=== PATIENT | female | born 1950 | race Hispanic/Latino ===

== ENCOUNTER 2018-03-04 11:54 | Inpatient (IN) | payer MEDICARE, OTHER ==
[2018-03-04 12:21] LABS: Bilirubin Small (Negative); Blood, Urine Large (Negative); Glucose, Urine (Dipstick) >=1000 mg/dL (Negative); Leukocyte Negative (Negative); Nitrite Negative (Negative); Protein, Urine (Dipstick) Negative (Neg-Trace); Urobilinogen 0.2 mg/dL (0.2-1.0)
[2018-03-04 12:27] LABS: Clarity Clear (Clear)
[2018-03-04 12:35] LABS: Other Microscopic Description Less than 2 mL rec'd
[2018-03-04 12:36] LABS: Bacteria/HPF None Seen HPF (None Seen); Hyaline Casts/LPF NONE SEEN LPF (0-3 Hyaline); RBC/HPF 0-3 HPF (0-3); Squamous Epithelial 0-3 HPF (0-3); WBC/HPF 0-3 HPF (0-3); Yeast-All Forms 1+ HPF (None Seen)
[2018-03-04 13:01] LABS: #Basophils 0.1 thou/uL (0.0-0.2); #Eosinphils 0.2 thou/uL (0.0-0.7); #Lymphocytes 1.8 thou/uL (1.20-3.40); #Monocytes 0.4 thou/uL (0.11-0.59); #Neutrophils 3.4 thou/uL (1.40-6.50); %Eosinophils 3.2 % (0.0-10.0); %Lymphocytes 30.7 % (21.0-51.0); %Monocytes 7.4 % (0.0-10.0); %Neutrophils 57.6 % (42.0-75.0); Hemoglobin 12.7 g/dL (12.0-16.0); Mean Corpuscular HGB CONC 34.1 g/dL (32.0-36.0); Mean Corpuscular Hemoglobin 28.3 pg (27.0-31.0); Mean Corpuscular Volume 82.9 fL (78.0-98.0); Mean Platelet Volume 10.3 fL (7.4-10.4); Platelet Count 112 thou/uL (130-400); RBC Distribution Width 13.8 % (11.5-14.5)
[2018-03-04 13:17] LABS: ALT (SGPT) 17 U/L (8-55); AST (SGOT) 17 U/L (5-34); Albumin 3.9 g/dL (3.4-4.8); Alkaline Phosphatase 61 U/L (40-150); Anion Gap 18 mmol/L (10-20); BUN (Urea Nitrogen) 43 mg/dL (9.8-20.1); Bilirubin, Total 0.5 mg/dL (0.2-1.2); Calc. Creatinine Clearance 0 mL/min (70-130); Calcium 10.3 mg/dL (7.8-10.44); Carbon Dioxide 22 mmol/L (23-31); Chloride 89 mmol/L (98-107); Estimated GFR-MDRD 23; Globulin 3.4 g/dL (2.4-3.5); Potassium 5.4 mmol/L (3.5-5.1); Protein, Total 7.3 g/dL (6.0-8.3); Sodium 124 mmol/L (136-145)
[2018-03-04 13:23] LABS: Glucose 637 mg/dL (80-115)
[2018-03-04 13:50] LABS: Base Excess-Venous -2.1 mmol/L (0 (+/- 2.5)); Bicarbonate (HCO3v) 24.8 mmol/L (22.0-29.0); CO2 Tension (PvCO2) 49.7 mmHg (41.0-51.0); Calcium, Ionized 1.23 mmol/L (1.12-1.32); Hemoglobin - Calc 13.9 g/dL (12.0-18.0); O2 Tension (PvO2) 29.6 mmHg (35.0-45.0); Potassium 5.6 mmol/L (3.4-4.7); T. Carbon Dioxide 26.3 mmol/L (1.0-85.0); pH (Venous) 7.306 (7.35-7.45); vO2 Saturation-calc 49.5 % (94-98)
[2018-03-04] MEDS ORDERED: Insulin Regular 100 units/100 ml in NS IVPB SCH (14:00)
--- NOTE | 2018-03-04 15:35 | RAD ---
PORTABLE CHEST ONE VIEW: 02/01/19 at 12:45 p.m. HISTORY: Altered mental status. FINDINGS: Comparison is made with exam of 11/24/15. The heart size is borderline. The lungs are well expanded without focal areas of consolidation, pneum othoraces, pepe pulmonary edema or pleural effusions. IMPRESSION: No acute process. POS: [facility]
--- NOTE | 2018-03-04 15:42 | CT ---
CT BRAIN WITHOUT CONTRAST 03/04/18 HISTORY: Altered mental status. FINDINGS: There are changes of chronic small vessel ischemic disease. No evidence of acute infarct, hemorrhage , midline shift or abnormal extra-axial fluid collections are seen. the ventricular size is appropria te and the basilar cisterns patent. The bony calvarium is intact. The visualized paranasal sinuses an d mastoid air cells are well aerated. IMPRESSION: No CT evidence of acute intracranial process. POS: [facility]
[2018-03-04] MEDS ORDERED: Dextrose 5 %-0.45 % NaCl 1,000 ML IV PRN (16:33)
[2018-03-04] MEDS ORDERED: D5 1/2 NS w/20 mEq KCL 1,000 ML IV PRN (16:33)
[2018-03-04] MEDS ORDERED: NS 0.9% w/ 20 MEQ KCL 1,000 ML/1,000 ML BAG IV PRN ×2 (16:33)
[2018-03-04] MEDS ORDERED: Sodium Chloride 0.9% 1,000 ML IV PRN ×4 (16:33)
[2018-03-04] MEDS ORDERED: Dextrose 5% in Water 1,000 ML IV PRN ×2 (16:33→19:11)
[2018-03-04] MEDS ORDERED: Acetaminophen 325 MG TAB PO PRN (16:34)
[2018-03-04] MEDS ORDERED: Ondansetron ODT 4 MG TAB SL PRN (16:34)
[2018-03-04] MEDS ORDERED: Ondansetron PF 4 MG/2 ML Vial IVP PRN (16:34)
[2018-03-04] MEDS ORDERED: Dextrose 50% Abboject 50 ML SYRINGE SLOW IVP PRN ×2 (16:34→19:16)
[2018-03-04] MEDS ORDERED: Potassium Phosphate 15 MMOL in Sodium Chloride 0.9% 250 ML 250 ML IV PRN (16:36)
[2018-03-04] MEDS ORDERED: CCU ELECTROLYTE REPLACEMENT PROTOCOL FS PRN (16:36)
[2018-03-04] MEDS ORDERED: Magnesium 2 GM/NS 0.9% 100 ML 2 GM in Premix Bag 1 BAG IVPB PRN (16:36)
[2018-03-04] MEDS ORDERED: Potassium Chloride 40 MEQ in Premix Bag 1 BAG IVPB PRN (16:36)
[2018-03-04] MEDS ORDERED: Potassium Phosphate 12 MMOL in Sodium Chloride 0.9% 250 ML 250 ML IV PRN (16:36)
[2018-03-04] MEDS ORDERED: Potassium Phosphate 9 MMOL in Sodium Chloride 0.9% 100 ML IVPB PRN (16:36)
[2018-03-04] MEDS ORDERED: Magnesium Oxide 400 MG TAB PO PRN ×2 (16:36)
[2018-03-04] MEDS ORDERED: Potassium Chloride 20 MEQ TAB PO PRN (16:36)
[2018-03-04] MEDS ORDERED: Potassium Chloride 40 MEQ in Sodium Chloride 0.9% 250 ML 250 ML IVPB PRN (16:36)
[2018-03-04] MEDS ORDERED: ADD ELECTROLYTE REPLACEMENT SET TO PROFILE FS SCH (16:45)
[2018-03-04] MEDS ORDERED: HUMULIN R 100 UNITS in Sodium Chloride 0.9% 100 ML IVPB SCH ×2 (16:45→19:15)
[2018-03-04 17:40] LABS: Anion Gap 14 mmol/L (10-20); BUN (Urea Nitrogen) 40 mg/dL (9.8-20.1); Calc. Creatinine Clearance 0 mL/min (70-130); Calcium 9.6 mg/dL (7.8-10.44); Carbon Dioxide 21 mmol/L (23-31); Chloride 98 mmol/L (98-107); Estimated GFR-MDRD 31; Glucose 300 mg/dL (80-115); Potassium 4.2 mmol/L (3.5-5.1); Sodium 129 mmol/L (136-145)
--- NOTE | 2018-03-04 17:56 | CT ---
CT LUMBAR SPINE NONCONTRAST: 03/04/18 HISTORY: Altered mental status. Hematuria. Back pain. FINDINGS: vertebral body heights and alignment are maintained. Moderate osteophytosis throughout the facets. No acute fracture or dislocation. Small oval lucency in the L1 vertebral body is stable compared to 201 5 and likely represents an atypical hemangioma. No acute fracture or dislocation. IMPRESSION: Disc bulges at multiple levels without focal herniation. Stenosis most severe at the right neural for amen at the lumbosacral junction. Calcification in the arterial structures. IMPRESSION: No acute osseous abnormalities are demonstrated. Degenerative changes lumbar spine. Stenosis most sev ere at the right L5-S1 neural foramen. Clinical correlation regarding the right L5 dermatome is requi red. Atherosclerosis. POS: [facility]
[2018-03-04] MEDS ORDERED: Sodium Chloride 0.9% 1,000 ML IV SCH (18:00)
[2018-03-04 18:07] VITALS: BMI 41.5
--- NOTE | 2018-03-04 18:25 | HP ---
CHIEF COMPLAINT: Altered mental status on and off for the last three weeks. HISTORY OF PRESENT ILLNESS: The patient is a 67-year-old female, who was brought to the emergency room by her daughter with complaints of about her mother acting up, doing things which are not typical for her, not remembering what she had done. She was found to have diabetic ketoacidosis during emergency room evaluation and decision was made about further treatment and diagnostic workup of her medical issues. The patient did not have any headaches. She vomited once last night and the night before. She denied any nausea or diarrhea. She had some abdominal cramping. Also, she complained about some back pain for the last 3 to 4 months. There was no any history of trauma. The daughter mentioned that she noticed that medications the patient had prepared to take in the next 3 days. All of them are gone and she suspects that maybe she took all those medications at once. Also, she is not sure whether the patient is not taking her 's medications, not seen any physician for her illness. Her primary care physician is Dr. Salazar. Her power of lace sewer is Skye Cook, the patient's another daughter. PAST MEDICAL HISTORY: Positive for: 1. Coronary artery disease, status post stenting. 2. Hypothyroidism. 3. Diabetes mellitus, insulin dependent. 4. Hyperlipidemia. 5. Hypertension. PAST SURGICAL HISTORY: 1. Cardiac stent placement. 2. Cholecystectomy. 3. Hysterectomy. 4. Tonsillectomy. PSYCHIATRIC HISTORY: Positive for: 1. Anxiety. 2. Depression. ALLERGIES: NONE. MEDICATIONS: 1. Atorvastatin 10 mg once a day. 2. Cymbalta 60 mg once a day. 3. Aspirin 325 mg once a day. 4. Estradiol one tablet 1 mg once a day. 5. Gabapentin 600 mg four times a day. 6. Glucophage 500 mg three times a day. 7. Insulin Lantus 90 units in the morning and 80 units at night. 8. Victoza 1.8 mg injection daily. 9. Imdur 30 mg once a day. 10. Lovaza 1 g daily. 11. Mavik 2 mg daily. 12. Metoprolol 25 mg twice a day. 13. Omeprazole 40 mg twice a day. 14. Oxybutynin 10 mg once a day. 15. Plavix 75 mg once a day. 16. Ropinirole 1 mg once a day. 17. Synthroid 150 mcg once a day. 18. TriCor 145 mg once a day. 19. Xanax 0.5 mg as needed. 20. Losartan 100 mg once a day. 21. Abilify 5 mg tablets two tablets once a day. FAMILY HISTORY: Her father of lung cancer at the age of 72. He was a smoker. Her mother had heart disease and diabetes mellitus and she passed at the age of 74. SOCIAL HISTORY: She denies any alcohol intake or cigarette smoking or use any illicit drugs. REVIEW OF SYSTEMS: CONSTITUTIONAL: Negative for fever or chills. EYES: Negative for eye pain or eye discharge. ENT: Negative for epistaxis or nasal congestion. CARDIOVASCULAR: Negative for chest pain or palpitation. RESPIRATORY: Negative for shortness of breath or cough. GI: Negative for diarrhea or constipation. Positive for some vomiting. : Positive for some dysuria on and off. Negative for hematuria. PSYCHIATRIC: Negative for suicidal or homicidal ideations. Positive for depression and anxiety in the past. HEMOLYMPHATIC: Negative for easy bruising or clotting abnormalities. MUSCULOSKELETAL: Positive for back pain. PHYSICAL EXAMINATION: GENERAL: She is not in any distress during my visit. Her and her daughter are both present in the room during my visit. VITAL SIGNS: Her blood pressure is 110/58, temperature is 98.0, respiratory rate is 18, pulse is 77, and pulse oximeter is 95% on room air. HEENT: Head is atraumatic and normocephalic. Eyes are PERRLA. Sclerae are nonicteric. Conjunctivae pinkish. Oral mucosa is dry. NECK: Supple. No lymphadenopathy. Thyroid is not palpable. LUNGS: Clear. HEART: S1, S2 normal. No S3. No S4. No any murmur. ABDOMEN: Obese, soft, nontender, nondistended. EXTREMITIES: No clubbing, cyanosis, or edema. She has good pulses on both tibialis posterior and dorsalis pedis arteries similar bilaterally. MUSCULOSKELETAL: She has pain while the pressure is applied to the lumbar spine area. NEUROLOGICAL: She is able to move her all four extremities. She follows my commands. There is no any motor or sensory deficits present. Cranial nerves are intact. LABORATORY DATA: Labs showed normal CBC except for platelet count which is 112 and this is chronic. Chemistry showed sodium of 124, potassium 5.6, chloride 89, CO2 of 22, BUN 43, creatinine 2.1, glucose 637. Lactic acid 1.7 and the rest of chemistry within normal limits. Urinalysis showed more than 1000 of glucose, 15 of ketones, large amount of blood, small amount of bilirubin in the urine, 1+ of urine yeast, but hydroxybutyrate came back at 2.94. Her blood gases, this is venous pH of 7.306, pCO2 49.7, PO2 29.6, and base excess is -2.1. Chest x-ray personally reviewed by me showed no acute cardiopulmonary process. Brain CT showed chronic small-vessel ischemic disease. No evidence of acute infarction. EKG 12-lead showed normal sinus rhythm with ventricular rate of 71 beats per minute. No ischemic changes. Normal axis. IMPRESSION: 1. Diabetic ketoacidosis. 2. Hyperkalemia. 3. Acute on chronic renal insufficiency. 4. Hyponatremia with hypochloremia that is related to diabetic ketoacidosis. 5. Most likely candidal vaginitis based on urinalysis. 6. Chronic thrombocytopenia. 7. Microscopic hematuria, most likely related to a candidal vaginitis. PLAN: Admission to critical care unit. Condition is fair. Activity bedrest and bathroom privileges with assistance. DKA protocol to follow. The patient required two boluses of IV fluids during the emergency room evaluation since her blood pressure went down below 100 systolic. She will receive Diflucan for her candidal vaginitis x1 dose. We will recheck her BMP every 4 hours x2, then tomorrow morning. Recheck her CBC tomorrow morning and beta-hydroxybutyrate level. The patient had several episodes. She had normal CT. We will follow up with this on MRI without contrast. SCDs and Lovenox for DVT prophylaxis. We will also do the CT of the C-spine and lumbar to rule out any other pathology. Job ID: [id number]
[2018-03-05] MEDS: Sodium Chloride 0.9% 1,000 ML IV SCH ×3 (01:45→20:26)
[2018-03-05 05:51] LABS: #Eosinphils 0.3 thou/uL (0.0-0.7); #Lymphocytes 1.1 thou/uL (1.20-3.40); #Monocytes 0.4 thou/uL (0.11-0.59); #Neutrophils 2.6 thou/uL (1.40-6.50); %Eosinophils 6.1 % (0.0-10.0); %Lymphocytes 25.7 % (21.0-51.0); %Monocytes 8.6 % (0.0-10.0); %Neutrophils 58.6 % (42.0-75.0); Hemoglobin 11.6 g/dL (12.0-16.0); Mean Corpuscular HGB CONC 34.3 g/dL (32.0-36.0); Mean Corpuscular Hemoglobin 28.6 pg (27.0-31.0); Mean Corpuscular Volume 83.4 fL (78.0-98.0); Platelet Count 94 thou/uL (130-400); RBC Distribution Width 13.6 % (11.5-14.5); Red Blood Cell (RBC) Count 4.05 mill/uL (4.20-5.40); White Blood Cell (WBC) Count 4.4 thou/uL (4.8-10.8)
[2018-03-05 06:13] LABS: Anion Gap 11 mmol/L (10-20); BUN (Urea Nitrogen) 31 mg/dL (9.8-20.1); Calc. Creatinine Clearance 74 mL/min (70-130); Calcium 8.9 mg/dL (7.8-10.44); Carbon Dioxide 21 mmol/L (23-31); Chloride 102 mmol/L (98-107); Estimated GFR-MDRD 46; Glucose 224 mg/dL (80-115); Potassium 3.9 mmol/L (3.5-5.1); Sodium 130 mmol/L (136-145)
[2018-03-05] MEDS ORDERED: Sodium Chloride 0.9% 1,000 ML IV SCH (07:45)
[2018-03-05] MEDS: Fluconazole 100 MG TAB PO SCH (09:36)
[2018-03-05] MEDS: Enoxaparin Sodium 40 MG/0.4 ML SYRINGE SC SCH (09:36)
--- NOTE | 2018-03-05 09:37 | CON ---
DATE OF CONSULTATION: 03/05/2018 PULMONARY CRITICAL CARE CONSULTATION TIME SPENT: 45 minutes of critical care time. REASON FOR CONSULTATION: DKA. HISTORY OF PRESENT ILLNESS: This is a 67-year-old female, who is unable to give me much in the way history because she is very confused. I have reviewed the history and physical in the chart. She came in yesterday with altered mental status after being found at home by family. She apparently had emesis and complains of abdominal cramping before admission. She was found to be severely hyperglycemic with a blood sugar over 600. PAST MEDICAL HISTORY: 1. Diabetes mellitus type 2, requiring insulin. 2. Coronary artery disease. 3. Hypothyroidism. 4. Hyperlipidemia. 5. Hypertension. 6. Rheumatoid arthritis. 7. Obesity. 8. Diastolic cardiac dysfunction. PAST SURGICAL HISTORY: 1. Coronary stent placement. 2. Cholecystectomy. 3. Hysterectomy. 4. Tonsillectomy. PSYCHIATRIC HISTORY: Remarkable for anxiety and depression. ALLERGIES: NONE. MEDICATIONS: Prior to admission: 1. Atorvastatin 10 mg daily. 2. Cymbalta 60 mg daily. 3. Aspirin 325 mg daily. 4. Estradiol 1 mg daily. 5. Gabapentin 600 mg four times daily. 6. Glucophage 500 mg three times daily. 7. Lantus insulin 90 units in the morning and 80 units at night. 8. Victoza 1.8 mg daily. 9. Imdur 30 mg daily. 10. Lovaza 1 g daily. 11. Mavik 2 mg daily. 12. Metoprolol 25 mg b.i.d. 13. Omeprazole 40 mg twice daily. 14. Oxybutynin 10 mg once daily. 15. Plavix 75 mg daily. 16. Ropinirole 1 mg daily. 17. Synthroid 150 mcg once daily. 18. TriCor 145 mg daily. 19. Xanax 0.5 mg daily. 20. Losartan 100 mg daily. 21. Abilify 5 mg two tablets once daily. FAMILY MEDICAL HISTORY: Father of lung cancer. Mother had heart disease and diabetes. SOCIAL HISTORY: There is no history of alcohol abuse or tobacco consumption. Does not use illicit drugs. REVIEW OF SYSTEMS: Cannot be obtained because the patient is floridly confused at this time. PHYSICAL EXAMINATION: VITAL SIGNS: Temperature 98.7, pulse 86, blood pressure 158/97, O2 saturation 98%, and respiratory rate 23. Intake since admission at least 1374, output not quantitated. HEENT: Remarkable for dry oral mucous membranes. NECK: Without adenopathy, JVD, or bruits. LUNGS: Clear. CARDIAC: S1 and S2, regular. ABDOMEN: Soft and nontender. She has a right upper quadrant open cholecystectomy scar, which is well healed. EXTREMITIES: Without clubbing, cyanosis, or edema. LABORATORY DATA: Sodium 130, potassium 3.9, chloride 102, CO2 of 21, BUN 31, creatinine 1.1, glucose 224. White blood cell count 4.4, hematocrit 33.8, and platelet count 94. Urinalysis showed glucose and ketones. Tox screen showed a beta-hydroxybutyrate of 2.94 is down to 0.71 this morning. DIAGNOSTIC DATA: A chest x-ray from yesterday demonstrates no evidence of mass, effusion, or infiltrate. Lumbar spine CT showed degenerative changes, stenosis of the right L5-S1 neural foramen. Brain CT demonstrates no acute intracranial process. ASSESSMENT: 1. Type 2 diabetes mellitus with mild diabetic ketoacidosis. 2. Severe volume depletion. 3. History of multiple medical problems listed above. 4. Encephalopathy thought secondary to diabetic ketoacidosis. PLAN: 1. The patient is still clinically dry and I would recommend bolusing her with some normal saline. She needs a Velazquez catheter, so we can better monitor her urine output given that she is critically ill. 2. It is likely that she will continue to close her gap and may be able to come off the insulin drip by later this afternoon. Her gap is artificially low at the current time due to her pre-existing hyponatremia. Somehow the hyponatremia is in fact due to hyperglycemia. Job ID: [id number]
[2018-03-05] MEDS ORDERED: Insulin Glargine 90 UNITS in Pre-Filled Syringe 1 EACH SC SCH (10:00)
--- NOTE | 2018-03-05 10:47 | PRG ---
DATE OF SERVICE: 03/05/2018 SUBJECTIVE: The patient is seen and examined at bedside and she is feeling significantly better. There were no any unexpected events overnight. She is on insulin drip. OBJECTIVE: VITAL SIGNS: Blood pressure is 158/97, heart rate 86, respiratory rate 23, and O2 saturation 98% on room air. HEENT: Head is atraumatic and normocephalic. Eyes are PERRLA. Sclerae are nonicteric. Oral mucosa is moist. NECK: Supple. No lymphadenopathy. LUNGS: Clear. HEART: S1 and S2 normal. No S3. No S4. ABDOMEN: Obese, soft, and nontender. EXTREMITIES: No clubbing, cyanosis, or edema. NEUROLOGIC: She follows my commands. She moves her all 4 extremities. There are no any motor or sensory deficits. Cranial nerves are intact. LABORATORY DATA: Labs showed a white count of 4.4, hemoglobin 11.6, hematocrit 33.8, platelet count is 94,000. Sodium is 130, potassium 3.9, chloride 102, CO2 of 21, BUN 31, creatinine 1.17, glucose is down to 207, calcium is 8.9, beta-hydroxybutyrate 0.71. Microbiology, two blood cultures negative. Spine CT showed no acute osseous abnormalities. There is a stenosis, most severe at the right L5-S1 neural foramen and disk bulges at multiple levels without focal herniation, stenosis, most severe at the right neural foramen at the lumbosacral junction. IMPRESSION: 1. Diabetic ketoacidosis with closed gap. The beta-hydroxybutyrate was still elevated this morning, but significantly down to 0.71 . 2. Hyperkalemia, corrected. 3. Hyponatremia, improved with IV fluids. 4. Acute on chronic renal insufficiency, improved with IV fluids. 5. Candidal vaginitis. 6. Chronic thrombocytopenia. 7. Microscopic hematuria, most likely related to candidal vaginitis. 8. Confusional state reported by the family. PLAN: I am going to set her up for MRI of the brain. Head CT was negative in the emergency room for any acute pathology, but according to the family for the last 3 weeks, she is behaving differently and she has some memory lapse, had diabetes. Her DKA will be managed with switching to her regular home regimen for diabetes, which is 90 units of insulin glargine in the morning and 80 units in the evening. Also, we are going to stop insulin drip. Start checking her Accu-Cheks every 2 hours and using aggressive sliding scale and she will need to have follow up with orthopedic surgeon, most likely regarding her spinal stenosis and back pain. For now, we will just treat her pain and get PT involved if she stays longer than additional day or two. Job ID: [id number]
[2018-03-05] MEDS: Sucralfate 1 GM TAB PO SCH ×2 (14:31→20:38)
[2018-03-05] MEDS: Insulin Regular 300 UNITS/3 ML VIAL SC PRN ×5 (15:07→22:20)
[2018-03-05] MEDS: Insulin Glargine 80 UNITS in Pre-Filled Syringe 1 EACH SC SCH (20:31)
[2018-03-05] MEDS: rOPINIRole HCl 1 MG TAB PO SCH (20:35)
[2018-03-05] MEDS: DULoxetine 60 MG CAP PO SCH (20:36)
[2018-03-05] MEDS: risperiDONE 0.25 MG TAB PO SCH (20:36)
[2018-03-05] MEDS: Cyclobenzaprine 10 MG TAB PO SCH (20:37)
[2018-03-05] MEDS: Gabapentin 300 MG CAP PO SCH (20:37)
[2018-03-05] MEDS: ALPRAZolam 0.5 MG TAB PO SCH (20:38)
[2018-03-05] MEDS: Metoprolol Tartrate 25 MG TAB PO SCH (20:38)
[2018-03-05] MEDS: Pantoprazole 40 MG GRANULES PACKET PO SCH (20:39)
[2018-03-05] MEDS: Fenofibrate Nanocrystallized 145 MG TAB PO SCH (20:43)
[2018-03-06] MEDS: Insulin Regular 300 UNITS/3 ML VIAL SC PRN ×8 (00:21→23:52)
[2018-03-06] MEDS: Levothyroxine Sodium 100 MCG TAB PO SCH (05:13)
[2018-03-06] MEDS: Aripiprazole 10 MG TAB PO SCH (08:11)
[2018-03-06] MEDS: ALPRAZolam 0.5 MG TAB PO SCH ×2 (08:11→21:18)
[2018-03-06] MEDS: Atorvastatin Calcium 40 MG TAB PO SCH (08:12)
[2018-03-06] MEDS: Folic Acid 1 MG TAB PO SCH (08:12)
[2018-03-06] MEDS: DULoxetine 60 MG CAP PO SCH ×2 (08:12→21:19)
[2018-03-06] MEDS: Aspirin 81 mg Enteric Coated Tablet PO SCH (08:12)
[2018-03-06] MEDS: Fluconazole 100 MG TAB PO SCH (08:12)
[2018-03-06 08:13] LABS: #Eosinphils 0.2 thou/uL (0.0-0.7); #Monocytes 0.2 thou/uL (0.11-0.59); #Neutrophils 1.2 thou/uL (1.40-6.50); %Basophils 0.8 % (0.0-1.0); %Eosinophils 9.1 % (0.0-10.0); %Lymphocytes 36.6 % (21.0-51.0); %Neutrophils 44.5 % (42.0-75.0); Hemoglobin 11.7 g/dL (12.0-16.0); Mean Corpuscular HGB CONC 33.4 g/dL (32.0-36.0); Mean Corpuscular Hemoglobin 27.9 pg (27.0-31.0); Mean Corpuscular Volume 83.4 fL (78.0-98.0); Mean Platelet Volume 9.4 fL (7.4-10.4); Platelet Count 87 thou/uL (130-400); RBC Distribution Width 13.6 % (11.5-14.5); Red Blood Cell (RBC) Count 4.19 mill/uL (4.20-5.40); White Blood Cell (WBC) Count 2.6 thou/uL (4.8-10.8)
[2018-03-06] MEDS: Metoprolol Tartrate 25 MG TAB PO SCH ×2 (08:13→21:22)
[2018-03-06] MEDS: Enoxaparin Sodium 40 MG/0.4 ML SYRINGE SC SCH (08:13)
[2018-03-06] MEDS: Gabapentin 300 MG CAP PO SCH ×2 (08:13→21:20)
[2018-03-06] MEDS: Pantoprazole 40 MG GRANULES PACKET PO SCH ×2 (08:13→21:18)
[2018-03-06 08:33] LABS: Anion Gap 11 mmol/L (10-20); BUN (Urea Nitrogen) 17 mg/dL (9.8-20.1); Calc. Creatinine Clearance 82 mL/min (70-130); Calcium 8.6 mg/dL (7.8-10.44); Carbon Dioxide 23 mmol/L (23-31); Chloride 104 mmol/L (98-107); Estimated GFR-MDRD 52; Glucose 213 mg/dL (80-115); Potassium 3.9 mmol/L (3.5-5.1); Sodium 134 mmol/L (136-145)
[2018-03-06] MEDS: Insulin Glargine 90 UNITS in Pre-Filled Syringe 1 EACH SC SCH (08:50)
[2018-03-06] MEDS: Oxybutynin ER 5 MG TAB PO SCH (08:51)
[2018-03-06] MEDS: Magnesium Oxide 250 MG TAB PO SCH (08:51)
[2018-03-06] MEDS: Sucralfate 1 GM TAB PO SCH ×3 (08:52→21:19)
[2018-03-06] MEDS ORDERED: OXYBUTYNIN CHLORIDE 10 MG PO SCH (09:00)
[2018-03-06] MEDS ORDERED: Dextrose 50% Abboject 50 ML SYRINGE SLOW IVP PRN (10:21)
[2018-03-06] MEDS ORDERED: Dextrose 5% in Water 1,000 ML IV PRN (10:21)
--- NOTE | 2018-03-06 11:15 | PRG ---
DATE OF SERVICE: 03/06/2018 SUBJECTIVE: The patient is seen and examined at bedside. She does not have much complaints to offer. Her back pain is somewhat better. OBJECTIVE: VITAL SIGNS: Blood pressure is 163/89, pulse is 78, respiratory rate is 23, O2 saturation is 100% on room air. She is obese her BMI is 42. HEENT: Her head is atraumatic and normocephalic. Eyes are PERRLA. Sclerae are nonicteric. Oral mucosa is moist. NECK: Supple. No lymphadenopathy. Thyroid is not palpable. LUNGS: Clear. HEART: S1, S2 normal. No S3. No S4. ABDOMEN: Obese, soft, nontender. EXTREMITIES: No clubbing, cyanosis or edema. NEUROLOGICAL: She follows my commands. She moves her all four extremities. There is no any motor or sensory deficit. Cranial nerves are intact. LABORATORY DATA: White count of 2.6, hemoglobin 11.7, hematocrit 34.9, and platelet count is 87,000. Chemistry showed sodium of 134, potassium 3.9, chloride 104, CO2 of 23, BUN 17, creatinine 1.05. Glycemia is down to 195 and calcium is 8.6. Microbiology; 2 blood cultures are negative. ASSESSMENT: 1. Diabetic ketoacidosis resolved. The patient is switched to her home regimen which is 90 units of insulin Lantus in the morning and 80 in the evening. I am holding her Victoza. She is also on aggressive sliding scale. We will switch her to every 4 hours from every 2 hours. She required approximately 25 units of insulin overnight, so we are going to start to give her additional 20 units of insulin Lantus now. She will be transferred to the medical floor and we will try to adjust her regimen. 2. Hyperkalemia, corrected. 3. Hyponatremia, corrected. 4. Acute on chronic renal insufficiency, improved with IV fluids. 5. Candidal vaginitis, status post treatment with Diflucan. 6. Chronic thrombocytopenia. 7. Leukopenia of unclear etiology at this point. 8. Microscopic hematuria, most likely related to candidal vaginitis. We will repeat the urinalysis. 9. Confusional state reported by the family. Head CT did not show any significant pathology which would explain changes in her behavior for the last 3 weeks. I am going to get an MRI of the brain. We will continue her diabetic regimen trying to adjust the doses of her long-acting and short-acting insulin. We will start PT on her and she will be transferred to the medical floor. Job ID: [id number]
--- NOTE | 2018-03-06 14:35 | PQF ---
CLINICAL DOCUMENTATION IMPROVEMENT CLARIFICATION FORM: ICD-10 Updated PLEASE DO AN ADDENDUM TO THE PROGRESS NOTE WITH ANY DOCUMENTATION UPDATES OR ADDITIONS AND CARRY THROUGH TO DC SUMMARY. THANK YOU. DATE: 03/08/18 ATTN: DR. CARRERA Please exercise your independent, professional judgment in responding to the clarification form. Clinical indicators are provided on the bottom of this form for your review Please check appropriate box(s): [X ] Encephalopathy: Type: [ X] Acute [ ] Subacute [ ] Chronic Etiology: [ ] Hypertensive [ X ] Metabolic [ ] Toxic [ ] Hepatic with Coma [ ] Hepatic w/o Coma [ ] Hypoxic [ ] Septic [ ] Drug induced: [ ] Unspecified [ ] in the setting of underlying dementia [ ] Other (please specify) [ ] Transient Alteration of Awareness [ ] Other diagnosis [ ] Unable to determine In addition, please specify: Present on Admission (POA): [X ] Yes [ ] No [ ] Unable to determine For continuity of documentation, please document condition throughout progress notes and discharge summary. Thank You. CLINICAL INDICATORS - SIGNS / SYMPTOMS / LABS ER NOTE: "MENTAL STATUS CHANGES" PROGRESS NOTE 03/06: "ENCEPHALOPATHY" RISKS: DKA TREATMENT: XANAX (03/05-PRESENT) CYMBALTA (03/05-PRESENT) ABILIFY (STARTED 03/06) INSULIN DRIP IV FLUIDS (03/04-PRESENT) (This form is maintained as a part of the permanent medical record) 2014 [employer]. All Rights Reserved [facility]
--- NOTE | 2018-03-06 14:45 | PRG ---
DATE OF SERVICE: 03/06/2018 SUBJECTIVE: Events have been reviewed. She is in no distress. She is actually tentatively scheduled to move out of the Critical Care Unit. OBJECTIVE: VITAL SIGNS: Heart rate in the 70s, blood pressure 106/55, respiratory rate is 20, oximetry is 100%. LUNGS: Clear. HEART: Regular rhythm. S1 and S2, normal. ABDOMEN: Soft and nontender. EXTREMITIES: Without clubbing, cyanosis, or edema. She moves all her extremities equally. NEUROLOGIC: Her pupils are equal. Her extraocular movements are intact. Her strength appears to be intact, although she is globally deconditioned. IMPRESSION: 1. Status post hyperosmolar coma, clinically improving. 2. Intravascular volume depletion. 3. Diabetes. 4. Rheumatoid arthritis. 5. History of coronary artery disease with coronary artery stenting in the past. 6. Hypothyroidism. 7. History of lipid disorder. 8. History of hypertension. 9. Diastolic dysfunction. PLAN: Continue supportive care. I would agree with transfer out of the Critical Care Unit. Job ID: [id number]
--- NOTE | 2018-03-06 19:09 | MRI ---
MRI BRAIN NONCONTRAST: INDICATIONS: Memory loss. FINDINGS: There is no evidence of acute territorial infarction, intracranial mass effect, or midline shift. Th e ventricular system is age appropriate in size. There is mild to moderate white matter gliosis, fav oring chronic ischemic disease. Focal signal abnormality of the left paramedial alysa is present, wit h associated susceptibility. This could relate to sequela from prior lacunar infarction, with hemosi ruy deposition. No acute restriction of this region is demonstrated. Bilateral mastoid fluid is s een. IMPRESSION: 1. No acute territorial infarction. 2. Findings most consistent with mild to moderate chronic ischemic disease. 3. 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 4. Bilateral mastoid fluid. Correlate clinically. POS: [facility]
[2018-03-06] MEDS: Insulin Glargine 80 UNITS in Pre-Filled Syringe 1 EACH SC SCH (21:14)
[2018-03-06] MEDS: rOPINIRole HCl 1 MG TAB PO SCH (21:19)
[2018-03-06] MEDS: Cyclobenzaprine 10 MG TAB PO SCH (21:20)
[2018-03-06] MEDS: Fenofibrate Nanocrystallized 145 MG TAB PO SCH (21:20)
[2018-03-06] MEDS: risperiDONE 0.25 MG TAB PO SCH (21:20)
[2018-03-07] MEDS: Insulin Regular 300 UNITS/3 ML VIAL SC PRN ×4 (04:08→21:21)
[2018-03-07] MEDS: Levothyroxine Sodium 100 MCG TAB PO SCH (05:14)
--- NOTE | 2018-03-07 10:09 | PDOC.PN ---
- Subjective Encounter Start Date: 03/07/18 Encounter Start Time: 10:08 Ms. Arce was seen today in follow-up of DKA and metabolic encephalopathy. She appears to be at her baseline. She is oriented to person place and time. She does not have any complaints. - Objective Resuscitation Status - Order Detail: 03/04/18 15:24 Resuscitation Status Routine Resuscitation Status: FULL: Full Resuscitation MAR Reviewed: Yes Vital Signs & Weight: Vital Signs (12 hours) Temp 03/07/18 04:00 98.7 F 03/07/18 00:00 97.8 F Weight Weight 224 lb 13.944 oz Most Recent Monitor Data Heart Rate from ECG 76 NIBP 158/80 NIBP BP-Mean 106 Respiration from ECG 21 SpO2 99 I&O: 03/06/18 03/07/18 03/08/18 06:59 06:59 06:59 Intake Total 3791 2008 Output Total 3918 6171 Balance -124 -1126 Result Diagrams: 03/06/18 07:25 03/06/18 07:26 Additional Labs: Accuchecks 03/07/18 03/06/18 03/06/18 04:01 23:48 21:11 POC Glucose 163 H 260 H 309 H 03/06/18 03/06/18 16:36 12:07 POC Glucose 303 H 318 H Phys Exam - Physical Examination HEENT: PERRLA Respiratory: no wheezing, no rales, no rhonchi, clear to auscultation bilateral Cardiovascular: RRR, no significant murmur, no rub Gastrointestinal: soft, non-tender, no distention, positive bowel sounds Musculoskeletal: no edema, pulses present Dx/Plan (1) DKA, type 2 Code(s): E11.10 - TYPE 2 DIABETES MELLITUS WITH KETOACIDOSIS WITHOUT COMA Status: Resolved (2) Diabetes mellitus type 2, uncomplicated Code(s): E11.9 - TYPE 2 DIABETES MELLITUS WITHOUT COMPLICATIONS Status: Acute (3) Hypertension Code(s): I10 - ESSENTIAL (PRIMARY) HYPERTENSION Status: Chronic (4) Hypothyroidism Code(s): E03.9 - HYPOTHYROIDISM, UNSPECIFIED Status: Chronic - Plan * DKA- resolved. Her blood glucose continues to be a bit elevated * DM- BS is better. continue to titrate insulin as needed and continue SSI * Confusion- likely from metabolic encephalopathy from DKA- this has improved- HOWEVER, is poke with the patient's daughter who informs me that that confusion has been progressing over the past 3 weeks. She has having trouble knowing if it was night or day. 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 She also has been confusing her medications with her husbands. I suspect she may have early dementia- possibly multi-infarct.- will consult Case Management- for HH or intermediate * HTN-. blood pressure is stable * Hypothyroidism- she appears clinically euthyroid- will check a TSH and free T4 with the next blood draw
[2018-03-07] MEDS: DULoxetine 60 MG CAP PO SCH ×2 (11:08→21:27)
[2018-03-07] MEDS: Aspirin 81 mg Enteric Coated Tablet PO SCH (11:08)
[2018-03-07] MEDS: Gabapentin 300 MG CAP PO SCH ×2 (11:08→21:29)
[2018-03-07] MEDS: Folic Acid 1 MG TAB PO SCH (11:08)
[2018-03-07] MEDS: Enoxaparin Sodium 40 MG/0.4 ML SYRINGE SC SCH (11:08)
[2018-03-07] MEDS: Atorvastatin Calcium 40 MG TAB PO SCH (11:08)
[2018-03-07] MEDS: Aripiprazole 10 MG TAB PO SCH (11:09)
[2018-03-07] MEDS: Metoprolol Tartrate 25 MG TAB PO SCH ×2 (11:15→21:32)
[2018-03-07] MEDS: Magnesium Oxide 250 MG TAB PO SCH (11:15)
[2018-03-07] MEDS: Pantoprazole 40 MG GRANULES PACKET PO SCH ×2 (11:15→21:29)
[2018-03-07] MEDS: Sucralfate 1 GM TAB PO SCH ×3 (11:15→21:31)
[2018-03-07] MEDS: Insulin Glargine 90 UNITS in Pre-Filled Syringe 1 EACH SC SCH (11:16)
[2018-03-07] MEDS: Oxybutynin ER 5 MG TAB PO SCH (11:16)
[2018-03-07] MEDS: Sodium Chloride 0.9% 1,000 ML IV SCH (11:17)
[2018-03-07 11:18] LABS: Free T4 (Free Thyroxine) 1.87 ng/dL (0.70-1.48); Thyroid Stimulating Hormone 0.0295 uIU/mL (0.35-4.94)
[2018-03-07] MEDS: ALPRAZolam 0.5 MG TAB PO SCH ×2 (11:29→21:26)
[2018-03-07 11:36] LABS: Folate (Folic Acid) 11.4 ng/mL (7.0-31.4)
--- NOTE | 2018-03-07 17:12 | PRG ---
DATE OF SERVICE: 03/07/2018 SUBJECTIVE: Claude has no new complaints. OBJECTIVE: VITAL SIGNS: She is afebrile. Heart rate is in the 80s, blood pressure 111/77, and respiratory rate is 20. LUNGS: She has clear lungs. HEART: Regular rhythm. ABDOMEN: Nontender. LABORATORY DATA: White count 2.6 yesterday. There is no lab today. IMPRESSION: 1. Hyperosmolar state, resolved. 2. Anemia of chronic disease. 3. Borderline pancytopenia. 4. Encephalopathy, resolved. Apparently, the patient was having confusion leading up to this, so I would wonder about early vascular dementia. 5. Hypertension. 6. Hypothyroidism, now with a low TSH. PLAN: Continue supportive care with eventual placement. Job ID: [id number]
[2018-03-07] MEDS: Insulin Glargine 80 UNITS in Pre-Filled Syringe 1 EACH SC SCH (21:23)
[2018-03-07] MEDS: Cyclobenzaprine 10 MG TAB PO SCH (21:27)
[2018-03-07] MEDS: Fenofibrate Nanocrystallized 145 MG TAB PO SCH (21:28)
[2018-03-07] MEDS: risperiDONE 0.25 MG TAB PO SCH (21:30)
[2018-03-07] MEDS: rOPINIRole HCl 1 MG TAB PO SCH (21:31)
[2018-03-08] MEDS: Insulin Regular 300 UNITS/3 ML VIAL SC PRN ×4 (00:03→21:44)
[2018-03-08] MEDS: Levothyroxine Sodium 100 MCG TAB PO SCH (05:11)
[2018-03-08] MEDS: Sodium Chloride 0.9% 1,000 ML IV SCH (05:12)
[2018-03-08] MEDS: metFORMIN 500 MG TAB PO SCH ×3 (09:00→21:43)
[2018-03-08] MEDS ORDERED: Vecuronium 10 MG VIAL ONE (09:40)
[2018-03-08] MEDS ORDERED: Rocuronium Bromide 10 MG/ML (10ML VIAL) ONE (09:40)
[2018-03-08] MEDS: Enoxaparin Sodium 40 MG/0.4 ML SYRINGE SC SCH (09:57)
[2018-03-08] MEDS: Metoprolol Tartrate 25 MG TAB PO SCH ×2 (09:58→21:43)
[2018-03-08] MEDS: Aripiprazole 10 MG TAB PO SCH (09:58)
[2018-03-08] MEDS: Gabapentin 300 MG CAP PO SCH ×2 (09:58→21:43)
[2018-03-08] MEDS: Aspirin 81 mg Enteric Coated Tablet PO SCH (09:58)
[2018-03-08] MEDS: DULoxetine 60 MG CAP PO SCH ×2 (09:59→21:44)
[2018-03-08] MEDS: Folic Acid 1 MG TAB PO SCH (09:59)
[2018-03-08] MEDS: ALPRAZolam 0.5 MG TAB PO SCH ×2 (10:00→21:44)
[2018-03-08] MEDS: Atorvastatin Calcium 40 MG TAB PO SCH (10:00)
[2018-03-08] MEDS: Insulin Glargine 90 UNITS in Pre-Filled Syringe 1 EACH SC SCH (10:06)
[2018-03-08] MEDS: Magnesium Oxide 250 MG TAB PO SCH (10:08)
[2018-03-08] MEDS: Sucralfate 1 GM TAB PO SCH ×3 (10:10→21:43)
[2018-03-08] MEDS: Oxybutynin ER 5 MG TAB PO SCH (10:10)
[2018-03-08] MEDS ORDERED: Ondansetron PF 4 MG/2 ML Vial IVP PRN (10:19)
[2018-03-08] MEDS ORDERED: Ondansetron ODT 4 MG TAB PO PRN (10:19)
--- NOTE | 2018-03-08 10:23 | PDOC.PN ---
- Subjective Encounter Start Date: 03/08/18 Encounter Start Time: 10:20 Ms. Arce was seen today in follow-up of DKA and metabolic encephalopathy. She does not have ny complaints this morning. - Objective Resuscitation Status - Order Detail: 03/04/18 15:24 Resuscitation Status Routine Resuscitation Status: FULL: Full Resuscitation MAR Reviewed: Yes Vital Signs & Weight: Vital Signs (12 hours) Temp BP 03/08/18 10:09 161/80 H 03/08/18 04:00 98.0 F 03/08/18 00:00 97.9 F Weight Weight 229 lb 4.492 oz Most Recent Monitor Data Heart Rate from ECG 77 NIBP 112/57 NIBP BP-Mean 75 Respiration from ECG 22 SpO2 96 I&O: 03/07/18 03/08/18 03/09/18 06:59 06:59 06:59 Intake Total 2008 2351 Output Total 2089 4284 Balance -0750 -7153 Result Diagrams: 03/06/18 07:25 03/06/18 07:26 Additional Labs: Accuchecks 03/08/18 03/08/18 03/07/18 05:10 00:02 21:19 POC Glucose 217 H 288 H 308 H 03/07/18 17:26 POC Glucose 352 H Phys Exam - Physical Examination HEENT: PERRLA Respiratory: no wheezing, no rales, no rhonchi, clear to auscultation bilateral Cardiovascular: RRR, no significant murmur, no rub Gastrointestinal: soft, non-tender, no distention, positive bowel sounds Musculoskeletal: no edema, pulses present Neurological: non-focal Dx/Plan (1) Metabolic encephalopathy Code(s): G93.41 - METABOLIC ENCEPHALOPATHY Status: Acute (2) DKA, type 2 Code(s): E11.10 - TYPE 2 DIABETES MELLITUS WITH KETOACIDOSIS WITHOUT COMA Status: Resolved (3) Diabetes mellitus type 2, uncomplicated Code(s): E11.9 - TYPE 2 DIABETES MELLITUS WITHOUT COMPLICATIONS Status: Acute (4) Hypertension Code(s): I10 - ESSENTIAL (PRIMARY) HYPERTENSION Status: Chronic (5) Hypothyroidism Code(s): E03.9 - HYPOTHYROIDISM, UNSPECIFIED Status: Chronic - Plan * Metabolic encephalopathy- improving- however I suspect she has some underlying dementia * DM- her blood glucose is still uncontrolled- will add Metformin back * Hypothyroidism- she appears to be over-replaced- will decrease her dose of Levothyroxine * HTN- blood pressure has been in an acceptable range * Will begin discharge planning
[2018-03-08] MEDS ORDERED: Metoclopramide HCl 10 MG/2 ML VIAL IVP PRN (11:41)
[2018-03-08 12:57] LABS: Troponin I Less than 0.010 ng/mL (< 0.028)
[2018-03-08 15:40] LABS: Troponin I 0.043 ng/mL (< 0.028)
--- NOTE | 2018-03-08 16:03 | EKG ---
Test Reason : Blood Pressure : / mmHG Vent. Rate : 071 BPM Atrial Rate : 071 BPM P-R Int : 208 ms QRS Dur : 094 ms QT Int : 406 ms P-R-T Axes : 044 -09 015 degrees QTc Int : 441 ms Normal sinus rhythm Normal ECG When compared with ECG of 04-MAR-2018 12:42, (Unconfirmed) T wave inversion now evident in Inferior leads Confirmed by BRIAN DESAI, . SBen (4) on 03/08/2018 4:02:47 PM Referred By: DEANDRE Confirmed By:DR. Carlito TORRES MD
[2018-03-08] MEDS: Pantoprazole 40 MG GRANULES PACKET PO SCH (16:25)
[2018-03-08 18:52] LABS: Troponin I 0.038 ng/mL (< 0.028)
--- NOTE | 2018-03-08 20:30 | PRG ---
DATE OF SERVICE: 03/08/2018 SUBJECTIVE: Claude has no new complaints. OBJECTIVE: VITAL SIGNS: Oximetry is 94% on room air. Heart rate 76, respiratory rates in the 20s. LUNGS: Clear. HEART: Regular rhythm. ABDOMEN: Soft and nontender. LABORATORY DATA: White count 2.6. She has no new lab today. No electrolytes today. IMPRESSION: 1. Hyperosmolar state, resolved. 2. Pancytopenia, she probably should have some more lab done to follow this. 3. Encephalopathy which resolved. She does have evidence of small-vessel microvascular disease, but she is quite sharp. She remembers what happened this morning, what happened yesterday with the nurses, so I doubt she has any dementia. She does have multiple life stresses and continues to get up at 3 o'clock in the morning to work with her . Her family wants her to "work" but her and her are not really sure they want to do this. Obviously, this is a family decision but would label her as having dementia based on just this. I explained to her after she told me that she does have memory problems at home that she should get in to see [facility] and have a neuropsychiatric evaluation. This would help sort out whether or not she truly has some degree of dementia or just has pseudodementia associated with depression, her life stresses. We will be happy to continue to follow along with other physicians caring for. Job ID: [id number]
[2018-03-08 21:33] LABS: Troponin I 0.027 ng/mL (< 0.028)
[2018-03-08] MEDS: risperiDONE 0.25 MG TAB PO SCH (21:43)
[2018-03-08] MEDS: Cyclobenzaprine 10 MG TAB PO SCH (21:43)
[2018-03-08] MEDS: Fenofibrate Nanocrystallized 145 MG TAB PO SCH (21:44)
[2018-03-08] MEDS: Insulin Glargine 80 UNITS in Pre-Filled Syringe 1 EACH SC SCH (21:44)
[2018-03-08] MEDS: rOPINIRole HCl 1 MG TAB PO SCH (21:44)
[2018-03-09] MEDS: Levothyroxine 175 MCG TAB PO SCH (06:00)
[2018-03-09] MEDS: Insulin Glargine 90 UNITS in Pre-Filled Syringe 1 EACH SC SCH (08:53)
[2018-03-09] MEDS: Enoxaparin Sodium 40 MG/0.4 ML SYRINGE SC SCH (08:53)
[2018-03-09] MEDS: Folic Acid 1 MG TAB PO SCH (08:54)
[2018-03-09] MEDS: Aripiprazole 10 MG TAB PO SCH (08:54)
[2018-03-09] MEDS: metFORMIN 500 MG TAB PO SCH ×3 (08:55→21:04)
[2018-03-09] MEDS: Gabapentin 300 MG CAP PO SCH ×2 (08:55→21:03)
[2018-03-09] MEDS: ALPRAZolam 0.5 MG TAB PO SCH ×2 (08:55→21:04)
[2018-03-09] MEDS: Atorvastatin Calcium 40 MG TAB PO SCH (08:55)
[2018-03-09] MEDS: Metoprolol Tartrate 25 MG TAB PO SCH ×3 (08:55→21:55)
[2018-03-09] MEDS: Aspirin 81 mg Enteric Coated Tablet PO SCH (08:55)
[2018-03-09] MEDS: Oxybutynin ER 5 MG TAB PO SCH (08:55)
[2018-03-09] MEDS: DULoxetine 60 MG CAP PO SCH ×2 (08:55→21:04)
[2018-03-09] MEDS: Sucralfate 1 GM TAB PO SCH ×3 (08:55→21:04)
--- NOTE | 2018-03-09 09:53 | PRG ---
DATE OF SERVICE: 03/09/2018 SUBJECTIVE: Ms. Arce is adamantly opposed to going into any rehab environment. She wants her Velazquez out. She wants to start ambulating. I have written an order to discontinue her Velazquez and get physical therapy involved. I have explained to her at length that she did develop her severe hyperglycemia within a few hours of missing a dose of insulin or anything like that. She will admit. She has had memory issues and I have again suggested to her that once she is discharged, she get connected with a neuropsychologist. We have in town for an evaluation. OBJECTIVE: LUNGS: Clear today. VITAL SIGNS: Stable. Blood pressure is mildly elevated this morning at 165/77. GENERAL: She is in no distress. HEART: Regular rhythm. ABDOMEN: Soft. LABORATORY DATA: White count has not been rechecked. She was borderline pancytopenic 3 days ago. IMPRESSION: 1. Hyperosmolar state, resolved. 2. Borderline pancytopenia. 3. Microvascular disease in her brain. She has excellent short-term memory this hospitalization. No stress or depression. PLAN: Enrolled in her dysfunction at home. She labels one of her daughters is noticing her dysfunction the most. Neuropsychiatric testing again would be helpful to this. Repeat CBC would probably be helpful and then hematology input if she continues with neutropenia and thrombocytopenia. Her blood glucoses are better. She says her blood glucose was 180 this morning, although, it is not entered in the computer yet. Since she is stable out of the critical care environment, I will see her as needed in the future. Job ID: [id number]
[2018-03-09] MEDS: Magnesium Oxide 250 MG TAB PO SCH (11:15)
--- NOTE | 2018-03-09 14:06 | PDOC.PN ---
- Subjective Encounter Start Date: 03/09/18 Encounter Start Time: 14:05 Ms. Severino was seen today in follow-up of DKA, and altered mental status. She does not have any complaints today and is anxious to go home. - Objective Resuscitation Status - Order Detail: 03/04/18 15:24 Resuscitation Status Routine Resuscitation Status: FULL: Full Resuscitation MAR Reviewed: Yes Vital Signs & Weight: Vital Signs (12 hours) Temp Pulse Resp BP BP Pulse Ox 03/09/18 09:00 165/77 H 03/09/18 08:01 98.1 F 72 20 165/77 H 96 03/09/18 08:00 96 03/09/18 04:00 97.9 F 81 18 107/56 L 94 L Weight Weight 228 lb 6.4 oz Most Recent Monitor Data Heart Rate from ECG 76 NIBP 148/86 NIBP BP-Mean 106 Respiration from ECG 26 SpO2 97 I&O: 03/08/18 03/09/18 03/10/18 06:59 06:59 06:59 Intake Total 2352 542 Output Total 4285 685 1950 Balance -1933 -143 -1950 Result Diagrams: 03/06/18 07:25 03/06/18 07:26 Additional Labs: Accuchecks 03/09/18 03/09/18 03/08/18 11:33 05:55 20:55 POC Glucose 160 H 149 H 226 H 03/08/18 17:00 POC Glucose 225 H Phys Exam - Physical Examination HEENT: PERRLA Respiratory: no wheezing, no rales, no rhonchi, clear to auscultation bilateral Cardiovascular: RRR, no significant murmur, no rub Gastrointestinal: soft, non-tender, no distention, positive bowel sounds Musculoskeletal: no edema, pulses present Dx/Plan (1) Metabolic encephalopathy Code(s): G93.41 - METABOLIC ENCEPHALOPATHY Status: Acute (2) DKA, type 2 Code(s): E11.10 - TYPE 2 DIABETES MELLITUS WITH KETOACIDOSIS WITHOUT COMA Status: Resolved (3) Diabetes mellitus type 2, uncomplicated Code(s): E11.9 - TYPE 2 DIABETES MELLITUS WITHOUT COMPLICATIONS Status: Acute (4) Hypertension Code(s): I10 - ESSENTIAL (PRIMARY) HYPERTENSION Status: Chronic (5) Hypothyroidism Code(s): E03.9 - HYPOTHYROIDISM, UNSPECIFIED Status: Chronic - Plan * Metabolic Encephalopathy- resolved. Agree with Outpatient Neuro -psychiatric testing to help differentiate Dementia from Pseudo -dementia * DM- blood glucose is much better * Hypothyroidism- she was slightly over-replaced- the dose of Levothyroxine has been reduced * I suspect she should be ready for discharge home tomorrow.
[2018-03-09] MEDS: Insulin Regular 300 UNITS/3 ML VIAL SC PRN ×2 (16:59→21:03)
[2018-03-09] MEDS: Insulin Glargine 80 UNITS in Pre-Filled Syringe 1 EACH SC SCH (21:02)
[2018-03-09] MEDS: risperiDONE 0.25 MG TAB PO SCH (21:03)
[2018-03-09] MEDS: Fenofibrate Nanocrystallized 145 MG TAB PO SCH (21:03)
[2018-03-09] MEDS: Cyclobenzaprine 10 MG TAB PO SCH (21:04)
[2018-03-09] MEDS: rOPINIRole HCl 1 MG TAB PO SCH (21:04)
[2018-03-10] MEDS: Levothyroxine 175 MCG TAB PO SCH (05:18)
[2018-03-10] MEDS: Insulin Regular 300 UNITS/3 ML VIAL SC PRN ×2 (05:28→13:20)
[2018-03-10 08:16] VITALS: TEMP 98.1
[2018-03-10] MEDS: Insulin Glargine 90 UNITS in Pre-Filled Syringe 1 EACH SC SCH (09:07)
[2018-03-10] MEDS: Magnesium Oxide 250 MG TAB PO SCH (09:07)
[2018-03-10] MEDS: Gabapentin 300 MG CAP PO SCH (09:08)
[2018-03-10] MEDS: metFORMIN 500 MG TAB PO SCH ×2 (09:08→14:36)
[2018-03-10] MEDS: ALPRAZolam 0.5 MG TAB PO SCH (09:08)
[2018-03-10] MEDS: Aripiprazole 10 MG TAB PO SCH (09:08)
[2018-03-10] MEDS: Aspirin 81 mg Enteric Coated Tablet PO SCH (09:10)
[2018-03-10] MEDS: Enoxaparin Sodium 40 MG/0.4 ML SYRINGE SC SCH (09:10)
[2018-03-10] MEDS: DULoxetine 60 MG CAP PO SCH (09:10)
[2018-03-10] MEDS: Atorvastatin Calcium 40 MG TAB PO SCH (09:10)
[2018-03-10] MEDS: Sucralfate 1 GM TAB PO SCH ×2 (09:11→14:36)
[2018-03-10] MEDS: Folic Acid 1 MG TAB PO SCH (09:11)
[2018-03-10] MEDS: Oxybutynin ER 5 MG TAB PO SCH (09:11)
[2018-03-10] MEDS: Metoprolol Tartrate 25 MG TAB PO SCH (09:11)
--- NOTE | 2018-03-10 12:25 | PDOC.PN ---
- Subjective Encounter Start Date: 03/10/18 Encounter Start Time: 12:24 Ms. Arce was seen today in follow-up of Diabetes. She does not have any complaints this morning - Objective Resuscitation Status - Order Detail: 03/04/18 15:24 Resuscitation Status Routine Resuscitation Status: FULL: Full Resuscitation MAR Reviewed: Yes Vital Signs & Weight: Vital Signs (12 hours) Temp Pulse Resp BP BP Pulse Ox 03/10/18 09:58 141/78 H 03/10/18 08:11 98.1 F 82 16 141/78 H 97 03/10/18 08:00 97 Weight Weight 228 lb 6.4 oz Most Recent Monitor Data Heart Rate from ECG 76 NIBP 148/86 NIBP BP-Mean 106 Respiration from ECG 26 SpO2 97 I&O: 03/09/18 03/10/18 03/11/18 06:59 06:59 06:59 Intake Total 542 1920 Output Total 685 1950 Balance -143 -30 Result Diagrams: 03/06/18 07:25 03/06/18 07:26 Additional Labs: Accuchecks 03/10/18 03/10/18 03/09/18 11:18 05:27 20:30 POC Glucose 264 H 209 H 309 H 03/09/18 16:03 POC Glucose 250 H Phys Exam - Physical Examination Respiratory: no wheezing, no rales, no rhonchi, clear to auscultation bilateral Cardiovascular: RRR, no significant murmur, no rub Gastrointestinal: soft, positive bowel sounds Dx/Plan (1) Metabolic encephalopathy Code(s): G93.41 - METABOLIC ENCEPHALOPATHY Status: Acute (2) DKA, type 2 Code(s): E11.10 - TYPE 2 DIABETES MELLITUS WITH KETOACIDOSIS WITHOUT COMA Status: Resolved (3) Diabetes mellitus type 2, uncomplicated Code(s): E11.9 - TYPE 2 DIABETES MELLITUS WITHOUT COMPLICATIONS Status: Acute (4) Hypertension Code(s): I10 - ESSENTIAL (PRIMARY) HYPERTENSION Status: Chronic (5) Hypothyroidism Code(s): E03.9 - HYPOTHYROIDISM, UNSPECIFIED Status: Chronic - Plan * DKA- resolved * DM- blood glucose is a bit elevated- but she can safely be discharged home, and Victoza will be continued as an out patient .
[2018-03-10] MEDS: CLOMIPRAMINE HCL 50 MG PO SCH ×2 (17:20→17:22)
[2018-03-10 17:23] VITALS: BP 101/66
--- NOTE | 2018-03-11 00:57 | DIS ---
DATE OF ADMISSION: 03/04/2018 DATE OF DISCHARGE: 03/10/2018 DISCHARGE DISPOSITION: Home. PRIMARY DISCHARGE DIAGNOSES: 1. Diabetic ketoacidosis. 2. Hyperkalemia. 3. Acute on chronic kidney disease. 4. Possible dementia versus pseudodementia. 5. Hypothyroidism. 6. Coronary artery disease. DISCHARGE MEDICATIONS: 1. Her dose of levothyroxine was decreased to 175 mcg daily due to over replacement. 2. Continue prednisone daily. 3. Lantus insulin 90 units in the morning and 80 in the evening. 4. Carafate 1 g 3 times a day. 5. Ropinirole 1 mg daily. 6. Protonix 40 mg twice daily. 7. Oxybutynin 10 mg extended release daily. 8. Lopressor 25 mg daily. 9. Metformin 500 mg t.i.d. 10. Cozaar 100 mg daily. 11. Victoza 1.8 mg subcu daily. 12. Imdur 60 mg daily. 13. Folic acid 1 mg daily. 14. Fenofibrate 145 mg at bedtime. 15. Estrace 1 mg daily. 16. Cymbalta 60 mg twice a day. 17. Flexeril 10 mg at bedtime. 18. Anafranil 50 mg daily. 19. Lipitor 40 mg daily. 20. Aspirin 81 mg daily. 21. Abilify 5 mg daily. 22. Xanax 0.5 mg twice a day. PROCEDURES DONE DURING ADMISSION: The patient had a CT scan of the brain. There was no evidence of any acute intracranial process. The patient had a CT scan of the lumbar spine showing no osseous abnormalities. There was some degenerative changes and there was severe stenosis at the foramen. 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 CODE STATUS: Full code. ALLERGIES: LISPRO INSULIN. HOSPITAL COURSE: Ms. Arce is a pleasant 67-year-old female, who was admitted to the hospital with altered mental status. The full details of which are outlined in the history and physical. She was found to be in DKA. This is thought to be the result of mixing up her medications. The patient's daughter revealed that the patient was having difficulties with her memory off and on at home. They also were concerned that she was accidentally taking her 's medications and possibly even over taking her own. For this reason, a home health evaluation is being done to help with her medication management in the outpatient setting. I also offered referral to a prison facility for some time. However, the patient did not want this neither did her daughter, who is her medical power of attorney lawyer. He was also recommended that she get neuropsychiatric testing in the outpatient setting to see if she has early dementia versus possible pseudodementia. The patient admits to having quite few stressors at home. The patient's blood glucose improved over the course of her hospital stay, actually fairly well controlled on her usual home medication with the exception of the Victoza, which she was not able to get while in the hospital. She will be discharged home on her usual regimen and to follow up with her primary care physician as soon as possible for further adjustment and management of her diabetes medications. Job ID: [id number]
== END 2018-03-10 17:14 | disposition home or self-care (01) | DRG 637 ==
LOC: ERS 11:54 → CCU 14:27 → T4-B 03-08 15:31
PROVIDERS: ADMIT Internal Medicine; ATTEND Internal Medicine
DX: E11.10 Type 2 diabetes mellitus with ketoacidosis without coma (principal); G93.41 Metabolic encephalopathy; N17.9 Acute kidney failure, unspecified; E87.1 Hypo-osmolality and hyponatremia; I25.10 Atherosclerotic heart disease of native coronary artery without angina pectoris; E03.9 Hypothyroidism, unspecified; E78.5 Hyperlipidemia, unspecified; F41.9 Anxiety disorder, unspecified; F32.9 Major depressive disorder, single episode, unspecified; E87.5 Hyperkalemia; E11.22 Type 2 diabetes mellitus with diabetic chronic kidney disease; D63.8 Anemia in other chronic diseases classified elsewhere; I12.9 Hypertensive chronic kidney disease with stage 1 through stage 4 chronic kidney disease, or unspecified chronic kidney disease; N18.9 Chronic kidney disease, unspecified; B37.3 Candidiasis of vulva and vagina; D69.6 Thrombocytopenia, unspecified; R31.29 Other microscopic hematuria; Z79.4 Long term (current) use of insulin; Z79.82 Long term (current) use of aspirin; Z90.49 Acquired absence of other specified parts of digestive tract; Z95.5 Presence of coronary angioplasty implant and graft; Z80.1 Family history of malignant neoplasm of trachea, bronchus and lung; Z83.3 Family history of diabetes mellitus; Z82.49 Family history of ischemic heart disease and other diseases of the circulatory system
CPT/HCPCS: 36415; 36416; 70450; 70551; 71045; 72131; 80048; 80053; 81003; 81015; 82010; 82330; 82607; 82746; 82803; 83605; 84439; 84443; 84484; 85025; 87040; 87086; 93005; 93010; 96361; 96365; 96366; J1650; J1815; J1825; J7050; Q0162

== ENCOUNTER 2018-07-16 14:55 | Inpatient (IN) | payer MEDICARE, OTHER ==
[2018-07-16 16:02] LABS: Base Excess-Venous -4.9 mmol/L (-2.0 to 3.0); Bicarbonate (HCO3v) 19.2 mmol/L (22.0-28.0); Calcium, Ionized 1.17 mmol/L (See Comments:); Chloride 90 mmol/L (98-107); Hemoglobin - Calc 11.5 g/dL (12.0-16.0); O2 Tension (PvO2) 99.7 mmHg (35.0-45.0); Potassium 5.2 mmol/L (3.5-5.1); Sodium 135 mmol/L (138-145); T. Carbon Dioxide 20.2 mmol/L (22.0-28.0); pH (Venous) 7.387 (7.320-7.430); vO2 Saturation-calc 97.7 % (60.0-85.0)
[2018-07-16 16:08] LABS: #Eosinphils 0.1 thou/uL (0.0-0.7); #Lymphocytes 1.1 thou/uL (1.20-3.40); #Monocytes 0.4 thou/uL (0.11-0.59); #Neutrophils 3.1 thou/uL (1.40-6.50); %Basophils 0.3 % (0.0-1.0); %Eosinophils 2.7 % (0.0-10.0); %Lymphocytes 22.7 % (21.0-51.0); %Monocytes 7.5 % (0.0-10.0); %Neutrophils 66.8 % (42.0-75.0); Hemoglobin 10.6 g/dL (12.0-16.0); Mean Corpuscular HGB CONC 34.8 g/dL (32.0-36.0); Mean Corpuscular Hemoglobin 29.1 pg (27.0-31.0); Mean Corpuscular Volume 83.7 fL (78.0-98.0); Mean Platelet Volume 9.9 fL (7.4-10.4); Platelet Count 93 thou/uL (130-400); RBC Distribution Width 12.4 % (11.5-14.5); Red Blood Cell (RBC) Count 3.64 mill/uL (4.20-5.40); White Blood Cell (WBC) Count 4.7 thou/uL (4.8-10.8)
--- NOTE | 2018-07-16 16:10 | RAD ---
RADIOGRAPH CHEST 1 VIEW: DATE: 07/16/2018 HISTORY: 67-year-old female with chest pain FINDINGS: Limited study because of body habitus. There is no airspace density, pulmonary edema, or pneumothorax . The lateral costophrenic angles are not effaced. IMPRESSION: No acute pulmonary findings.
--- NOTE | 2018-07-16 16:23 | CT ---
CT BRAIN NONCONTRAST: DATE: 07/16/2018 HISTORY: 67-year-old female status post head trauma from fall FINDINGS: There is no evidence of acute intra-axial or extra-axial hemorrhage. There is no midline shift or any other mass effect. There is no extra-axial fluid collection. There is no evidence of obstructive hydrocephalus. Calvarium is intact. There is diffuse brain parenchymal volume loss. There are low att enuation areas in the white matter. These are nonspecific, but in a patient of this age, they are probably chronic ischemic white matter changes due to microvascular atherosclerosis. Small patchy reg ion of encephalomalacia and gliosis in the left frontal pulido radiata periventricular white matter abutting the left caudate nucleus. No interval change since 03/04/2018. IMPRESSION: 1) No acute intracranial findings. 2) involutional changes and chronic ischemic white matter changes. 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
[2018-07-16 16:27] LABS: ALT (SGPT) 13 U/L (8-55); AST (SGOT) 16 U/L (5-34); Albumin 3.6 g/dL (3.4-4.8); Alkaline Phosphatase 44 U/L (40-150); Anion Gap 17 mmol/L (10-20); BUN (Urea Nitrogen) 54 mg/dL (9.8-20.1); Bilirubin, Total 0.4 mg/dL (0.2-1.2); CK (CPK) 69 U/L (29-168); Calc. Creatinine Clearance 0 mL/min (70-130); Calcium 8.5 mg/dL (7.8-10.44); Carbon Dioxide 17 mmol/L (23-31); Chloride 96 mmol/L (98-107); Estimated GFR-MDRD 22; Globulin 2.5 g/dL (2.4-3.5); Magnesium 1.7 mg/dL (1.6-2.6); Potassium 4.9 mmol/L (3.5-5.1); Protein, Total 6.1 g/dL (6.0-8.3); Sodium 125 mmol/L (136-145)
[2018-07-16 16:32] LABS: Glucose 595 mg/dL (80-115)
[2018-07-16] MEDS ORDERED: Insulin Regular 300 UNITS/3 ML VIAL ONE (17:02)
[2018-07-16 17:28] LABS: Bilirubin Negative (Negative); Blood, Urine Large (Negative); Clarity CLOUDY (Clear); Glucose, Urine (Dipstick) >=1000 mg/dL (Negative); Leukocyte Moderate (Negative); Nitrite Negative (Negative); Protein, Urine (Dipstick) Negative (Neg-Trace); Specific Gravity, Urine 1.027 (1.002-1.036); Urobilinogen 0.2 mg/dL (0.2-1.0); pH, Urine 5.5 (5.0-9.0)
[2018-07-16 17:29] LABS: Bacteria/HPF 1+ HPF (None Seen); Hyaline Casts/LPF 0-3 HYALINE CAST LPF (0-3 Hyaline); Pathc Cast-AUWi Flag 0.95 (0-2.49); Squamous Epithelial 0-3 HPF (0-3)
[2018-07-16] MEDS ORDERED: Dextrose 50% Abboject 50 ML SYRINGE SLOW IVP PRN (18:02)
[2018-07-16] MEDS ORDERED: Dextrose 5% in Water 1,000 ML IV PRN (18:08)
[2018-07-16] MEDS ORDERED: Insulin Regular 300 UNITS/3 ML VIAL SC PRN (18:08)
[2018-07-16] MEDS ORDERED: Aspirin 81 mg Enteric Coated Tablet PO SCH (19:00)
[2018-07-16 19:20] VITALS: BMI 38.7
--- NOTE | 2018-07-16 19:49 | HP ---
PRIMARY CARE PROVIDER: Dr. Salazar. CHIEF COMPLAINT: Fall. HISTORY OF PRESENT ILLNESS: This is a 67-year-old female with multiple medical problems including diabetes mellitus, bipolar disorder, dyslipidemia, anxiety and depression, restless legs, rheumatoid arthritis, gastric ulcers, hypertension, coronary artery disease with history of stents, and hypothyroidism, who presents to the emergency room after a fall. The patient reports that she was sitting on the commode, and she went to get up and she slid. She denies any loss of consciousness or head trauma. She does report blood sugars that normally run 250. Today, her blood sugar was greater than 600 when checked by her daughter. The patient does report that she has been urinating a lot. History from the patient's daughter is that over the past few days, the patient has had high blood sugars. The daughter noted some slurred speech while talking to her on the phone. Her daughter was unable to reach their parents today and went to check on them and found both parents have fallen. She checked her mom's blood sugar, it was greater than 600 and gave her 40 units of fast-acting insulin. She waited about 30 minutes, rechecked it, it was still greater than 600, and EMS was called. The patient was brought to the emergency room, and blood sugars are high in addition to an acute kidney injury. She has received 1 L of normal saline, 10 units of regular insulin, and hospitalist called for admission. ALLERGIES: LISPRO ON THE CHART, WHICH CAUSED VOMITING. CURRENT MEDICATIONS: Reconciled with the list provided by one of the patient's daughters; 1. Anafranil 50 mg at bedtime. 2. Atorvastatin 40 mg at bedtime. 3. Cymbalta 60 mg two tablets at bedtime. 4. Aspirin 81 mg daily. 5. Estradiol 1 mg daily. 6. Gabapentin 300 mg t.i.d. 7. Glucophage 500 mg t.i.d. 8. Imdur 60 mg daily. 9. Lantus 80 units in the morning and 90 units at night. 10. Lovaza 1 g tablets 2 tablets b.i.d. 11. Victoza 1.8 mg injected daily. 12. Risperdal 1 mg at bedtime. 13. Levothyroxine 200 mcg daily. 14. Cyclobenzaprine 10 mg at bedtime. 15. Folic acid 1 mg daily. 16. B12 injections weekly. 17. Carafate 1 g four times daily. 18. Magnesium 500 mg daily. 19. Vitamin D unknown dose. 20. Metoprolol tartrate 25 mg b.i.d. 21. Pantoprazole 40 mg b.i.d. 22. Oxybutynin 10 mg at bedtime. 23. Ropinirole 1 mg at bedtime. 24. Tricor 145 mg at bedtime. 25. Xanax 0.5 mg t.i.d. 26. Losartan 100 mg daily. 27. Abilify 20 mg daily. 28. NovoLog sliding scale ranges from 5 to 20 units with meals. PAST MEDICAL HISTORY: 1. Coronary artery disease with history of stents. 2. Hypertension. 3. Dyslipidemia. 4. Diabetes mellitus type 2, on insulin. 5. Hypothyroidism. 6. Restless legs. 7. Rheumatoid arthritis. 8. Gastric ulcers. 9. Mood disorder including bipolar, anxiety, depression - unknown control PAST SURGICAL HISTORY: 1. Cardiac stents. 2. Cholecystectomy. 3. Hysterectomy. 4. Tonsillectomy. SOCIAL HISTORY: The patient lives with her , denies alcohol or tobacco. Her daughter, Skye, is her surrogate decision maker. Of note, the patient's compliance with medication has been questionable, as the daughters have arrange for pill packs, and on arrival today, they found pills in different places at house as well as insulin that has not been used. FAMILY HISTORY: Significant for lung cancer in her father at age 72 and heart disease and diabetes in her mother, who passed at 74. REVIEW OF SYSTEMS: Negative for fevers, chills, chest pain, shortness of breath , abdominal pain, or diarrhea. Positive as noted above. All remaining review of systems are reviewed and negative. PHYSICAL EXAMINATION: VITAL SIGNS: Blood pressure 101/53, pulse 82, respirations 17, sats 96% on room air, and temperature is 98.4. GENERAL: She is awake, alert, responsive, in no apparent distress. HEENT: Her pupils are equal and round. No scleral icterus. Oral mucosa is pink and markedly dry. NECK: Supple, nontender. LYMPHATICS: No palpable cervical or supraclavicular lymphadenopathy. LUNGS: Clear to auscultation bilateral. HEART: Normal S1 and S2. Regular rate and rhythm. No audible murmurs. ABDOMEN: Soft with present bowel sounds. Nontender, nondistended. EXTREMITIES: No clubbing, cyanosis, or edema. SKIN: No visible rashes. NEURO: No focal deficits. PSYCH: The patient appears euthymic. VASCULAR: 2+ dorsalis pedis pulses. LABORATORY DATA: Labs reviewed. CBC; 4.7, 10.6, 30.5, 93, on review prior hemoglobins have ranged from normal all the way into the 6.7 range and platelets have been chronically low. Renal panel; 125, 4.9, 96, 17, 54, 2.23, 595. LFTs are normal. Troponin negative. Lipase 38. Tox screen; beta-hydroxybutyrate 0.13. EKG, personally reviewed, sinus rhythm, normal axis. No ST changes. Abnormal R-wave progression. Brain CT performed today. No acute intracranial findings, involutional changes and chronic ischemic white matter changes, and small old infarcts in the left corpus striatum. Chest x-ray personally reviewed. No acute pulmonary findings. IMPRESSION: 1. Acute kidney injury secondary to dehydration. 2. Diabetes mellitus, uncontrolled with markedly elevated blood sugars, contributing to above. 3. Slurred speech of unknown etiology, questionable transient ischemic attack. 4. Mood disorder including bipolar, anxiety, depression, of unknown control, likely contributing to above. 5. Anemia, chronic, appears stable. 6. Thrombocytopenia, chronic, stable. 7. Coronary artery disease with history of stent, asymptomatic. 8. Dyslipidemia. 9. Restless legs. 10. Hypertension. 11. Hypothyroidism. 12. Rheumatoid arthritis. 13. History of gastric ulcers. PLAN: 1. Admission to the hospital. 2. Telemetry monitoring, IV fluid hydration, managing blood sugars with both long and short-acting insulin. As we do not have NovoLog the patient uses at home, we will use regular insulin with meals and bedtime. 3. Continuing selective home medications that can be renally dosed, we will hold the ones that are not appropriate for her current renal function. 4. We will order an MRI of the brain to evaluate for any acute infarcts. 5. Monitor renal function with IV fluid hydration. We will obtain renal ultrasound and nephrology consult. 6. Monitor her blood pressures, hold her OLIVIA inhibitor. 7. Continuing her beta-cortney, low-dose aspirin, and medications for dyslipidemia. 8. When ready for discharge, the patient will need case management assistance with consideration for home health. 9. Stroke team evaluation. 10. DVT prophylaxis, SCDs due to thrombocytopenia. 11. GI prophylaxis, the patient is on both PPI as well as Carafate. We will continue this. 12. Code status is full. Surrogate decision maker is her daughter, Skye. 13. The patient is at high risk given age comorbidities and current presentation. 14. Reviewed the plan of care with the patient and her daughter. No questions or further needs at the end of evaluation. Job ID: [id number] [facility]
[2018-07-16 19:56] LABS: Troponin I Less than 0.010 ng/mL (< 0.028)
[2018-07-16] MEDS: Insulin Regular 300 UNITS/3 ML VIAL SC PRN (20:57)
[2018-07-16] MEDS: Gabapentin 300 MG CAP PO SCH (21:00)
[2018-07-16] MEDS: ALPRAZolam 0.5 MG TAB PO SCH (21:00)
[2018-07-16] MEDS ORDERED: Insulin Glargine 40 UNITS in Pre-Filled Syringe 1 EACH SC SCH (21:00)
[2018-07-16] MEDS: risperiDONE 1 MG TAB PO SCH (21:00)
[2018-07-16] MEDS: Atorvastatin Calcium 40 MG TAB PO SCH (21:00)
[2018-07-16] MEDS: Metoprolol Tartrate 25 MG TAB PO SCH (21:03)
[2018-07-16] MEDS: Sodium Chloride 0.9% 1,000 ML IV SCH (21:05)
[2018-07-16] MEDS: Sucralfate 1 GM TAB PO SCH (21:09)
[2018-07-16 21:37] LABS: Anion Gap 13 mmol/L (10-20); BUN (Urea Nitrogen) 47 mg/dL (9.8-20.1); Calc. Creatinine Clearance 46 mL/min (70-130); Calcium 8.6 mg/dL (7.8-10.44); Carbon Dioxide 20 mmol/L (23-31); Chloride 100 mmol/L (98-107); Estimated GFR-MDRD 28; Glucose 485 mg/dL (80-115); Potassium 4.4 mmol/L (3.5-5.1); Sodium 129 mmol/L (136-145)
--- NOTE | 2018-07-16 21:39 | CON ---
DATE OF CONSULTATION: REASON FOR CONSULTATION: Hyperkalemia. HISTORY OF PRESENTING ILLNESS: This is a very pleasant 67-year-old female who was admitted for fall. The patient's baseline creatinine was 1.05 in February, which has increased to 2.2, so I was consulted. Her potassium also increased to 5.2 and her glucose is 595. The patient denies no headache, numbness, tingling, or weakness. Denies nausea or chest pain. PAST MEDICAL HISTORY: Significant for coronary disease, hypertension, diabetes mellitus, restless leg, rheumatoid arthritis, gastric ulcers, mood disorder, cardiac stent, cholecystectomy, hysterectomy and tonsillectomy. SOCIAL HISTORY: No tobacco, alcohol, or drug use. FAMILY HISTORY: Negative for ESRD. HOME MEDICATIONS: List reviewed. REVIEW OF SYSTEMS: A 15-point review of systems was performed and negative except for positives noted above. GENERAL: HEAD: NECK: No swelling or lumps. NOSE: No epistaxis or discharge. EYES: No diplopia or pain. RESPIRATORY: CARDIOVASCULAR: GASTROINTESTINAL: /BLOCK SORTER: MUSCULOSKELETAL: No joint pain. NEUROPSYCHIATIC SYSTEMS: No suicidal ideation. No ideation. SKIN: Denies any rash or ulcer. CONSTITUTIONAL: No fever or chills. PHYSICAL EXAMINATION: GENERAL: The patient is awake and alert. VITAL SIGNS: Afebrile, pulse 82, breathing 16, blood pressure was 101/52. GENERAL APPEARANCE AND MENTAL STATUS: Fair. HEAD/NECK: Normocephalic. Atraumatic. EYES: EOMI. No deformity. EARS: Clear. No ulcers. NOSE: Intact. No lesions. MOUTH: Clear. No discharge. THROAT: Clear. No exudate. LUNGS: Clear. No crackles. CARDIAC: S1, S2. No rub. ABDOMEN: Benign. Bowel sounds positive. GENITALIA/RECTUM: Velazquez absent. BACK/EXTREMITIES: Edema 0+. NEUROLOGICAL: Alert and motor intact. SKIN: LYMPHATICS: LABS: Reviewed. ASSESSMENT AND PLAN: 1. Acute kidney injury, chronic kidney disease, most likely due to acute tubular necrosis due to dehydration. Continue normal saline. 2. Hypertension, stable. 3. Anemia, stable. 4. Medication based on GFR appropriate. 5. Hyperkalemia due to high glucose. We recommend aggressive glucose control. No indication for dialysis at this time. Job ID: [id number]
[2018-07-16] MEDS ORDERED: Insulin Regular 300 UNITS/3 ML VIAL SC SCH (22:45)
[2018-07-16 23:00] LABS: Troponin I Less than 0.010 ng/mL (< 0.028)
--- NOTE | 2018-07-17 00:19 | ULT ---
ULTRASOUND RENAL: DATE: 07/16/2018 HISTORY: Acute kidney injury in 67-year-old female FINDINGS: Right kidney: 10 x 5 x 5.5 cm. Left kidney: 11 x 5 x 5 cm. Renal parenchymal thickness and echogenicity normal. No hydronephrosis. No moderate sized or large renal cyst or solid mass. Bilateral ureteral jets demonstrated in bladder. Unremarkable bladder. IMPRESSION: Normal
[2018-07-17] MEDS: Sodium Chloride 0.9% 1,000 ML IV SCH ×4 (03:19→13:49)
[2018-07-17] MEDS: Levothyroxine Sodium 100 MCG TAB PO SCH (05:33)
[2018-07-17 05:37] LABS: #Eosinphils 0.2 thou/uL (0.0-0.7); #Lymphocytes 1.1 thou/uL (1.20-3.40); #Monocytes 0.3 thou/uL (0.11-0.59); #Neutrophils 1.2 thou/uL (1.40-6.50); %Basophils 0.8 % (0.0-1.0); %Eosinophils 8.3 % (0.0-10.0); %Monocytes 9.8 % (0.0-10.0); %Neutrophils 42.2 % (42.0-75.0); Hemoglobin 10.3 g/dL (12.0-16.0); Mean Corpuscular HGB CONC 34.2 g/dL (32.0-36.0); Mean Corpuscular Hemoglobin 28.8 pg (27.0-31.0); Mean Corpuscular Volume 84.2 fL (78.0-98.0); Mean Platelet Volume 9.5 fL (7.4-10.4); Platelet Count 88 thou/uL (130-400); RBC Distribution Width 12.7 % (11.5-14.5); Red Blood Cell (RBC) Count 3.58 mill/uL (4.20-5.40); White Blood Cell (WBC) Count 2.8 thou/uL (4.8-10.8)
[2018-07-17 05:43] LABS: Anion Gap 12 mmol/L (10-20); BUN (Urea Nitrogen) 37 mg/dL (9.8-20.1); Calc. Creatinine Clearance 59 mL/min (70-130); Calcium 8.8 mg/dL (7.8-10.44); Carbon Dioxide 22 mmol/L (23-31); Cardiac Risk 7.1 (Less than 4.5); Chloride 103 mmol/L (98-107); Cholesterol 141 mg/dl (< 200 Desired); Estimated GFR-MDRD 37; Glucose 353 mg/dL (80-115); HDL Cholesterol 20 mg/dL (>60 Neg Risk); Potassium 4.2 mmol/L (3.5-5.1); Sodium 133 mmol/L (136-145); Triglycerides 496 mg/dL (Less than 150)
[2018-07-17] MEDS: Insulin Regular 300 UNITS/3 ML VIAL SC PRN ×3 (05:48→21:09)
[2018-07-17] MEDS ORDERED: Insulin Glargine 40 UNITS in Pre-Filled Syringe 1 EACH SC SCH (09:00)
[2018-07-17] MEDS: Sucralfate 1 GM TAB PO SCH ×4 (09:20→21:10)
[2018-07-17] MEDS: Gabapentin 300 MG CAP PO SCH ×2 (09:20→21:10)
[2018-07-17] MEDS: Fenofibrate Nanocrystallized 145 MG TAB PO SCH (09:20)
[2018-07-17] MEDS: Aspirin 81 mg Enteric Coated Tablet PO SCH (09:20)
[2018-07-17] MEDS: Metoprolol Tartrate 25 MG TAB PO SCH ×2 (09:20→21:10)
[2018-07-17] MEDS: ALPRAZolam 0.5 MG TAB PO SCH ×3 (09:20→21:10)
[2018-07-17] MEDS: Aripiprazole 10 MG TAB PO SCH (09:20)
--- NOTE | 2018-07-17 11:06 | MRI ---
MRI BRAIN WITHOUT CONTRAST: Date: 07/17/18 Multiplanar, multisequential imaging of brain obtained. INDICATION: TIA. Slurred speech. Correlation made to CT head dated 07/16/18 and MRI brain dated 03/06/18. FINDINGS: Moderately severe chronic ischemic white matter changes are again seen, similar to the prior MRI. 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 No restricted diffusion. No evidence of acute infarct. No mass or edema. The intracranial internal carotid arteries and proximal cerebral arteries are patent. Basilar artery is patent. No significant change from the MRI of 03/06/18. IMPRESSION: Moderately severe chronic ischemic white matter changes again noted. 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 No acute process. POS: [facility]
[2018-07-17] MEDS ORDERED: Acetaminophen 500 MG TAB PO PRN (12:31)
[2018-07-17] MEDS ORDERED: Insulin Glargine 20 UNITS in Pre-Filled Syringe 1 EACH SC SCH (12:45)
--- NOTE | 2018-07-17 13:07 | PDOC.PN ---
- Subjective Encounter Start Date: 07/17/18 (f/u CHAVO) Encounter Start Time: 13:05 Subjective: Denies any cp/sob/n/v/abd pain. c/o pain in back of her -: head - since fall yesterday and on tailbone - Objective Resuscitation Status - Order Detail: 07/16/18 18:02 Resuscitation Status Routine Resuscitation Status: FULL: Full Resuscitation Vital Signs & Weight: Vital Signs (12 hours) Temp Pulse Pulse Pulse Resp BP BP 07/17/18 12:13 80 82 125/67 143/66 H 07/17/18 12:00 97.6 F 80 18 07/17/18 08:05 86 84 142/74 H 111/61 07/17/18 07:57 97.6 F 88 18 07/17/18 07:40 07/17/18 05:30 97.4 F L 85 18 BP BP Pulse Ox 07/17/18 12:13 07/17/18 12:00 125/67 96 07/17/18 08:05 07/17/18 07:57 142/74 H 95 07/17/18 07:40 95 07/17/18 05:30 111/52 L 96 Weight Weight 218 lb 12.8 oz I&O: 07/16/18 07/17/18 07/18/18 06:59 06:59 06:59 Intake Total 1740 300 Output Total 850 Balance 890 300 Result Diagrams: 07/17/18 04:43 07/17/18 04:43 Additional Labs: Accuchecks 07/17/18 07/17/18 07/16/18 10:48 00:41 22:22 POC Glucose 426 H 382 H 447 H 07/16/18 07/16/18 20:50 18:04 POC Glucose 510 H 480 H EKG Reviewed by me: Yes (tele- sinus 80-90's) Phys Exam - Physical Examination Constitutional: NAD ttp focal area on occiput with mild edema c/w trauma Respiratory: no wheezing, no rales, no rhonchi, clear to auscultation bilateral Cardiovascular: RRR, no significant murmur Gastrointestinal: soft, non-tender, no distention, positive bowel sounds Musculoskeletal: no edema, pulses present Neurological: non-focal Psychiatric: normal affect, A&O x 3 Deviation from normal: speech normal Dx/Plan (1) Diabetes mellitus Code(s): E11.9 - TYPE 2 DIABETES MELLITUS WITHOUT COMPLICATIONS Status: Acute Qualifiers: Diabetes mellitus type: type 2 Diabetes mellitus snf insulin use: with middle or intermediate school principal use Diabetes mellitus complication status: with kidney complications (2) CHAVO (acute kidney injury) Code(s): N17.9 - ACUTE KIDNEY FAILURE, UNSPECIFIED Status: Acute (3) Anemia Code(s): D64.9 - ANEMIA, UNSPECIFIED Status: Chronic Qualifiers: Anemia type: unspecified type Qualified Code(s): D64.9 - Anemia, unspecified (4) Slurred speech Code(s): R47.81 - SLURRED SPEECH Status: Resolved (5) Dyslipidemia Code(s): E78.5 - HYPERLIPIDEMIA, UNSPECIFIED Status: Chronic (6) Pancytopenia Code(s): D61.818 - OTHER PANCYTOPENIA Status: Chronic (7) Hypertension Code(s): I10 - ESSENTIAL (PRIMARY) HYPERTENSION Status: Chronic (8) Hypothyroidism Code(s): E03.9 - HYPOTHYROIDISM, UNSPECIFIED Status: Chronic - Plan * DM uncontrolled - increase lantus and change to aggressive regular insulin SS * HTN - normotensive, monitor and add back imdur as bp's increase. Hold losartan for a few weeks due to CHAVO * CHAVO improved, normal US, appreciate Nephro following * Mood - will check and add back meds as renal function allows * Dyslipidemia - cont statin and tricor * pancytopenia - check iron studies * head pain secondary to trauma - localized, no crepitus - tylenol prn * hx of ulcers - cont meds * CAD - asx - continue beta cortney, statin, aspirin * * dvt prophy - scd's * gi prophy - on ppi - takes at home * code status full * * pt remains at high risk in current condition * reviewed plan of care wiht patient, no questions or further needs at end of eval.
[2018-07-17] MEDS ORDERED: Insulin Glargine 60 UNITS in Pre-Filled Syringe 1 EACH SC SCH (21:00)
[2018-07-17] MEDS ORDERED: CLOMIPRAMINE HCL 50 MG PO SCH (21:00)
--- NOTE | 2018-07-17 21:05 | PDOC.EVN ---
Event Note - Event Note Event Note: reviewed medications and renal function today and added back meds that can either be renally dosed or that are considered safe with her renal function.
[2018-07-17] MEDS: Insulin Glargine 80 UNITS in Pre-Filled Syringe 1 EACH SC SCH (21:08)
[2018-07-17] MEDS: risperiDONE 1 MG TAB PO SCH (21:10)
[2018-07-17] MEDS: rOPINIRole HCl 1 MG TAB PO SCH (21:10)
[2018-07-17] MEDS: Atorvastatin Calcium 40 MG TAB PO SCH (21:10)
--- NOTE | 2018-07-17 22:02 | PRG ---
DATE OF SERVICE: 07/17/2018 OBJECTIVE: GENERAL: This is a well-built female, in no apparent distress. VITAL SIGNS: Temperature LABORATORY DATA: Potassium ASSESSMENT AND PLAN: 1. Acute kidney injury, much better. 2. Hypertension. 3. Anemia. 4. Hyperlipidemia. Overall labs seems to be stable. Avoid nephrotoxins. Job ID: [id number]
[2018-07-18] MEDS ORDERED: Clopidogrel Bisulfate 75 MG TAB ONE (02:15)
[2018-07-18 05:46] LABS: #Eosinphils 0.2 thou/uL (0.0-0.7); #Lymphocytes 1.2 thou/uL (1.20-3.40); #Monocytes 0.2 thou/uL (0.11-0.59); %Basophils 0.1 % (0.0-1.0); %Eosinophils 7.9 % (0.0-10.0); %Lymphocytes 43.9 % (21.0-51.0); %Neutrophils 39.1 % (42.0-75.0); Hemoglobin 10.3 g/dL (12.0-16.0); Mean Corpuscular HGB CONC 34.2 g/dL (32.0-36.0); Mean Corpuscular Hemoglobin 28.5 pg (27.0-31.0); Mean Corpuscular Volume 83.6 fL (78.0-98.0); Mean Platelet Volume 9.5 fL (7.4-10.4); Platelet Count 67 thou/uL (130-400); RBC Distribution Width 12.5 % (11.5-14.5); White Blood Cell (WBC) Count 2.6 thou/uL (4.8-10.8)
[2018-07-18 05:51] LABS: Anion Gap 12 mmol/L (10-20); BUN (Urea Nitrogen) 25 mg/dL (9.8-20.1); Calc. Creatinine Clearance 74 mL/min (70-130); Calcium 9.1 mg/dL (7.8-10.44); Carbon Dioxide 21 mmol/L (23-31); Chloride 104 mmol/L (98-107); Estimated GFR-MDRD 48; Glucose 279 mg/dL (80-115); Iron 45 ug/dL (50-170); Iron Binding Capacity, Total 354 mcg/dL (265-497); Potassium 3.9 mmol/L (3.5-5.1); Sodium 133 mmol/L (136-145)
[2018-07-18] MEDS: Levothyroxine Sodium 100 MCG TAB PO SCH (05:51)
[2018-07-18] MEDS: Insulin Regular 300 UNITS/3 ML VIAL SC PRN ×3 (05:52→18:20)
[2018-07-18] MEDS: DULoxetine 60 MG CAP PO SCH (08:47)
[2018-07-18] MEDS: Fenofibrate Nanocrystallized 145 MG TAB PO SCH (08:47)
[2018-07-18] MEDS: Metoprolol Tartrate 25 MG TAB PO SCH ×2 (08:47→21:07)
[2018-07-18] MEDS: Aripiprazole 10 MG TAB PO SCH (08:47)
[2018-07-18] MEDS: Aspirin 81 mg Enteric Coated Tablet PO SCH (08:47)
[2018-07-18] MEDS: Insulin Glargine 80 UNITS in Pre-Filled Syringe 1 EACH SC SCH (08:47)
[2018-07-18] MEDS: Gabapentin 300 MG CAP PO SCH ×2 (08:47→21:07)
[2018-07-18] MEDS: Sucralfate 1 GM TAB PO SCH ×4 (08:48→21:07)
[2018-07-18] MEDS: ALPRAZolam 0.5 MG TAB PO SCH ×3 (08:48→21:07)
[2018-07-18] MEDS ORDERED: LIRAGLUTIDE 1.8 MG SQ SCH (09:00)
--- NOTE | 2018-07-18 11:55 | PQF ---
JED [place] [id number] [facility] [id number] CLINICAL DOCUMENTATION IMPROVEMENT CLARIFICATION FORM: ICD-10 Updated PLEASE DO AN ADDENDUM TO THE PROGRESS NOTE WITH ANY DOCUMENTATION UPDATES OR ADDITIONS AND CARRY THROUGH TO DC SUMMARY. THANK YOU. DATE: 07/18/2018 ATTN: DR. Jason CHAIREZ Please exercise your independent, professional judgment in responding to the clarification form. Clinical indicators are provided on the bottom of this form for your review. Acute on Chronic Renal Failure please specify Stage of CKD ___3 (see below) [ ] Other diagnosis [ ] Unable to determine In addition, please specify: Present on Admission (POA): [ x ] Yes [ ] No [ ] Unable to determine National Kidney Foundation Guidelines for CKD Staging Stage I Kidney damage with normal or increased GFRGFR > 90 Stage IIKidney damage with mildly decreased GFRGFR 60-89 Stage III Kidney damage with moderately decreased GFRGFR 30-59 Stage IVKidney damage with severely decreased GFRGFR 16-29 Stage VKidney failureGFR<15 ESRDEnd Stage Renal DiseaseOn dialysis Acute Renal Failure/Acute Kidney Failure defined as: Increases in SCr by (>) 0.3 mg/dl within 48 hours OR- Increases in SCr by (>) 1.5 times baseline, known or presumed to have occurred within the prior 7 days OR- Urine volume < 0.5 ml/kg/hour for 6 hours (KDIGO supplement 2012 for RIFLE/ANA criteria) For continuity of documentation, please document condition throughout progress notes and discharge summary. Thank You. CLINICAL INDICATORS - SIGNS / SYMPTOMS / LABS 07/16 CONSULT (PASCUAL) ASSESSMENT AND PLAN: ACUTE KIDNEY INJURY, CHRONIC KIDNEY DISEASE, MOST LIKELY DUE TO ACUTE TUBULAR NECROSIS DUE TO DEHYDRATION LABS: BUN (07/16) 54 ,47 (07/17) 37 () 25 GFR (07/16) 22 ,28 (07/17) 37 (07/18) 48 CREATININE (07/16) 2.23, 1.81 (07/17) 1.42 (07/18 ) 1.13 RISK FACTORS Dehydration (LIZETH) CONSULT HX DM (CONTRERAS) H &P ATN (LIZETH) CONSULT TREATMENTS: NEPHROLOGY CONSULT SERIAL LABS THANK YOU! SERENE (This form is maintained as a part of the permanent medical record) 2014 [employer]. All Rights Reserved [email or web address] [phone] MTDD
[2018-07-18] MEDS: Sodium Chloride 0.9% 1,000 ML IV SCH (12:36)
--- NOTE | 2018-07-18 13:57 | PDOC.PN ---
- Subjective Encounter Start Date: 07/18/18 (f/u CHAVO) Encounter Start Time: 14:44 Subjective: Pt c/o pain in back of head and sacrum, rates it 6/10 in severity -: denies any n/v/abd pain. Is interested in SNF - Objective Resuscitation Status - Order Detail: 07/16/18 18:02 Resuscitation Status Routine Resuscitation Status: FULL: Full Resuscitation Vital Signs & Weight: Vital Signs (12 hours) Temp Pulse Pulse Pulse Resp BP BP 07/18/18 11:37 97.8 F 59 L 16 07/18/18 10:12 60 67 99/50 L 116/69 07/18/18 08:00 07/18/18 07:49 97.6 F 69 18 07/18/18 04:00 97.6 F 63 16 BP Pulse Ox Pulse Ox Pulse Ox 07/18/18 11:37 118/56 L 95 07/18/18 10:12 96 96 07/18/18 08:00 93 L 07/18/18 07:49 124/48 L 93 L 07/18/18 04:00 115/61 92 L Weight Weight 218 lb 12.8 oz I&O: 07/17/18 07/18/18 07/19/18 06:59 06:59 06:59 Intake Total 1740 900 Output Total 850 Balance 890 900 Result Diagrams: 07/18/18 04:49 07/18/18 04:49 Additional Labs: Accuchecks 07/18/18 07/18/18 07/18/18 10:28 05:45 01:10 POC Glucose 387 H 286 H 308 H 07/17/18 07/17/18 07/16/18 20:34 16:45 15:11 POC Glucose 342 H 410 H Greater than 550 H* EKG Reviewed by me: Yes (tele - sinus 60-70's) Phys Exam - Physical Examination Constitutional: NAD Respiratory: no wheezing, no rales, no rhonchi, clear to auscultation bilateral Cardiovascular: RRR, no significant murmur Gastrointestinal: soft, non-tender, no distention, positive bowel sounds Musculoskeletal: no edema Neurological: non-focal, moves all 4 limbs Psychiatric: normal affect Skin: no rash Deviation from normal: ttp in same location of occiput and sacrum - no palp abnormality Dx/Plan (1) Diabetes mellitus Code(s): E11.9 - TYPE 2 DIABETES MELLITUS WITHOUT COMPLICATIONS Status: Acute Qualifiers: Diabetes mellitus type: type 2 Diabetes mellitus terminal block assembler insulin use: with terminal block assembler use Diabetes mellitus complication status: with kidney complications (2) CHAVO (acute kidney injury) Code(s): N17.9 - ACUTE KIDNEY FAILURE, UNSPECIFIED Status: Resolved Comment : in the context of CKD stage 3 (3) Anemia Code(s): D64.9 - ANEMIA, UNSPECIFIED Status: Chronic Qualifiers: Anemia type: unspecified type Qualified Code(s): D64.9 - Anemia, unspecified (4) Slurred speech Code(s): R47.81 - SLURRED SPEECH Status: Resolved (5) Dyslipidemia Code(s): E78.5 - HYPERLIPIDEMIA, UNSPECIFIED Status: Chronic (6) Pancytopenia Code(s): D61.818 - OTHER PANCYTOPENIA Status: Chronic (7) Hypertension Code(s): I10 - ESSENTIAL (PRIMARY) HYPERTENSION Status: Chronic (8) Hypothyroidism Code(s): E03.9 - HYPOTHYROIDISM, UNSPECIFIED Status: Chronic - Plan * DM uncontrolled - lantus increased yesterday, on aggressive sliding scale. Increase night dose to 90 per home routine * Add scheduled regular insulin to correction scale * victoza started today * hold home metformin * * HTN - normotensive, monitor and add back imdur as bp's increase. Hold losartan for a few weeks due to CHAVO * * CHAVO likely resolved based on chart review - with underlying CKD stage 3 * hold OLIVIA-I, d/c IVF, continue monitoring, and optimize blood sugar * Mood - meds reconciled and added back * * Dyslipidemia - cont statin and tricor * * pancytopenia - heme consult * * head pain secondary to trauma - localized, no crepitus - not relieved with tylenol - add low dose tramadol for prn use * hx of ulcers - cont meds * CAD - asx - continue beta cortney, statin, aspirin * * dvt prophy - scd's * gi prophy - on ppi - takes at home * code status full * * pt remains at high risk in current condition * anticipate pt would benefit from SNF as transition to home - she is agreeable.
[2018-07-18] MEDS ORDERED: traMADol HCl 50 MG TAB PO PRN (14:43)
[2018-07-18] MEDS ORDERED: Sulfameth/Trimethoprim DS 800-160mg TAB PO SCH (14:45)
--- NOTE | 2018-07-18 15:10 | PRG ---
DATE OF SERVICE: 07/18/2018 SUBJECTIVE: Patient was seen and examined at bedside and overnight events noted. Patient denies any shortness of breath or chest pain or palpitation. No history of nausea or vomiting or diarrhea or fever or chills or cramps. OBJECTIVE: GENERAL: This is an obese female, in no apparent distress. VITAL SIGNS: Temperature 97.8, heart rate 59, respiratory rate 16, and blood pressure 116/69 HEENT: Atraumatic, normocephalic. Oral mucosa is moist. NECK: Supple. CARDIOVASCULAR: S1, S2 heard. Rate and rhythm regular. RESPIRATORY: Clear to auscultation. GASTROINTESTINAL: Abdomen is soft. MUSCULOSKELETAL: No tenderness. No edema. DERMATOLOGIC: No skin rash. NEUROLOGIC: Alert and awake and oriented X3. No focal neurologic deficits. Moving all the extremities. PSYCHIATRIC: Mood and affect normal. LABORATORY DATA: Potassium 3.9, BUN is 25, and creatinine is 1.1. ASSESSMENT AND PLAN: 1. Acute kidney injury, much better. 2. Edema, controlled. 3. Hypertension. 4. Anemia. Renal function is better. I will sign off. Please call back with any questions. Job ID: [id number]
[2018-07-18] MEDS ORDERED: Insulin Regular 300 UNITS/3 ML VIAL SC SCH (16:30)
--- NOTE | 2018-07-18 16:35 | CON ---
DATE OF CONSULTATION: REASON FOR CONSULT: Pancytopenia. HISTORY OF PRESENT ILLNESS: Ms. Arce is a pleasant 67-year-old female with multiple chronic medical problems who presented to the emergency room after a fall. She was in the bathroom and lost consciousness. She awoke on the floor. She does not remember falling. Her blood sugar was greater than 600. She was having some slurred speech, so she was admitted for further workup. Her CBC on admission showed a white count of 2.8, hemoglobin of 10.3, and platelet count of 88,000. The patient has a known history of intermittent pancytopenia. She was evaluated for this in our clinic back in 2014. At that time, she had a duodenal ulcer and was iron deficient. Iron deficiency was fixed and her counts improved to normal value. She was last seen in our clinic in 2015 with a white count of 4.6, hemoglobin 10.9, and platelet count was 165,000. Over the last several years, her pancytopenia has worsened. We were asked to see the patient for our recommendations. The patient denies any headache, blurred vision, chest pain, or back pain at this time. Her primary complaint is fatigue, particularly over the past several months. No bleeding or bruising. No night sweats. No frequent fevers. PAST MEDICAL HISTORY: 1. Chronic thrombocytopenia. 2. Chronic anemia. 3. Intermittent leukopenia. 4. Coronary artery disease. 5. Hypertension. 6. Dyslipidemia. 7. Diabetes mellitus, type 2. 8. Hypothyroidism. 9. Restless legs syndrome. 10. Rheumatoid arthritis. 11. History of gastric ulcer. 12. Bipolar disease. 13. Anxiety and depression. PAST SURGICAL HISTORY: 1. Cardiac stents. 2. Cholecystectomy. 3. Hysterectomy. 4. Tonsillectomy. HOME MEDICATIONS: 1. Xanax. 2. Abilify. 3. Aspirin. 4. Atorvastatin. 5. Anafranil. 6. Flexeril. 7. Cymbalta. 8. Estrace. 9. TriCor. 10. Folvite. 11. Neurontin. 12. Insulin. 13. Imdur. 14. Synthroid. 15. Victoza. 16. Cozaar. 17. Magnesium. 18. Glucophage. 19. Lopressor. 20. Lovaza. 21. Oxybutynin. 22. Protonix. 23. Risperdal. 24. Ropinirole. 25. Carafate. ALLERGIES: INCLUDE INSULIN LISPRO. FAMILY HISTORY: Noncontributory. SOCIAL HISTORY: , lives with her . No alcohol, tobacco, or illicit drug use. REVIEW OF SYSTEMS: A 10-point review of systems is negative except for noted in HPI. PHYSICAL EXAMINATION: VITAL SIGNS: Temperature 97.8, pulse is 59, respiratory rate 16, blood pressure is 118/56. She is 95% on room air. GENERAL: Well-developed, well-nourished female, in no acute distress. HEENT: Normocephalic and atraumatic. Pupils are equal and reactive to light. NECK: Supple. CV: Regular rate and rhythm. RESPIRATIONS: Nonlabored. ABDOMEN: Soft. EXTREMITIES: No clubbing, cyanosis, or edema. SKIN: No rash. HEMATOLOGIC: No petechiae or purpura. NEUROLOGIC: Nonfocal. PSYCHIATRIC: She is alert, oriented, and appropriate. PERTINENT LABORATORY DATA AND X-RAYS: Current WBCs 2.6, hemoglobin 10.3, hematocrit 30.1, platelet count is 67,000. She has 39% neutrophils, 43% lymphocytes, 9% monocytes. Sodium 133, potassium 3.9, chloride 104, CO2 is 21, BUN is 25, creatinine 1.13, calcium is 9.1. Iron is 45, TIBC is 354, ferritin is 91, total bilirubin is 0.4, AST is 16, ALT is 13, alkaline phosphatase is 44. Serum total protein 6.1, albumin 3.6, globulin 2.5, lipase is 38. Urine shows 1+ bacteria. Her brain MRI showed no acute processes. ASSESSMENT: 1. Pancytopenia. 2. Polypharmacy. DISCUSSION: The patient has had intermittent pancytopenia since at least 2014. Her platelets have worsened over the last 6 months. I discussed causes of pancytopenia with the patient and daughter including bone marrow dysfunction. B12 deficiency , and medication induced. She had a B12 level drawn back in February, which was normal. I suspect that this is likely medication-induced pancytopenia. Discussed bone marrow biopsy to rule out myelodysplastic syndrome. Both daughter and the patient would like to follow up in the clinic and discuss further with Dr. Pion, so our clinic information was provided and they will see is in the outpatient setting in a couple of weeks. Thank you for the consult. We will follow along. Jay ID: [id number] MTDD
--- NOTE | 2018-07-18 17:27 | CON ---
DATE OF CONSULTATION: 07/18/2018 CONSULTING PHYSICIAN: Hospitalist Service. IMPRESSION: 1. Transient dysarthria secondary to hyperglycemia. 2. Diabetes. 3. Hyperlipidemia. 4. Hypertension. 5. Coronary artery disease. PLAN: 1. Continue aspirin and a statin that she was taking before admission. 2. Rehab transfer. HISTORY OF PRESENT ILLNESS: Ms. Arce is a 67-year-old female with the above-noted problems. She apparently was in her bathroom and slipped on the floor, landing on her buttocks. She was unable to get up without assistance. EMS was called. They thought that her speech sounded a bit slurred. There was no focal weakness associated with it. No facial droop was reported. CT scan of the brain showed moderately extensive small vessel ischemic changes. She subsequently had an MRI of the brain, which failed to reveal any acute ischemic injury. Her cholesterol ratio is 7.1. Her EKG showed a normal sinus rhythm. Her blood sugar was 600. Her symptoms have cleared up. PAST MEDICAL HISTORY: As listed above. ALLERGIES: LISINOPRIL AND INSULIN. SOCIAL HISTORY: No tobacco or alcohol use. FAMILY HISTORY: Noncontributory. REVIEW OF SYSTEMS: Ten system review of systems is otherwise negative. PHYSICAL EXAMINATION: VITAL SIGNS: Stable. She is afebrile. HEENT: Pupils equal. Conjunctivae clear. Oropharynx clear. NECK: Supple. EXTREMITIES: No cyanosis. NEUROLOGIC: She is alert and appropriate. Her speech is fluent and clear. Her cranial nerves 2 through 12 are intact. Motor exam shows equal strength. Sensation is equal to light touch. No abnormal movements were seen. Gait is not tested. SUMMARY: Elderly lady with transient hyperglycemia causing some minor neurologic changes. I do not see any evidence of any acute neurologic event. We will continue her current treatment plan. Job ID: [id number]
[2018-07-18] MEDS ORDERED: INSULIN GLARGINE SC SCH (21:00)
[2018-07-18] MEDS ORDERED: PRE FILLED SC SCH (21:00)
[2018-07-18] MEDS: risperiDONE 1 MG TAB PO SCH (21:07)
[2018-07-18] MEDS: Atorvastatin Calcium 40 MG TAB PO SCH (21:07)
[2018-07-18] MEDS: rOPINIRole HCl 1 MG TAB PO SCH (21:07)
[2018-07-18] MEDS: Sulfameth/Trimethoprim DS 800-160mg TAB PO SCH (21:07)
[2018-07-19 06:12] LABS: #Eosinphils 0.3 thou/uL (0.0-0.7); #Lymphocytes 1.3 thou/uL (1.20-3.40); #Monocytes 0.3 thou/uL (0.11-0.59); #Neutrophils 1.5 thou/uL (1.40-6.50); %Eosinophils 8.8 % (0.0-10.0); %Lymphocytes 38.3 % (21.0-51.0); %Monocytes 8.6 % (0.0-10.0); %Neutrophils 44.3 % (42.0-75.0); Hemoglobin 11.2 g/dL (12.0-16.0); Mean Corpuscular HGB CONC 33.8 g/dL (32.0-36.0); Mean Corpuscular Hemoglobin 28.3 pg (27.0-31.0); Mean Corpuscular Volume 83.7 fL (78.0-98.0); Mean Platelet Volume 9.7 fL (7.4-10.4); Platelet Count 91 thou/uL (130-400); RBC Distribution Width 12.9 % (11.5-14.5); Red Blood Cell (RBC) Count 3.95 mill/uL (4.20-5.40); White Blood Cell (WBC) Count 3.3 thou/uL (4.8-10.8)
[2018-07-19 06:23] LABS: Anion Gap 13 mmol/L (10-20); BUN (Urea Nitrogen) 21 mg/dL (9.8-20.1); Calc. Creatinine Clearance 70 mL/min (70-130); Calcium 9.1 mg/dL (7.8-10.44); Carbon Dioxide 22 mmol/L (23-31); Chloride 105 mmol/L (98-107); Estimated GFR-MDRD 45; Glucose 158 mg/dL (80-115); Potassium 3.9 mmol/L (3.5-5.1); Sodium 136 mmol/L (136-145)
[2018-07-19] MEDS: Levothyroxine Sodium 100 MCG TAB PO SCH (06:29)
[2018-07-19] MEDS: Insulin Regular 300 UNITS/3 ML VIAL SC PRN ×2 (06:29→11:33)
[2018-07-19] MEDS ORDERED: Insulin Regular 300 UNITS/3 ML VIAL SC SCH ×2 (07:30→11:30)
[2018-07-19] MEDS: Fenofibrate Nanocrystallized 145 MG TAB PO SCH (08:42)
[2018-07-19] MEDS: DULoxetine 60 MG CAP PO SCH (08:42)
[2018-07-19] MEDS: Sucralfate 1 GM TAB PO SCH ×2 (08:42→11:32)
[2018-07-19] MEDS: Aripiprazole 10 MG TAB PO SCH (08:42)
[2018-07-19] MEDS: Gabapentin 300 MG CAP PO SCH (08:42)
[2018-07-19] MEDS: ALPRAZolam 0.5 MG TAB PO SCH ×2 (08:42→14:16)
[2018-07-19] MEDS: Aspirin 81 mg Enteric Coated Tablet PO SCH (08:42)
[2018-07-19] MEDS: Sulfameth/Trimethoprim DS 800-160mg TAB PO SCH (08:43)
[2018-07-19] MEDS: Metoprolol Tartrate 25 MG TAB PO SCH (08:44)
[2018-07-19] MEDS ORDERED: Insulin Glargine 80 UNITS in Pre-Filled Syringe SC SCH (09:00)
[2018-07-19 11:32] VITALS: TEMP 97.4
[2018-07-19 11:49] VITALS: BP 115/70
--- NOTE | 2018-07-19 19:29 | DIS ---
DATE OF ADMISSION: 07/16/2018 DATE OF DISCHARGE: 07/19/2018 CONSULTANTS: Dr. Durham and Dr. Razo of Nephrology. Dr. Lloyd of Neurology and Regina Argueta of Hematology Oncology. MEDICATIONS: Medications are reconciled at discharge. Discontinued medications are: 1. Cyclobenzaprine as the patient has not required it here. 2. Lantus 90 units at night. This was changed. 3. Imdur as the patient's blood pressures have been normal to low normal. 4. Losartan discontinued due to acute kidney injury. 5. Metformin discontinued as not required here and recent acute kidney injury. Medications that were changed are: 1. Gabapentin, it was lowered to 300 mg b.i.d. for renal dosing. New medications are: 1. Tylenol 500 mg every 6 hours as needed. 2. Lantus 70 units at bedtime. 3. Regular insulin 3 units with meals scheduled as well as a correction scale with meals. 4. Regular insulin bedtime correction scale. 5. Septra DS one tablet b.i.d. for 5 more doses to complete UTI treatment. 6. Tramadol 25 mg every 6 hours as needed for moderate pain. Medications to continue: 1. Xanax 0.5 mg t.i.d. 2. Abilify 20 mg daily. 3. Aspirin 81 mg daily. 4. Atorvastatin 40 mg at bedtime. 5. Cymbalta 60 mg capsules two capsules daily. 6. Estradiol 1 mg daily. 7. TriCor 145 mg at bedtime. 8. Folic acid 1 mg daily. 9. Glargine insulin 80 units in the morning. 10. Levothyroxine 200 mcg daily. 11. Victoza 1.8 mg subcutaneous daily. 12. Magnesium oxide 500 mg daily. 13. Metoprolol tartrate 25 mg b.i.d. 14. Lovaza 2 g b.i.d. 15. Oxybutynin 10 mg at bedtime. 16. Protonix 40 mg b.i.d. 17. Sucralfate 1 g four times daily. 18. Anafranil 50 mg at bedtime. 19. Ropinirole 1 mg at bedtime. 20. Risperdal 1 mg at bedtime. FINAL DIAGNOSES: 1. Acute kidney injury in the context of chronic kidney disease stage 3, resolved. 2. Diabetes mellitus, uncontrolled, improved. 3. Urinary tract infection, pansensitive E coli. 4. Pancytopenia, chronic and stable. SECONDARY DIAGNOSES: 1. Hypertension. 2. History of gastric ulcers. 3. Dyslipidemia. 4. Pseudohyponatremia secondary to uncontrolled diabetes. 5. Hypothyroidism. 6. Coronary artery disease. 7. Mood disorder including bipolar, anxiety, depression. 8. History of stroke. 9. Restless legs. 10. History of rheumatoid arthritis. HISTORY OF PRESENT ILLNESS: Ms. Arce is a 67-year-old female with the above medical problems, who presents to the emergency room after a fall. In the emergency room, her blood sugars were found to be in the 600s and she had an acute kidney injury and hospitalist called for admission. HOSPITAL COURSE: The patient was significantly dehydrated on admission and she was hydrated with IV fluids. In addition, she was restarted on insulin to better control her blood sugars. The acute kidney injury was secondary to dehydration as well as an ARB as well as likely hypotension in the context of dehydration. The patient has tolerated this treatment well. Acute kidney injury has resolved and the patient is back to a normal creatinine for her and chronic kidney disease stage 3. She was evaluated by Dr. Durham and Dr. Razo with recommendation for outpatient followup. For diabetes, her insulin has been adjusted and her blood sugars have gone down approximately 100 each day of fasting. Today, her blood sugar was 158. Because of this, I am backing off on her nighttime insulin and this will need to be monitored in rehab. We also have her on 3 units of regular insulin per meal in addition to an aggressive sliding scale with meals and a bedtime scale at night. The patient has tolerated this well and again, this will need adjustment in rehab. Urinary tract infection with pansensitive E coli. Septra was started with a plan for 3-day course here. I discussed this with our pharmacist and no interactions are anticipated with the patient's home medications. The patient is on multiple medications at home. Some of these were held due to the acute kidney injury and they have been reintroduced as considered safer. Her gabapentin was reduced to b.i.d. dosing and she has tolerated this well. In addition, I have held some medications that were not essential here which may have been affecting mood or the propensity to fall. Specifically, I have stopped the cyclobenzaprine. The patient's blood pressures have been normal to low normal and her isosorbide was discontinued and her losartan was discontinued for this reason, as well as the acute kidney injury. The isosorbide can be added back as needed if her blood pressures do go up. I did continue her beta cortney and she is maintaining sinus rhythm while here. For the pancytopenia, this was chronic in the outpatient setting and stable here in the inpatient setting. She was evaluated by Hematology who discussed option for a bone marrow biopsy. This is deferred to the outpatient setting where she can follow up. The patient has had some pain in the back of her head as well as in her coccygeal region secondary to falling. This has been managed with very low-dose tramadol and she has tolerated this well. She did undergo a CT scan that was negative. The patient is overall doing well. Does meet criteria for discharge with a plan for inpatient rehab. PHYSICAL EXAMINATION: VITAL SIGNS: Blood pressure 107/65, temperature 97.7, pulse 73, respirations 20, sats 96% on room air. GENERAL: Awake, alert, responsive, in no apparent distress. Able to speak in full sentences. LUNGS: Clear to auscultation bilateral. No audible wheezing, rhonchi, or rales. HEART: Normal S1 and S2. Regular rate and rhythm. No audible murmurs. ABDOMEN: Soft with present bowel sounds. Nontender, nondistended. EXTREMITIES: No edema. ORDOÑEZ FINDINGS AND TEST RESULTS: CBC: 3.3, 11.2, 33.1, 91. Renal panel: 136, 3.9, 105, 22, 21, 1.19, 158 with blood sugars over the past 24 hours from 158 to 313. Urinalysis showed present glucose, moderate leuk esterase, 7 to 10 red blood cells, greater than 50 white blood cells. Beta hydroxybutyrate on admission was negative. Brain CT on admission with no acute intracranial findings. Involutional changes and chronic ischemic white matter changes and small old infarction in the left corpus striatum. Chest x-ray on 07/16, no acute pulmonary findings. DIET RESTRICTION: Carbohydrate consistent heart healthy. ACTIVITY: As tolerated with fall precautions. FOLLOWUP: Followup is: 1. With Dr. Durham or Dr. Razo within a week or two to continue monitoring renal function. 2. With Dr. Pino at the [facility] for further evaluation of the pancytopenia when discharged from rehab. 3. With the primary care provider, Dr. Salazar, to review this hospitalization and any other needs. CODE STATUS: Full. DISCHARGE DISPOSITION: Anticipated for inpatient rehab. Reviewed with the patient this hospitalization and the improvements noted, she agrees with transfer. No questions or further needs at the end of evaluation. TIME SPENT: Total time coordinating discharge is 45 minutes. Job ID: [id number]
[2018-07-19] MEDS ORDERED: Insulin Glargine 70 UNITS in Pre-Filled Syringe 1 EACH SC SCH (21:00)
== END 2018-07-19 14:36 | DRG 683 ==
LOC: ERS 14:55 → 2SE 16:48
PROVIDERS: ADMIT Family Medicine; ATTEND Family Medicine
DX: N17.9 Acute kidney failure, unspecified (principal); D61.818 Other pancytopenia; N39.0 Urinary tract infection, site not specified; B96.20 Unspecified Escherichia coli [E. coli] as the cause of diseases classified elsewhere; E11.65 Type 2 diabetes mellitus with hyperglycemia; F31.9 Bipolar disorder, unspecified; E78.5 Hyperlipidemia, unspecified; F41.9 Anxiety disorder, unspecified; G25.81 Restless legs syndrome; E86.0 Dehydration; D63.1 Anemia in chronic kidney disease; M06.9 Rheumatoid arthritis, unspecified; I25.10 Atherosclerotic heart disease of native coronary artery without angina pectoris; E03.9 Hypothyroidism, unspecified; W07.XXXA Fall from chair, initial encounter; K25.9 Gastric ulcer, unspecified as acute or chronic, without hemorrhage or perforation; E87.5 Hyperkalemia; N18.3 Chronic kidney disease, stage 3 (moderate); I12.9 Hypertensive chronic kidney disease with stage 1 through stage 4 chronic kidney disease, or unspecified chronic kidney disease; E11.22 Type 2 diabetes mellitus with diabetic chronic kidney disease; Y92.9 Unspecified place or not applicable; Z79.82 Long term (current) use of aspirin; Z95.5 Presence of coronary angioplasty implant and graft; Z79.899 Other long term (current) drug therapy; Z79.4 Long term (current) use of insulin; Z90.710 Acquired absence of both cervix and uterus; Z90.49 Acquired absence of other specified parts of digestive tract
CPT/HCPCS: 36415; 36416; 70450; 70551; 71045; 76770; 80048; 80053; 80061; 81003; 81015; 82010; 82330; 82550; 82728; 82803; 83540; 83550; 83690; 83735; 84100; 84443; 84484; 85025; 87040; 87077; 87086; 87186; 93005; A4353; J1815; J1825

== ENCOUNTER 2019-07-16 17:28 | Emergency (ER) | payer MEDICARE, MEDICAID ==
[2019-07-16 18:05] LABS: #Eosinphils 0.3 thou/uL (0.0-0.7); #Lymphocytes 1.3 thou/uL (1.20-3.40); #Monocytes 0.4 thou/uL (0.11-0.59); #Neutrophils 3.5 thou/uL (1.40-6.50); %Basophils 0.5 % (0.0-1.0); %Lymphocytes 23.2 % (21.0-51.0); %Monocytes 6.5 % (0.0-10.0); %Neutrophils 64.8 % (42.0-75.0); Hemoglobin 10.9 g/dL (12.0-16.0); Mean Corpuscular HGB CONC 34.5 g/dL (32.0-36.0); Mean Corpuscular Hemoglobin 30.1 pg (27.0-31.0); Mean Corpuscular Volume 87.2 fL (78.0-98.0); Mean Platelet Volume 9.1 fL (7.4-10.4); Platelet Count 111 thou/uL (130-400); RBC Distribution Width 12.5 % (11.5-14.5); Red Blood Cell (RBC) Count 3.62 mill/uL (4.20-5.40); White Blood Cell (WBC) Count 5.4 thou/uL (4.8-10.8)
[2019-07-16 18:30] LABS: ALT (SGPT) 18 U/L (8-55); AST (SGOT) 22 U/L (5-34); Albumin 3.9 g/dL (3.4-4.8); Alkaline Phosphatase 36 U/L (40-110); Anion Gap 12 mmol/L (10-20); BUN (Urea Nitrogen) 44 mg/dL (9.8-20.1); Bilirubin, Total 0.3 mg/dL (0.2-1.2); Calc. Creatinine Clearance 0 mL/min (70-130); Calcium 8.5 mg/dL (7.8-10.44); Carbon Dioxide 23 mmol/L (23-31); Chloride 107 mmol/L (98-107); Estimated GFR-MDRD 29; Globulin 2.9 g/dL (2.4-3.5); Glucose 180 mg/dL (80-115); Potassium 4.3 mmol/L (3.5-5.1); Protein, Total 6.8 g/dL (6.0-8.3); Sodium 138 mmol/L (136-145)
[2019-07-16] MEDS ORDERED: HYDROcodone/Acetaminophen 5/325 mg Tablet ONE (19:14)
--- NOTE | 2019-07-16 19:16 | RAD ---
LEFT HIP TWO VIEWS: HISTORY: Left hip pain FINDINGS: There is mild-moderate joint space narrowing from osteophytosis, and subchondral sclerosis. No acute fracture or dislocation are evident. Femoral hip contour is maintained. IMPRESSION: Mild-moderate osteoarthritic changes of the left hip.
--- NOTE | 2019-07-16 20:37 | MRI ---
MRI LUMBAR SPINE WITHOUT CONTRAST: History: Back pain, incontinence. Left leg pain and weakness. FINDINGS: Vertebral body heights are maintained. There is a focal area of increased T1 and T2 signal in the L1 vertebral body, consistent with hemangioma or focal fat. The conus medullaris ends at L1 level. There is disc desiccation at multiple levels in the lumbar spine. There is a small left lateral disc protrusion at L3-4 level without significant lateral recess or joshua ral foraminal stenosis. The exiting nerve root appears to be spared. Facet hypertrophic changes are noted, most prominent at L3-4, L4-5, and L5-S1 levels. There is a larg e right sided disc bulge with severe right sided neural foraminal stenosis at L5-S1 level. No signifi cant central canal stenosis is seen. IMPRESSION: Severe right neural foraminal stenosis due to bulging disc at L5-S1 level. POS: OFF
== END 2019-07-16 21:16 | disposition home or self-care (01) ==
LOC: ERS 17:28
DX: M51.26 Other intervertebral disc displacement, lumbar region (principal); R15.9 Full incontinence of feces; F41.9 Anxiety disorder, unspecified; F32.9 Major depressive disorder, single episode, unspecified; I10 Essential (primary) hypertension; E03.9 Hypothyroidism, unspecified; E78.5 Hyperlipidemia, unspecified; E11.9 Type 2 diabetes mellitus without complications; Z79.899 Other long term (current) drug therapy; Z79.4 Long term (current) use of insulin; Z79.82 Long term (current) use of aspirin
CPT/HCPCS: 36415; 72148; 80053; 83605; 85025

== ENCOUNTER 2020-02-03 19:53 | Observation (INO) | payer MEDICARE, MEDICAID ==
--- NOTE | 2020-02-03 20:43 | RAD ---
RADIOGRAPH CHEST 1 VIEW: DATE: 02/03/2020 HISTORY: 69-year-old female with generalized weakness, nausea, and dizziness FINDINGS: There is no consolidation, pulmonary edema, or pneumothorax. The lateral costophrenic angles are not effaced. There is mild haziness of bilateral lower lung zones, nonspecific. IMPRESSION: No consolidation
[2020-02-03 20:47] LABS: #Eosinphils 0.3 thou/uL (0.0-0.7); #Lymphocytes 1.3 thou/uL (1.20-3.40); #Monocytes 0.4 thou/uL (0.11-0.59); #Neutrophils 4.7 thou/uL (1.40-6.50); %Basophils 0.3 % (0.0-1.0); %Eosinophils 4.6 % (0.0-10.0); %Lymphocytes 19.6 % (21.0-51.0); %Monocytes 5.6 % (0.0-10.0); %Neutrophils 69.9 % (42.0-75.0); Hemoglobin 10.7 g/dL (12.0-16.0); Mean Corpuscular HGB CONC 33.5 g/dL (32.0-36.0); Mean Corpuscular Hemoglobin 28.5 pg (27.0-31.0); Mean Corpuscular Volume 85.1 fL (78.0-98.0); Mean Platelet Volume 8.9 fL (7.4-10.4); Platelet Count 127 thou/uL (130-400); RBC Distribution Width 12.5 % (11.5-14.5); Red Blood Cell (RBC) Count 3.74 mill/uL (4.20-5.40); White Blood Cell (WBC) Count 6.7 thou/uL (4.8-10.8)
[2020-02-03 21:08] LABS: ALT (SGPT) 16 U/L (8-55); AST (SGOT) 17 U/L (5-34); Albumin 3.6 g/dL (3.4-4.8); Alkaline Phosphatase 35 U/L (40-110); Anion Gap 16 mmol/L (10-20); BUN (Urea Nitrogen) 39 mg/dL (9.8-20.1); Bilirubin, Total 0.3 mg/dL (0.2-1.2); Calc. Creatinine Clearance 0 mL/min (70-130); Calcium 8.5 mg/dL (7.8-10.44); Carbon Dioxide 21 mmol/L (23-31); Chloride 106 mmol/L (98-107); Globulin 2.7 g/dL (2.4-3.5); Glucose 156 mg/dL (83-110); Potassium 5.1 mmol/L (3.5-5.1); Protein, Total 6.3 g/dL (6.0-8.3); Sodium 138 mmol/L (136-145)
[2020-02-03] MEDS ORDERED: Meclizine HCl 25 MG TAB ONE (21:17)
--- NOTE | 2020-02-03 21:48 | CT ---
CT BRAIN NONCONTRAST: DATE: 02/03/2020 HISTORY: 69-year-old female status post acute head trauma from fall. Headache, weakness, dizziness, and nausea FINDINGS: There is no evidence of acute intra-axial or extra-axial hemorrhage. There is no midline shift or any other mass effect. There is no extra-axial fluid collection. There is no evidence of obstructive hydrocephalus. Calvarium is intact. There is diffuse brain parenchymal volume loss. There are low att enuation areas in the white matter. These are nonspecific, but in a patient of this age, they are probably chronic ischemic white matter changes due to microvascular atherosclerosis. Tiny old lacunar infarctions in the bilateral frontal centrum semiovale and pulido radiata. Small old left deep frontal white matter infarction. Tiny lacunar infarctions in left basal ganglia. No interval change s gely 07/16/2018. IMPRESSION: 1) No acute intracranial findings. 2) involutional changes and chronic ischemic white matter changes. 3) old lacunar infarctions in the left basal ganglia and deep cerebral white matter.
[2020-02-04 08:39] LABS: SARS-CoV-2 MS2 Positive; SARS-CoV-2 N Gene Negative; SARS-CoV-2 S Gene Negative; SARS-CoV-2 by NAA Not Detected (NotDetected); SARS-CoV-2 orf1ab Negative
[2020-02-04] MEDS ORDERED: Labetalol HCl 100 MG/20 ML VIAL SLOW IVP PRN (08:46)
[2020-02-04] MEDS ORDERED: hydrALAZINE 20 MG/ML VIAL SLOW IVP PRN (08:46)
[2020-02-04] MEDS ORDERED: HumaLOG 300 UNITS/3 ML VIAL SC PRN (08:48)
[2020-02-04] MEDS ORDERED: Dextrose 5% in Water 1,000 ML IV PRN (08:48)
[2020-02-04] MEDS ORDERED: Dextrose 50% Abboject 50 ML SYRINGE SLOW IVP PRN (08:48)
[2020-02-04] MEDS ORDERED: Non-Formulary Item 1 EACH (Liraglutide [Victoza 3-Pak] 0.6 MG/0.1 ML Pen.Injctr) SC SCH (09:00)
[2020-02-04] MEDS ORDERED: Ondansetron PF 4 MG/2 ML Vial IVP PRN (09:20)
[2020-02-04] MEDS ORDERED: Calcium Carbonate 500 MG ChewTAB PO PRN (09:20)
[2020-02-04] MEDS ORDERED: Senokot S 8.6-50 MG TAB PO PRN (09:20)
[2020-02-04] MEDS ORDERED: Acetaminophen 325 MG TAB PO PRN (09:20)
[2020-02-04 09:51] LABS: Bacteria/HPF 4+ HPF (None Seen); RBC/HPF 21-50 HPF (0-3); Squamous Epithelial 0-3 HPF (0-3)
--- NOTE | 2020-02-04 09:52 | HP ---
PRIMARY CARE PHYSICIAN: Jason Salazar MD CHIEF COMPLAINT: Generalized weakness and dizziness. HISTORY OF PRESENT ILLNESS: The patient is a 69-year-old female with a past medical history significant for hypertension, hyperlipidemia, DM2 on insulin, hypothyroidism, stroke (1994) disease, anxiety and depression, who presents to the emergency room for the above complaint. The patient reports the acute onset of generalized weakness starting yesterday at approximately 10:00 a.m. She reports that she "thought her blood sugar was low." She felt like she was going to pass out. She denies that the room was spinning. Apparently, she has a lot of anxiety about her blood sugar levels because they can go low, so she has an gary on her phone that she can check her blood sugar levels regularly. She reports the symptoms at night. Her blood sugars will go down into the low 40s, however, her blood sugars were stable in the 100s to 150s during these episodes. She reports vomiting x1 episode. She denies any hemoptysis, abdominal pain, hematochezia/melena. She denies any vaginal discharge. She denies any dysuria or hematuria. She reports that she had a similar episode last Tuesday, which resolved spontaneously. She reports at that time, that she fell at home. She reports that she fell backwards into her bathtub, striking her back on the tub half wall and hitting her head on the back wall. She denies any LOC. She currently denies any head or neck pain. She reports that she was feeling fine until her most recent episode this Tuesday. She denies any chest pain, heart palpitations or swelling to the lower extremities. She denies any recent change in her medications. She denies any shortness of breath, cough, or wheezing. Currently, upon assessment, her only complaint is feeling nauseated. In the emergency department, the patient presented with stable vital signs. EKG, normal sinus rhythm. Initial troponin was negative. CT of the head was negative for any acute process. It did show old lacunar infarct to the left basal ganglia and deep white matter. Chest x-ray is negative for any acute process. The patient's blood glucose was 156. The patient was given meclizine and 1 L of normal saline, will be admitted to the floor. PAST MEDICAL HISTORY: 1. Hypertension. 2. Hyperlipidemia. 3. Diabetes type 2, on insulin. 4. Hypothyroidism. 5. Stroke (1994), no residual deficits. 6. Anxiety and depression. 7. CKD stage 3/4. PAST SURGICAL HISTORY: 1. CAD x1. 2. Cholecystectomy. 3. Hysterectomy. 4. Tonsillectomy. 5. Brain tumor, 1974, surgically removed. 6. Stomach tumor surgically removed. SOCIAL HISTORY: The patient lives alone. She just lost her spouse. She denies any history of smoking, illicit drug use, or alcohol intake. She is totally independent. She ambulates without any assistive devices. She does not work. FAMILY HISTORY: Negative for stroke and negative for cardiac disease, contributory for cancer dad and brother and contributory for diabetes in her mother. ALLERGIES: LISPRO GIVES HER A RASH. HOME MEDICATIONS: 1. Atorvastatin 40 mg p.o. at bedtime. 2. Tricor 145 mg p.o. daily. 3. Vascepa 1 g p.o. b.i.d. 4. Metoprolol tartrate 25 mg p.o. daily. 5. Imdur 60 mg p.o. q.a.m. 6. Aspirin 81 mg p.o. q.a.m. 7. Losartan 12.5 mg p.o. q.a.m. 8. Cymbalta 120 mg p.o. daily. 9. Ropinirole 1 mg p.o. b.i.d. 10. Abilify 20 mg p.o. daily. 11. Xanax 0.5 mg p.o. q.i.d. 12. Gabapentin 300 mg p.o. t.i.d. 13. Estradiol 1 mg p.o. daily. 14. Oxybutynin 10 mg p.o. daily. 15. Synthroid 200 mcg p.o. q.a.m. 16. Lantus 80 units in the a.m. and 75 units at bedtime. 17. NovoLog sliding scale with meals. 18. Metformin 500 mg p.o. t.i.d. 19. Victoza 1.8 units SC q.a.m. 20. Cyclobenzaprine 10 mg p.o. at bedtime. 21. Protonix 40 mg p.o. b.i.d. 22. Magnesium oxide 500 mg p.o. q.a.m. REVIEW OF SYSTEMS: All review of systems are negative as otherwise stated in the HPI. PHYSICAL EXAMINATION: VITAL SIGNS: Temperature 98.1, blood pressure 168/74, pulse 86, respirations 18, 96% on room air, 0/10 pain. Vital signs are stable. CONSTITUTIONAL: The patient is alert and oriented, no acute distress, nontoxic in appearance. HEAD: Atraumatic and normocephalic. EYES: PERRLA. Extraocular muscles intact. Sclerae nonicteric. NECK: Full range of motion. No cervical spinous tenderness. Supple. Trachea midline. RESPIRATORY/CHEST: Respirations even, nonlabored. Clear to auscultation. No rhonchi, wheezes, or rales. CARDIOVASCULAR: S1 and S2 appreciated. No murmurs, rubs, or gallops. ABDOMEN: Soft, nontender, mildly distended. Active bowel sounds. No guarding. No rigidity. No rebound. No abdominal bruit auscultated. Negative Rovsing sign. Negative Nieto sign. BACK: Full range of motion. No central spinous tenderness. No CVA tenderness. EXTREMITIES: Upper extremities; full range of motion, normal strength, sensation intact. Palpable radial pulses. Lower extremities; full range of motion, normal strength, sensation intact. Palpable pedal pulses. No swelling. NEUROLOGIC: NIH of 0. GCS of 15. No nystagmus. PSYCHOLOGIC: No SI, no HI. Alert and oriented x4. LABORATORY DATA AND DIAGNOSTICS: EKG was normal sinus rhythm, no ST elevations. Chest x-ray, negative for any acute process. CT brain, negative for any acute process, did show old lacunar infarct to the left basal ganglia and deep white matter. Sodium 138, potassium 5.1, chloride 106, carbon dioxide 21, BUN 39, creatinine 1.9, GFR 26, glucose 156, calcium 8.5, total bilirubin 0.3, AST 17, ALT 16, alkaline phosphatase 35. Initial troponin negative. Albumin 3.6. WBC 6.7, hemoglobin 10.7, hematocrit 31.8, platelets 127. IMPRESSION: 1. Near syncope, rule out cerebrovascular accident. 2. Fall 3. Hypertension. 4. Hyperlipidemia. 5. Diabetes mellitus type 2. 6. Hypothyroidism. 7. History of stroke. 8. Anxiety and depression. 9. Chronic kidney disease, 3. 10. Chronic anemia PLAN: This 69-year-old female presents for generalized weakness and near syncope. Admit to stroke unit, observation status. Expected length of stay less than two midnights. Concern for stroke. We will order MRI brain, carotid Doppler, ultrasound, echocardiogram. We will consult stroke team and Neurology. We will continue full-dose aspirin and high-intensity statin. We will check fasting lipid profile, TSH, magnesium level, UA, B12/folate level. We will check orthostatic vital signs. We will allow permissive hypertension. We will restart home dose metoprolol, Imdur, and losartan. In terms of her anxiety and depression, we will restart home dose of Cymbalta, ropinirole, Abilify. We will hold Xanax for now. In terms of her peripheral neuropathy, we will restart gabapentin, at reduced dose. We will restart home dose of Synthroid. In terms of her diabetes, we will place her on aggressive sliding scale with Accu-Cheks before meals and at bedtime. We will restart home dose of Lantus at decreased dosing, 50 units q.a.m. and 40 units at bedtime. We will hold home dose of metformin and Victoza and start intermittent sliding scale. We will hold home dose of cyclobenzaprine for now. SCDs for DVT prophylaxis. PPI for gastrointestinal prophylaxis. Code status is full code. Discussed the case with attending physician, Dr. Santos. Job ID: [id number] MTDD
[2020-02-04 09:59] LABS: Bilirubin Negative (Negative); Blood, Urine 3+ (Negative); Clarity Clear (Clear); Glucose, Urine (Dipstick) Normal (Negative); Ketone, Urine Negative (Negative); Leukocyte 25 Leu/uL (Negative); Nitrite Negative (Negative); Protein, Urine (Dipstick) Negative (Neg-Trace); Specific Gravity, Urine 1.014 (1.002-1.036); Urobilinogen Normal mg/dL (Less than 2)
--- NOTE | 2020-02-04 11:13 | ULT ---
US Carotid Doppler STANDARD History: Near syncope Comparison: None. Findings: Real-time grayscale, color and spectral analysis of the extracranial carotid and vertebral arteries was performed. No elevated peak systolic velocities within the internal carotid arteries. Antegrade flow both verteb ral arteries. Impression: No hemodynamically significant stenosis.
[2020-02-04] MEDS ORDERED: DULoxetine 60 MG CAP PO SCH (12:00)
[2020-02-04] MEDS ORDERED: Metoprolol Tartrate 25 MG TAB PO SCH (12:00)
[2020-02-04 12:10] LABS: Troponin I Less than 0.010 ng/mL (< 0.028)
[2020-02-04 12:30] VITALS: BMI 35.9
--- NOTE | 2020-02-04 12:31 | MRI ---
MRI of thebrain: 02/04/2020 COMPARISON:07/17/2018 HISTORY:Dizziness and nausea, assess for acute infarction TECHNIQUE: Multiplanar multisequence MR imaging of thebrain without contrast Findings:The regional bone marrow signal intensity appears within normal limits. There are a few opac ified mastoid air cells bilaterally. Imaged paranasal sinuses are unremarkable. Arterial flow voids at the axial level of the skull base appear grossly unremarkable on the T2 imagin g. Multifocal periventricular, deep, and subcortical white matter T2 and FLAIR hyperintensity consistent with stable small vessel disease. The axial gradient echo imaging demonstrates stable blooming artifact within the left aspect of the p ons suggesting remote hemorrhage. T2 and FLAIR hyperintensity in this region is again noted consistent with prior pontine infarction. No evidence for acute intracranial hemorrhage. The diffusion weighted imaging demonstrates no evidence for acute infarction. IMPRESSION:Stable brain MRI. No evidence for acute hemorrhage or infarction.
[2020-02-04] MEDS: Estradiol 1 MG TAB PO SCH (13:11)
[2020-02-04] MEDS: Losartan 25 MG TAB PO SCH (13:11)
[2020-02-04] MEDS: Folic Acid 1 MG TAB PO SCH (13:11)
[2020-02-04] MEDS: cefTRIAXone\\ROCEPHIN 1 GM in Sodium Chloride 0.9% 100 ML IVPB SCH (13:13)
--- NOTE | 2020-02-04 14:55 | PDOC.BPN ---
- Brief Progress Note Encounter Date: 02/04/20 Encounter Time: 14:53 Pt evaluated and discussed with HAND TOOL FILER Jennifer - see complete H&P on the chart. She c/o dizziness like her blood sugar is low, nausea and vomiting today and a week ago. She denies any other sx. VS - mildly hypertensive. Gen - awake, alert, responsive, nad Lungs - ctab heart - normal s1/s2 without audible murmurs abd - soft, nt/nd ext - no edema Imp/Plan -in addition to plan outlined in H&P 1. Likely UTI - started on rocephin with cx ordered 2. Hypothyroid -low tsh, currently overtreated, will lower synthroid to 150 mcg daily Reviewed plan of care with patient and HAND TOOL FILER Jennifer, no questions or further needs at end of eval. Addendum at 21:51 - Appreciate Palliative Care consult - code status updated to DNAR.
[2020-02-04] MEDS: Gabapentin 100 MG CAP PO SCH ×2 (15:50→23:15)
[2020-02-04] MEDS: Ondansetron ODT 4 MG TAB PO PRN (15:50)
[2020-02-04] MEDS: HumaLOG 300 UNITS/3 ML VIAL SC PRN ×2 (15:51→17:30)
--- NOTE | 2020-02-04 16:21 | CON ---
DATE OF CONSULTATION: 02/04/2020 CONSULTING PHYSICIAN: Hospitalist Service. IMPRESSION: 1. Vomiting of undetermined origin, which led to some generalized weakness. 2. Prior history of a stroke. 3. Diabetes. 4. Hypertension. 5. Hyperlipidemia. PLAN: 1. Continue aspirin and a statin. 2. Consider GI evaluation. HISTORY OF PRESENT ILLNESS: Ms. Arce is a 69-year-old female, who presented with complaints of repetitive bouts of vomiting for the last 2 weeks. She has had it last week, but it seemed to have subsided. It recurred again prior to admission. She felt very weak in general secondary to this. She checked her blood sugar and found that it was in normal range. She was subsequently admitted for a stroke workup. Her MRI of the brain was negative for any acute ischemic event. Carotid ultrasound was clear bilaterally. Her EKG showed normal sinus rhythm. Her orthostatic blood pressure measurements were stable. She does appear to have a urinary tract infection. Her COVID test was negative. PAST MEDICAL HISTORY: As listed above. ALLERGIES: NONE REPORTED. SOCIAL HISTORY: No tobacco or alcohol. FAMILY HISTORY: Noncontributory. REVIEW OF SYSTEMS: Ten-system review of systems is otherwise negative. PHYSICAL EXAMINATION: GENERAL: She is a slightly overweight, elderly woman, sitting at the bedside, no distress. VITAL SIGNS: Have been stable. She is afebrile. HEENT: Pupils are equal and reactive. Conjunctivae are clear. NECK: Supple. ABDOMEN: Soft and nontender. EXTREMITIES: No cyanosis or edema. SKIN: Clear. NEUROLOGIC: Nonfocal. Her speech is fluent and clear. SUMMARY: This is a non-neurologic issue appropriate. Job ID: [id number]
[2020-02-04] MEDS: Sucralfate 1 GM TAB PO SCH ×2 (17:29→23:17)
[2020-02-04] MEDS: Icosapent Ethyl 1 GM CAPSULE PO SCH (17:29)
[2020-02-04] MEDS ORDERED: risperiDONE 1 MG TAB PO SCH (21:00)
[2020-02-04] MEDS ORDERED: Atorvastatin Calcium 40 MG TAB PO SCH (21:00)
[2020-02-04] MEDS ORDERED: Insulin Glargine 30 UNITS in Pre-Filled Syringe 1 EACH SC SCH (21:00)
[2020-02-04] MEDS ORDERED: rOPINIRole HCl 1 MG TAB PO SCH (21:00)
[2020-02-04] MEDS ORDERED: Donepezil HCl 5 MG TAB PO SCH (21:00)
[2020-02-04] MEDS: Metoprolol Tartrate 25 MG TAB PO SCH (23:16)
[2020-02-05] MEDS ORDERED: Levothyroxine Sodium 100 MCG TAB PO SCH (06:00)
[2020-02-05] MEDS ORDERED: Levothyroxine 150 MCG TAB PO SCH (06:00)
[2020-02-05 06:04] LABS: #Basophils 0.1 thou/uL (0.0-0.2); #Eosinphils 0.3 thou/uL (0.0-0.7); #Lymphocytes 1.5 thou/uL (1.20-3.40); #Monocytes 0.4 thou/uL (0.11-0.59); #Neutrophils 3.4 thou/uL (1.40-6.50); %Basophils 1.7 % (0.0-1.0); %Eosinophils 5.5 % (0.0-10.0); %Lymphocytes 26.6 % (21.0-51.0); %Monocytes 6.6 % (0.0-10.0); %Neutrophils 59.6 % (42.0-75.0); Hemoglobin 10.6 g/dL (12.0-16.0); Mean Corpuscular HGB CONC 33.2 g/dL (32.0-36.0); Mean Corpuscular Volume 84.4 fL (78.0-98.0); Mean Platelet Volume 8.8 fL (7.4-10.4); Platelet Count 113 thou/uL (130-400); RBC Distribution Width 12.5 % (11.5-14.5); Red Blood Cell (RBC) Count 3.77 mill/uL (4.20-5.40); White Blood Cell (WBC) Count 5.7 thou/uL (4.8-10.8)
[2020-02-05 06:16] LABS: Anion Gap 14 mmol/L (10-20); BUN (Urea Nitrogen) 36 mg/dL (9.8-20.1); Calc. Creatinine Clearance 46 mL/min (70-130); Calcium 8.5 mg/dL (7.8-10.44); Carbon Dioxide 22 mmol/L (23-31); Cardiac Risk 2.9 (Less than 4.5); Chloride 104 mmol/L (98-107); Cholesterol 83 mg/dl (< 200 Desired); Glucose 157 mg/dL (83-110); HDL Cholesterol 29 mg/dL (>60 Neg Risk); LDL Cholesterol, Calculated 21 mg/dL; Magnesium 1.3 mg/dL (1.6-2.6); Potassium 4.2 mmol/L (3.5-5.1); Sodium 136 mmol/L (136-145); Triglycerides 167 mg/dL (Less than 150)
[2020-02-05] MEDS: HumaLOG 300 UNITS/3 ML VIAL SC PRN ×2 (07:16→11:41)
[2020-02-05] MEDS: Icosapent Ethyl 1 GM CAPSULE PO SCH (08:23)
[2020-02-05] MEDS: Losartan 25 MG TAB PO SCH (08:25)
[2020-02-05] MEDS: Sucralfate 1 GM TAB PO SCH ×2 (08:25→11:41)
[2020-02-05] MEDS: Estradiol 1 MG TAB PO SCH (08:26)
[2020-02-05] MEDS: Gabapentin 100 MG CAP PO SCH ×2 (08:26→16:14)
[2020-02-05] MEDS: Folic Acid 1 MG TAB PO SCH (08:26)
[2020-02-05] MEDS: Metoprolol Tartrate 25 MG TAB PO SCH (08:26)
[2020-02-05] MEDS ORDERED: Aspirin 325 mg Enteric Coated Tablet PO SCH (09:00)
[2020-02-05] MEDS ORDERED: Aripiprazole 10 MG TAB PO SCH (09:00)
[2020-02-05] MEDS ORDERED: Oxybutynin ER 5 MG TAB PO SCH (09:00)
[2020-02-05] MEDS ORDERED: Magnesium Oxide 250 MG TAB PO SCH (09:00)
[2020-02-05] MEDS ORDERED: Insulin Glargine 50 UNITS in Pre-Filled Syringe 1 EACH SC SCH (09:00)
[2020-02-05] MEDS ORDERED: DULoxetine 60 MG CAP PO SCH (09:00)
[2020-02-05] MEDS: Ondansetron ODT 4 MG TAB PO PRN (11:41)
[2020-02-05 12:04] VITALS: BP 128/70; TEMP 98.7
--- NOTE | 2020-02-05 12:25 | PDOC.HOSPP ---
- Subjective Encounter Date: 02/05/20 Encounter Time: 13:30 Subjective: Patient feeling better. Had some nausea this AM but no vomiting and better with Zofran. Ambulated well with PT yesterday, hasn't tried yet today. - Objective Vital Signs & Weight: Vital Signs (12 hours) Temp Pulse Pulse Pulse Resp BP BP 02/05/20 12:00 98.7 F 63 14 02/05/20 09:15 64 68 134/67 124/63 02/05/20 08:18 02/05/20 07:49 98.0 F 66 14 02/05/20 04:00 98.0 F 71 18 BP BP BP Pulse Ox 02/05/20 12:00 128/70 97 02/05/20 09:15 02/05/20 08:18 144/68 H 134/67 145/67 H 02/05/20 07:49 148/71 H 95 02/05/20 04:00 95 Weight Admit Weight 203 lb Weight 203 lb I&O: 02/04/20 02/05/20 02/06/20 06:59 06:59 06:59 Intake Total 240 120 112 Output Total 150 Balance 240 -30 112 Result Diagrams: 02/05/20 04:50 02/05/20 04:50 Additional Labs: Accuchecks 02/05/20 02/05/20 02/04/20 10:48 05:31 21:00 POC Glucose 300 H 166 H 216 H 02/04/20 16:27 POC Glucose 184 H Hospitalist ROS - Review of Systems Constitutional: denies: fever, chills Respiratory: denies: cough, shortness of breath Cardiovascular: denies: chest pain, palpitations Gastrointestinal: reports: nausea. denies: vomiting, abdominal pain, diarrhea Genitourinary: denies: dysuria, frequency - Medication Medications: Active Medications Generic Name Dose Route Start Last Admin Trade Name Freq PRN Reason Stop Dose Admin Aripiprazole 20 mg 02/05/20 09:00 02/05/20 08:27 Aripiprazole 10 Mg Tab PO 20 mg DAILY SHARON Administration Aspirin 325 mg 02/05/20 09:00 02/05/20 08:25 Aspirin 325 Mg Enteric Coated Tablet PO 325 mg DAILY SHARON Administration Atorvastatin Calcium 40 mg 02/04/20 21:00 02/04/20 23:14 Atorvastatin Calcium 40 Mg Tab PO 40 mg HS SHARON Administration Donepezil HCl 5 mg 02/04/20 21:00 02/04/20 23:14 Donepezil Hcl 5 Mg Tab PO 5 mg HS SHARON Administration Duloxetine HCl 120 mg 02/05/20 09:00 02/05/20 08:25 Duloxetine 60 Mg Cap PO 120 mg QAM SHARON Administration Estradiol 1 mg 02/04/20 09:00 02/05/20 08:26 Estradiol 1 Mg Tab PO 1 mg QAM SHARON Administration Folic Acid 1 mg 02/04/20 09:00 02/05/20 08:26 Folic Acid 1 Mg Tab PO 1 mg DAILY SHARON Administration Gabapentin 100 mg 02/04/20 15:00 02/05/20 08:26 Gabapentin 100 Mg Cap PO 100 mg TID SHARON Administration Ceftriaxone Sodium 1 gm/ 100 mls @ 200 mls/hr 02/04/20 13:00 02/04/20 13:13 Sodium Chloride IVPB 100 mls 1300 SHARON Administration Insulin Glargine 50 units/ 0.5 mls @ 0 mls/hr 02/05/20 09:00 02/05/20 09:48 Miscellaneous Medication SC 0.5 mls QAM SHARON Administration Insulin Glargine 30 units/ 0.3 mls @ 0 mls/hr 02/04/20 21:00 02/04/20 23:17 Miscellaneous Medication SC 0.3 mls HS SHARON Administration Insulin Human Lispro 0 units 02/04/20 08:48 02/05/20 11:41 Humalog 300 Units/3 Ml Vial SC 9 unit .AGGRESSIVE SLIDING PRN Administration Aggressive [employer]al Scale Isosorbide Mononitrate 60 mg 02/04/20 09:00 02/05/20 08:26 Isosorbide Mononitrate Er 60 Mg Tab PO 60 mg DAILY SHARON Administration Levothyroxine Sodium 150 mcg 02/05/20 06:00 02/05/20 05:00 Levothyroxine 150 Mcg Tab PO 150 mcg 0600 SHARON Administration Losartan Potassium 12.5 mg 02/04/20 09:00 02/05/20 08:25 Losartan 25 Mg Tab PO 12.5 mg QAM SHARON Administration Magnesium Oxide 500 mg 02/05/20 09:00 02/05/20 08:24 Magnesium Oxide 250 Mg Tab PO 500 mg QAM SHARON Administration Metoprolol Tartrate 25 mg 02/04/20 21:00 02/05/20 08:26 Metoprolol Tartrate 25 Mg Tab PO 25 mg BID SHARON Administration Miscellaneous Medication 2 gm 02/04/20 17:00 02/05/20 08:23 Icosapent Ethyl 1 Gm Capsule PO 2 gm BID-WM SHARON Administration Ondansetron HCl 4 mg 02/04/20 09:20 02/05/20 11:41 Ondansetron Odt 4 Mg Tab PO 4 mg Q6H PRN Administration Nausea/Vomiting Oxybutynin Chloride 10 mg 02/05/20 09:00 02/05/20 08:24 Oxybutynin Er 5 Mg Tab PO 10 mg DAILY SHARON Administration Pantoprazole Sodium 40 mg 02/05/20 09:00 02/05/20 08:24 Pantoprazole 40 Mg Tab PO 40 mg DAILY SHARON Administration Risperidone 1 mg 02/04/20 21:00 02/04/20 23:16 Risperidone 1 Mg Tab PO 1 mg HS SHARON Administration Ropinirole HCl 1 mg 02/04/20 21:00 02/04/20 23:16 Ropinirole Hcl 1 Mg Tab PO 1 mg HS SHARON Administration Sodium Chloride 10 ml 02/04/20 08:46 02/05/20 08:30 Flush - Normal Saline 10 Ml Syringe IVF 10 ml PRN PRN Administration Saline Flush Sucralfate 1 gm 02/04/20 17:00 02/05/20 11:41 Sucralfate 1 Gm Tab PO 1 gm ACHS SHARON Administration - Exam General Appearance: NAD, awake alert ENT: moist mucosa Heart: RRR, no murmur, no gallops, no rubs Respiratory: CTAB, no wheezes, no rales, no ronchi Gastrointestinal: soft, non-tender, non-distended, normal bowel sounds Extremities: no edema Psychiatric: normal affect, normal behavior, A&O x 3 Hosp A/P (1) Near syncope Status: Acute (2) Weakness Code(s): R53.1 - WEAKNESS Status: Acute (3) Diabetes mellitus type 2, uncomplicated Code(s): E11.9 - TYPE 2 DIABETES MELLITUS WITHOUT COMPLICATIONS Status: Chronic (4) Dyslipidemia Code(s): E78.5 - HYPERLIPIDEMIA, UNSPECIFIED Status: Chronic (5) Hypertension Code(s): I10 - ESSENTIAL (PRIMARY) HYPERTENSION Status: Chronic (6) Hypothyroidism Code(s): E03.9 - HYPOTHYROIDISM, UNSPECIFIED Status: Chronic (7) UTI (urinary tract infection) Status: Acute - Plan Patient with negative MRI. No evidence neurologic disease. Ambulating well with PT. Clear to d/c home. Patient does have mild UTI, growing E.coli. Will d/c on Macrobid. Also Zofran for nausea. TSH was low so levothyroxine dose decreased.
[2020-02-05] MEDS: cefTRIAXone\\ROCEPHIN 1 GM in Sodium Chloride 0.9% 100 ML IVPB SCH (13:00)
--- NOTE | 2020-02-05 21:15 | DIS ---
DATE OF ADMISSION: 02/04/2020 DATE OF DISCHARGE: 02/05/2020 PRIMARY CARE PHYSICIAN: Jason Salazar MD REASON FOR ADMISSION: Generalized weakness and dizziness. DIAGNOSES AT DISCHARGE: 1. Urinary tract infection. 2. Near syncope with weakness, improved. 3. Diabetes mellitus type 2. 4. Dyslipidemia. 5. Hypertension. 6. Hypothyroidism. PROCEDURES: 1. CT scan of the brain without contrast showing no acute intracranial findings. There are some old infarcts visualized. 2. Ultrasound of the carotid arteries showing no hemodynamically significant stenosis. 3. MRI of the brain showing no acute hemorrhage or infarction. Stable findings on her MRI. 4. Echocardiogram showing ejection fraction of 55% to 60% with diastolic dysfunction and no intracardiac thrombi. CONSULTATIONS: Neurology, Dr. Mcghee. SUMMARY OF HOSPITAL COURSE: This is a 69-year-old white female with past medical history of hypertension, hyperlipidemia, diabetes, hypothyroidism, and previous stroke who presented with generalized weakness and dizziness and felt like she was going to pass out. She reported that about a week ago, she had some nausea and vomiting episodes that resolved for a couple of days that came back again 1 to 2 days ago. She was evaluated in the emergency room, was observed in the hospital for possibility of posterior stroke. She had MRI done as above showing no evidence of stroke. Neurology was consulted. He determined this was non-neurologic in origin. The patient was found to have E coli growing in her urine. She was given Rocephin while in the hospital. She was also given IV fluids and she was able to ambulate well with physical therapy. On the day of discharge, the patient was feeling much better after some Zofran and the fluids, so we are discharging her home. DISCHARGE MANAGEMENT: Discharged home with Home Health with [facility]. ACTIVITY: As tolerated. DIET: Diabetic diet. THERAPY: Occupational and Physical Therapy with Home Health. FOLLOWUP: Follow up with primary care physician in 7 days. DISCHARGE MEDICATIONS: 1. Nitrofurantoin 100 mg twice a day, 14 capsules dispensed. 2. Levothyroxine decreased to 150 mcg daily, 30 tablets dispensed. 3. Zofran ODT 4 mg every 6 hours as needed for nausea and vomiting, 15 tablets dispensed. 4. Abilify 20 mg daily. 5. Aspirin 81 mg daily. 6. Atorvastatin 40 mg at night. 7. Aricept 5 mg at night. 8. Duloxetine 60 mg 2 caps daily. 9. Estradiol 1 mg daily. 10. Folic acid 1 mg daily. 11. Gabapentin 300 mg 3 times a day. 12. Vascepa 1 g capsules 2 capsules twice a day. 13. Isosorbide mononitrate 60 mg daily. 14. Losartan 50 mg daily. 15. Magnesium 500 mg daily. 16. Metoprolol tartrate 25 mg twice a day. 17. Oxybutynin extended release 10 mg daily. 18. Risperdal 1 mg at night. 19. Ropinirole 1 mg at night. 20. Sucralfate 1 g p.o. a.c. and at bedtime. 21. Xanax 0.5 mg 4 times a day as needed. 22. Flexeril 10 mg at night. 23. Lantus 100 units at night and 120 units in the morning along with a sliding scale. 24. Victoza 1.8 mg subcu daily. 25. Metformin 500 mg 3 times a day. Job ID: [id number]
--- NOTE | 2020-02-09 16:55 | EKG ---
Test Reason : DIZZINESS Blood Pressure : / mmHG Vent. Rate : 061 BPM Atrial Rate : 061 BPM P-R Int : 190 ms QRS Dur : 100 ms QT Int : 418 ms P-R-T Axes : 027 007 049 degrees QTc Int : 420 ms Normal sinus rhythm Normal ECG Confirmed by SHERIE RICHARDSON ([id number]), editor publications ADDY GALARZA ([id number]) on 02/09/2020 4:55:26 PM Referred By: DAVIS HERNANDEZ Confirmed By:SHERIE Barreto
== END 2020-02-05 16:20 | disposition home health service (06) ==
LOC: ERS 19:53 → 2SE 02-04 00:09
PROVIDERS: ADMIT Internal Medicine; ATTEND Emergency Medicine
DX: N39.0 Urinary tract infection, site not specified (principal); B96.20 Unspecified Escherichia coli [E. coli] as the cause of diseases classified elsewhere; R55 Syncope and collapse; R53.1 Weakness; R42 Dizziness and giddiness; I12.9 Hypertensive chronic kidney disease with stage 1 through stage 4 chronic kidney disease, or unspecified chronic kidney disease; E11.22 Type 2 diabetes mellitus with diabetic chronic kidney disease; N18.30 Chronic kidney disease, stage 3 unspecified; D63.1 Anemia in chronic kidney disease; E78.5 Hyperlipidemia, unspecified; E03.9 Hypothyroidism, unspecified; F41.9 Anxiety disorder, unspecified; F32.9 Major depressive disorder, single episode, unspecified; R11.2 Nausea with vomiting, unspecified; Z86.73 Personal history of transient ischemic attack (TIA), and cerebral infarction without residual deficits; Z79.4 Long term (current) use of insulin; Z79.82 Long term (current) use of aspirin; Z79.899 Other long term (current) drug therapy; Z88.8 Allergy status to other drugs, medicaments and biological substances; Z95.5 Presence of coronary angioplasty implant and graft; Z20.828 Contact with and (suspected) exposure to other viral communicable diseases
CPT/HCPCS: 70450; 70551; 71045; 80048; 80053; 80061; 81001; 82607; 82746; 82962 ×2; 83735; 84443; 84484 ×2; 85025 ×2; 87077; 87086; 87186; 93005; 93306; 93880; 94760; 97116; 97139 ×5; 99285; G0378 ×3; U0003; 36415; 36416; 87635; J0696; J1815; J3490; Q0162

== ENCOUNTER 2020-04-07 11:36 | Emergency (ER) | payer MEDICARE, MEDICAID ==
[2020-04-07 12:17] LABS: #Eosinphils 0.2 thou/uL (0.0-0.7); #Lymphocytes 1.1 thou/uL (1.20-3.40); #Monocytes 0.4 thou/uL (0.11-0.59); #Neutrophils 4.5 thou/uL (1.40-6.50); %Basophils 0.1 % (0.0-1.0); %Eosinophils 3.5 % (0.0-10.0); %Lymphocytes 17.4 % (21.0-51.0); %Monocytes 6.2 % (0.0-10.0); %Neutrophils 72.9 % (42.0-75.0); Hemoglobin 10.9 g/dL (12.0-16.0); Mean Corpuscular HGB CONC 32.4 g/dL (32.0-36.0); Mean Corpuscular Hemoglobin 28.3 pg (27.0-31.0); Mean Corpuscular Volume 87.5 fL (78.0-98.0); Mean Platelet Volume 9.1 fL (7.4-10.4); Platelet Count 121 thou/uL (130-400); RBC Distribution Width 12.1 % (11.5-14.5); Red Blood Cell (RBC) Count 3.85 mill/uL (4.20-5.40); White Blood Cell (WBC) Count 6.1 thou/uL (4.8-10.8)
[2020-04-07 12:20] LABS: Actual Bicarbonate (HCO3v) 19 mEq/L (22-28); Analyzer IN Cardio ER; Base Excess -4.2 mEq/L (-2.0 to +3.0); Calcium, Ionized (venous) 1.03 mmol/L (1.16-1.32); Chloride (VBG) 102 mmol/L (98-106); Potassium (VBG) 4.98 mmol/L (3.70-5.30); Sodium 130.7 mmol/L (133-146); pH (venous) 7.44 (7.32-7.43)
[2020-04-07 12:38] LABS: ALT (SGPT) 16 U/L (8-55); AST (SGOT) 16 U/L (5-34); Albumin 3.8 g/dL (3.4-4.8); Alkaline Phosphatase 37 U/L (40-110); Anion Gap 13 mmol/L (10-20); BUN (Urea Nitrogen) 44 mg/dL (9.8-20.1); Bilirubin, Total 0.3 mg/dL (0.2-1.2); Calc. Creatinine Clearance 0 mL/min (70-130); Calcium 8.5 mg/dL (7.8-10.44); Carbon Dioxide 20 mmol/L (23-31); Chloride 103 mmol/L (98-107); Globulin 2.5 g/dL (2.4-3.5); Glucose 500 mg/dL (83-110); Lipase 47 U/L (8-78); Magnesium 1.3 mg/dL (1.6-2.6); Phosphorus 2.1 mg/dL (2.3-4.7); Potassium 5.1 mmol/L (3.5-5.1); Protein, Total 6.3 g/dL (5.8-8.1); Sodium 131 mmol/L (136-145)
[2020-04-07 14:13] LABS: Bacteria/HPF None Seen HPF (None Seen); Bilirubin Negative (Negative); Blood, Urine 3+ (Negative); Clarity Clear (Clear); Glucose, Urine (Dipstick) Greater than 1000 mg/dL (Negative); Ketone, Urine Negative (Negative); Leukocyte Negative Leu/uL (Negative); Nitrite Negative (Negative); Protein, Urine (Dipstick) 10 mg/dL (Neg-Trace); RBC/HPF 21-50 HPF (0-3); Specific Gravity, Urine 1.021 (1.002-1.036); Squamous Epithelial 0-3 HPF (0-3); Urobilinogen Normal mg/dL (Less than 2); WBC/HPF 0-3 HPF (0-3); pH, Urine 5.5 (5.0-9.0)
== END 2020-04-07 14:48 | disposition home or self-care (01) ==
LOC: ERS 11:36
DX: E11.65 Type 2 diabetes mellitus with hyperglycemia (principal); E03.9 Hypothyroidism, unspecified; E78.5 Hyperlipidemia, unspecified; I10 Essential (primary) hypertension; Z86.73 Personal history of transient ischemic attack (TIA), and cerebral infarction without residual deficits; Z79.82 Long term (current) use of aspirin; Z79.01 Long term (current) use of anticoagulants; Z79.4 Long term (current) use of insulin; Z79.899 Other long term (current) drug therapy
CPT/HCPCS: 36415; 36416; 51701; 80053; 81003; 81015; 82010; 82805; 83690; 83735; 84100; 85025; 94760

== ENCOUNTER 2023-02-15 05:32 | Inpatient (IN) | payer MEDICARE ==
[2023-02-14 16:30] VITALS: BMI 34.0
[2023-02-15] MEDS ORDERED: Tranexamic Acid 1,000 MG/10 ML VIAL ONE (06:10)
[2023-02-15] MEDS ORDERED: Sodium Chloride 0.9% 100 ML ONE ×2 (06:10→06:58)
[2023-02-15] MEDS ORDERED: Vancomycin (BATCH) 1.5 GM/300 ML BAG ONE (06:10)
[2023-02-15] MEDS ORDERED: PROPOFOL 20 ML ONE (06:14)
[2023-02-15] MEDS ORDERED: Lidocaine 2% 6 ML (Jelly) SYR ONE (06:16)
[2023-02-15] MEDS ORDERED: Midazolam HCl 2 mg/2 ml Vial ONE (06:16)
[2023-02-15] MEDS ORDERED: fentaNYL PF 100 MCG/2 ML SYRINGE ONE ×3 (06:17→08:00)
[2023-02-15] MEDS ORDERED: CEFAZOLIN 2 GM VIAL ONE (06:58)
[2023-02-15] MEDS ORDERED: Bupivacaine PF 0.5% 30 ML VIAL ONE ×2 (06:58→08:16)
[2023-02-15] MEDS ORDERED: EPINEPHrine 1 MG/ML VIAL ONE ×2 (07:07→08:16)
[2023-02-15] MEDS ORDERED: Bupivacaine 0.25% HCL 30 ML VIAL ONE (07:08)
[2023-02-15] MEDS ORDERED: PHENYLEPHRINE-NS 100 MCG/ML 10 ML SYRINGE ONE (07:41)
[2023-02-15] MEDS ORDERED: fentaNYL 50 mcg/mL 1 mL Vial SLOW IVP PRN (07:51)
[2023-02-15] MEDS ORDERED: Zolpidem Tartrate 5 MG TAB PO PRN ×2 (08:00→10:06)
[2023-02-15] MEDS ORDERED: Ropivacaine 0.2% 550 ML 550 ML NERVE BLCK SCH (08:00)
[2023-02-15] MEDS ORDERED: Ondansetron PF 4 MG/2 ML Vial IVP PRN ×2 (08:00→10:06)
[2023-02-15] MEDS ORDERED: Promethazine HCl 25 MG/ML VIAL IM PRN ×2 (08:00→10:06)
[2023-02-15] MEDS ORDERED: diphenhydrAMINE 50 MG/ML VIAL ONE (08:03)
[2023-02-15] MEDS ORDERED: Ondansetron PF 4 MG/2 ML Vial ONE (08:03)
[2023-02-15] MEDS ORDERED: Lidocaine 1% (PF) 30 ML VIAL ONE (08:16)
[2023-02-15] MEDS ORDERED: traMADol HCl 50 MG TAB PO PRN (08:45)
[2023-02-15] MEDS ORDERED: PACU-Morphine 4MG/ML VIAL SLOW IVP PRN (09:01)
[2023-02-15] MEDS ORDERED: Ondansetron HCl/PF 4 MG/2 ML Vial IVP PRN (09:01)
[2023-02-15] MEDS ORDERED: Metoprolol Tartrate 5 MG (5 mL) VIAL ONE (09:17)
[2023-02-15] MEDS ORDERED: fentaNYL 50 mcg/mL 1 mL Vial ONE ×2 (09:32→09:55)
[2023-02-15] MEDS ORDERED: Acetaminophen 325 MG TAB PO PRN (10:06)
[2023-02-15] MEDS ORDERED: diphenhydrAMINE 25 MG CAP PO PRN (10:06)
[2023-02-15] MEDS ORDERED: Aspirin 81 mg Enteric Coated Tablet PO SCH (10:15)
[2023-02-15] MEDS ORDERED: Morphine 4 MG/ML VIAL ONE (10:16)
[2023-02-15] MEDS ORDERED: Multivitamin W/ Minerals 1 TAB PO SCH (10:30)
[2023-02-15] MEDS ORDERED: Ferrous Gluconate 324 MG TAB PO SCH (10:30)
[2023-02-15] MEDS ORDERED: Senokot S 8.6-50 MG TAB PO SCH (10:30)
[2023-02-15] MEDS ORDERED: Labetalol HCl 100 MG/20 ML VIAL ONE (11:11)
[2023-02-15] MEDS ORDERED: Glucagon 1 MG/ML KIT IM PRN (11:30)
[2023-02-15] MEDS ORDERED: Dextrose 50% Abboject 50 ML SYRINGE IVP PRN (11:30)
[2023-02-15] MEDS ORDERED: HumaLOG 300 UNITS/3 ML VIAL SC SCH (11:30)
[2023-02-15] MEDS ORDERED: Dextrose 5% in Water 1,000 ML IV PRN (11:30)
[2023-02-15] MEDS ORDERED: traMADol HCl 50 MG TAB ONE (11:47)
[2023-02-15] MEDS: traMADol HCl 50 MG TAB PO PRN (11:50)
[2023-02-15] MEDS: Sucralfate 1 GM TAB PO SCH ×3 (13:40→21:43)
[2023-02-15] MEDS: CEFAZOLIN 2 GM in Sodium Chloride 0.9% 100 ML IVPB SCH ×2 (13:59→21:46)
[2023-02-15] MEDS ORDERED: Carbidopa/Levodopa 25-100 mg Tablet PO SCH (14:30)
[2023-02-15] MEDS: ALPRAZolam 0.5 MG TAB PO SCH ×2 (15:09→21:45)
[2023-02-15] MEDS: HYDROcodone/Acetaminophen 10/325 mg Tablet PO PRN (15:13)
[2023-02-15] MEDS: Icosapent Ethyl 1 GM CAPSULE PO SCH (18:33)
[2023-02-15 18:37] LABS: Glucose 143 mg/dL (83-110)
[2023-02-15] MEDS ORDERED: Insulin Glargine 30 UNITS/0.3 ML VIAL SC SCH (21:00)
[2023-02-15 21:13] LABS: Glucose 163 mg/dL (83-110)
[2023-02-15] MEDS: Carbidopa/Levodopa 25-100 mg Tablet PO SCH (21:42)
[2023-02-15] MEDS: Atorvastatin Calcium 40 MG TAB PO SCH (21:43)
[2023-02-15] MEDS: Senokot S 8.6-50 MG TAB PO SCH (21:43)
[2023-02-15] MEDS: Ferrous Gluconate 324 MG TAB PO SCH (21:43)
[2023-02-15] MEDS: Aspirin 81 mg Enteric Coated Tablet PO SCH (21:44)
[2023-02-15] MEDS: Gabapentin 300 MG CAP PO SCH (21:44)
[2023-02-15] MEDS: rOPINIRole HCl 1 MG TAB PO SCH (21:44)
[2023-02-15] MEDS: Donepezil HCl 10 MG TAB PO SCH (21:45)
[2023-02-15] MEDS: Insulin Glargine 30 UNITS/0.3 ML VIAL SC SCH (21:45)
[2023-02-15] MEDS: risperiDONE 1 MG TAB PO SCH (21:45)
[2023-02-16] MEDS: HYDROcodone/Acetaminophen 10/325 mg Tablet PO PRN ×4 (05:24→21:43)
[2023-02-16] MEDS: Levothyroxine 150 MCG TAB PO SCH (05:24)
[2023-02-16 05:34] LABS: #Monocytes 0.8 thou/uL (0.11-0.59); %Basophils 0.2 % (0.0-1.0); %Eosinophils 0.7 % (0.0-10.0); %Lymphocytes 16.2 % (21.0-51.0); %Monocytes 14.1 % (0.0-10.0); %Neutrophils 67.9 % (42.0-75.0); Hemoglobin 8.3 g/dL (12.0-16.0); Mean Corpuscular HGB CONC 33.2 g/dL (32.0-36.0); Mean Corpuscular Hemoglobin 29.3 pg (27.0-31.0); Mean Corpuscular Volume 88.3 fl (78.0-98.0); RBC Distribution Width 12.8 % (11.5-14.5); Red Blood Cell (RBC) Count 2.83 mill/uL (4.20-5.40); White Blood Cell (WBC) Count 5.8 10x3/uL (4.8-10.8)
[2023-02-16 05:35] LABS: Platelet Count 88 10x3/uL (130-400)
[2023-02-16 05:53] LABS: Anion Gap 12 mmol/L (10-20); BUN (Urea Nitrogen) 34 mg/dL (9.8-20.1); Calc. Creatinine Clearance 28 mL/min (70-130); Calcium 7.8 mg/dL (7.8-10.44); Carbon Dioxide 22 mmol/L (23-31); Chloride 104 mmol/L (98-107); Estimated GFR 22; Glucose 156 mg/dL (83-110); Sodium 134 mmol/L (136-145)
[2023-02-16] MEDS ORDERED: Levothyroxine 150 MCG TAB PO SCH (06:00)
[2023-02-16] MEDS: Isosorbide Mononitrate 30 MG ER.TAB PO SCH (08:39)
[2023-02-16] MEDS: Senokot S 8.6-50 MG TAB PO SCH ×2 (08:39→21:47)
[2023-02-16] MEDS: Carbidopa/Levodopa 25-100 mg Tablet PO SCH ×2 (08:39→21:48)
[2023-02-16] MEDS: Icosapent Ethyl 1 GM CAPSULE PO SCH ×2 (08:39→16:53)
[2023-02-16] MEDS: Multivitamin W/ Minerals 1 TAB PO SCH (08:39)
[2023-02-16] MEDS: DULoxetine 60 MG CAP PO SCH (08:39)
[2023-02-16] MEDS: Sucralfate 1 GM TAB PO SCH ×4 (08:40→21:47)
[2023-02-16] MEDS: ALPRAZolam 0.5 MG TAB PO SCH ×4 (08:40→21:47)
[2023-02-16] MEDS: Oxybutynin ER 5 MG TAB PO SCH (08:40)
[2023-02-16] MEDS: Estradiol 1 MG TAB PO SCH (08:40)
[2023-02-16] MEDS: Aspirin 81 mg Enteric Coated Tablet PO SCH ×2 (08:40→21:47)
[2023-02-16] MEDS: Fenofibrate Nanocrystallized 145 MG TAB PO SCH (08:40)
[2023-02-16] MEDS: Ferrous Gluconate 324 MG TAB PO SCH ×2 (08:40→21:48)
[2023-02-16] MEDS: Aripiprazole 10 MG TAB PO SCH (08:40)
[2023-02-16] MEDS: Insulin Glargine 30 UNITS/0.3 ML VIAL SC SCH ×2 (08:41→21:48)
[2023-02-16] MEDS: Gabapentin 300 MG CAP PO SCH ×2 (08:41→21:48)
[2023-02-16] MEDS ORDERED: Insulin Glargine 30 UNITS/0.3 ML VIAL SC SCH (09:00)
[2023-02-16] MEDS ORDERED: Furosemide 40 MG (4 mL) VIAL SLOW IVP SCH (16:30)
[2023-02-16] MEDS: Atorvastatin Calcium 40 MG TAB PO SCH (21:47)
[2023-02-16] MEDS: rOPINIRole HCl 1 MG TAB PO SCH (21:47)
[2023-02-16] MEDS: risperiDONE 1 MG TAB PO SCH (21:48)
[2023-02-16] MEDS: Donepezil HCl 10 MG TAB PO SCH (21:48)
[2023-02-17 05:56] LABS: Hematocrit 22.3 % (36.0-47.0); Hemoglobin 7.4 g/dL (12.0-16.0); Mean Corpuscular HGB CONC 33.2 g/dL (32.0-36.0); Mean Corpuscular Hemoglobin 29.5 pg (27.0-31.0); Mean Corpuscular Volume 88.8 fl (78.0-98.0); Mean Platelet Volume 11.4 fL (7.4-10.4); Red Blood Cell (RBC) Count 2.51 mill/uL (4.20-5.40); White Blood Cell (WBC) Count 6.5 10x3/uL (4.8-10.8)
[2023-02-17 05:57] LABS: Platelet Count 89 10x3/uL (130-400)
[2023-02-17] MEDS: Levothyroxine 150 MCG TAB PO SCH (06:03)
[2023-02-17] MEDS: Aripiprazole 10 MG TAB PO SCH (09:35)
[2023-02-17] MEDS: Sucralfate 1 GM TAB PO SCH ×4 (09:35→21:14)
[2023-02-17] MEDS: Estradiol 1 MG TAB PO SCH (09:35)
[2023-02-17] MEDS: Senokot S 8.6-50 MG TAB PO SCH ×2 (09:36→21:15)
[2023-02-17] MEDS: Insulin Glargine 30 UNITS/0.3 ML VIAL SC SCH ×2 (09:36→21:17)
[2023-02-17] MEDS: Isosorbide Mononitrate 30 MG ER.TAB PO SCH (09:36)
[2023-02-17] MEDS: Icosapent Ethyl 1 GM CAPSULE PO SCH ×2 (09:36→17:43)
[2023-02-17] MEDS: Fenofibrate Nanocrystallized 145 MG TAB PO SCH (09:36)
[2023-02-17] MEDS: ALPRAZolam 0.5 MG TAB PO SCH ×4 (09:36→21:14)
[2023-02-17] MEDS: Gabapentin 300 MG CAP PO SCH ×2 (09:37→21:15)
[2023-02-17] MEDS: DULoxetine 60 MG CAP PO SCH (09:37)
[2023-02-17] MEDS: Carbidopa/Levodopa 25-100 mg Tablet PO SCH ×2 (09:37→21:15)
[2023-02-17] MEDS: Aspirin 81 mg Enteric Coated Tablet PO SCH ×2 (09:37→21:16)
[2023-02-17] MEDS: Multivitamin W/ Minerals 1 TAB PO SCH (09:38)
[2023-02-17] MEDS: Oxybutynin ER 5 MG TAB PO SCH (09:38)
[2023-02-17] MEDS: Ferrous Gluconate 324 MG TAB PO SCH ×2 (09:38→21:13)
[2023-02-17] MEDS: LIRAGLUTIDE 0.6 MG/0.1 ML SC SCH (10:45)
[2023-02-17] MEDS: HumaLOG 300 UNITS/3 ML VIAL SC PRN ×2 (12:38→18:48)
[2023-02-17] MEDS: HYDROcodone/Acetaminophen 10/325 mg Tablet PO PRN (15:27)
[2023-02-17] MEDS ORDERED: Furosemide 20 MG (2 mL) VIAL SLOW IVP SCH (17:00)
[2023-02-17] MEDS: rOPINIRole HCl 1 MG TAB PO SCH (21:14)
[2023-02-17] MEDS: Donepezil HCl 10 MG TAB PO SCH (21:15)
[2023-02-17] MEDS: Atorvastatin Calcium 40 MG TAB PO SCH (21:15)
[2023-02-17] MEDS: risperiDONE 1 MG TAB PO SCH (21:17)
[2023-02-18] MEDS: Levothyroxine 150 MCG TAB PO SCH (05:23)
[2023-02-18 05:34] LABS: #Eosinphils 0.3 thou/uL (0.0-0.7); #Monocytes 0.7 thou/uL (0.11-0.59); #Neutrophils 4.6 thou/uL (1.40-6.50); %Basophils 0.3 % (0.0-1.0); %Eosinophils 4.9 % (0.0-10.0); %Monocytes 9.8 % (0.0-10.0); %Neutrophils 66.4 % (42.0-75.0); Hematocrit 23.1 % (36.0-47.0); Hemoglobin 7.5 g/dL (12.0-16.0); Mean Corpuscular HGB CONC 32.5 g/dL (32.0-36.0); Mean Corpuscular Hemoglobin 28.8 pg (27.0-31.0); Mean Corpuscular Volume 88.8 fl (78.0-98.0); Mean Platelet Volume 11.4 fL (7.4-10.4); RBC Distribution Width 13.1 % (11.5-14.5); White Blood Cell (WBC) Count 6.9 10x3/uL (4.8-10.8)
[2023-02-18 05:56] LABS: Anion Gap 13 mmol/L (10-20); BUN (Urea Nitrogen) 53 mg/dL (9.8-20.1); Calc. Creatinine Clearance 24 mL/min (70-130); Carbon Dioxide 24 mmol/L (23-31); Chloride 102 mmol/L (98-107); Estimated GFR 19; Glucose 205 mg/dL (83-110); Potassium 4.2 mmol/L (3.5-5.1); Sodium 135 mmol/L (136-145)
[2023-02-18 06:33] LABS: Platelet Count 99 10x3/uL (130-400)
[2023-02-18] MEDS: Aripiprazole 10 MG TAB PO SCH (08:48)
[2023-02-18] MEDS: Carbidopa/Levodopa 25-100 mg Tablet PO SCH ×2 (08:49→21:06)
[2023-02-18] MEDS: Aspirin 81 mg Enteric Coated Tablet PO SCH ×2 (08:49→21:07)
[2023-02-18] MEDS: Sucralfate 1 GM TAB PO SCH ×4 (08:49→21:08)
[2023-02-18] MEDS: Isosorbide Mononitrate 30 MG ER.TAB PO SCH (08:49)
[2023-02-18] MEDS: Oxybutynin ER 5 MG TAB PO SCH (08:49)
[2023-02-18] MEDS: Ferrous Gluconate 324 MG TAB PO SCH ×2 (08:50→21:06)
[2023-02-18] MEDS: Multivitamin W/ Minerals 1 TAB PO SCH (08:50)
[2023-02-18] MEDS: DULoxetine 60 MG CAP PO SCH (08:50)
[2023-02-18] MEDS: Fenofibrate Nanocrystallized 145 MG TAB PO SCH (08:50)
[2023-02-18] MEDS: ALPRAZolam 0.5 MG TAB PO SCH ×4 (08:50→21:07)
[2023-02-18] MEDS: Estradiol 1 MG TAB PO SCH (08:51)
[2023-02-18] MEDS: Icosapent Ethyl 1 GM CAPSULE PO SCH ×2 (08:51→17:50)
[2023-02-18] MEDS: Gabapentin 300 MG CAP PO SCH ×2 (08:51→21:07)
[2023-02-18] MEDS: Insulin Glargine 30 UNITS/0.3 ML VIAL SC SCH ×2 (08:52→23:21)
[2023-02-18] MEDS: Senokot S 8.6-50 MG TAB PO SCH ×2 (08:52→21:06)
[2023-02-18] MEDS: HYDROcodone/Acetaminophen 10/325 mg Tablet PO PRN (10:09)
[2023-02-18] MEDS: HumaLOG 300 UNITS/3 ML VIAL SC PRN ×2 (13:09→17:53)
[2023-02-18 18:23] LABS: Hematocrit 25.1 % (36.0-47.0); Hemoglobin 8.3 g/dL (12.0-16.0)
[2023-02-18] MEDS: rOPINIRole HCl 1 MG TAB PO SCH (21:07)
[2023-02-18] MEDS: Atorvastatin Calcium 40 MG TAB PO SCH (21:07)
[2023-02-18] MEDS: risperiDONE 1 MG TAB PO SCH (21:07)
[2023-02-18] MEDS: Donepezil HCl 10 MG TAB PO SCH (21:08)
[2023-02-18] MEDS ORDERED: Furosemide 20 MG (2 mL) VIAL SLOW IVP SCH (23:45)
[2023-02-19] MEDS: Levothyroxine 150 MCG TAB PO SCH (05:46)
[2023-02-19 05:48] LABS: #Eosinphils 0.3 thou/uL (0.0-0.7); #Monocytes 0.7 thou/uL (0.11-0.59); #Neutrophils 4.5 thou/uL (1.40-6.50); %Basophils 0.3 % (0.0-1.0); %Eosinophils 4.8 % (0.0-10.0); %Lymphocytes 18.8 % (21.0-51.0); %Monocytes 10.1 % (0.0-10.0); %Neutrophils 65.4 % (42.0-75.0); Hematocrit 26.4 % (36.0-47.0); Hemoglobin 8.7 g/dL (12.0-16.0); Mean Corpuscular Hemoglobin 28.6 pg (27.0-31.0); Mean Corpuscular Volume 86.8 fl (78.0-98.0); Mean Platelet Volume 10.9 fL (7.4-10.4); Platelet Count 135 10x3/uL (130-400); RBC Distribution Width 13.3 % (11.5-14.5); Red Blood Cell (RBC) Count 3.04 mill/uL (4.20-5.40); White Blood Cell (WBC) Count 6.9 10x3/uL (4.8-10.8)
[2023-02-19 06:30] LABS: Anion Gap 15 mmol/L (10-20); BUN (Urea Nitrogen) 58 mg/dL (9.8-20.1); Calc. Creatinine Clearance 23 mL/min (70-130); Calcium 8.1 mg/dL (7.8-10.44); Carbon Dioxide 21 mmol/L (23-31); Chloride 104 mmol/L (98-107); Estimated GFR 17; Glucose 191 mg/dL (83-110); Potassium 4.3 mmol/L (3.5-5.1); Sodium 136 mmol/L (136-145)
[2023-02-19 07:02] LABS: Glucose 184 mg/dL (83-110)
[2023-02-19] MEDS ORDERED: cefTRIAXone\\ROCEPHIN 2 GM in Sodium Chloride 0.9% 100 ML IVPB SCH (07:45)
[2023-02-19] MEDS: Icosapent Ethyl 1 GM CAPSULE PO SCH ×2 (08:49→16:47)
[2023-02-19] MEDS: Insulin Glargine 30 UNITS/0.3 ML VIAL SC SCH ×2 (08:49→21:38)
[2023-02-19] MEDS: ALPRAZolam 0.5 MG TAB PO SCH ×4 (08:50→21:37)
[2023-02-19] MEDS: Aspirin 81 mg Enteric Coated Tablet PO SCH ×2 (08:50→21:37)
[2023-02-19] MEDS: Sucralfate 1 GM TAB PO SCH ×4 (08:50→21:36)
[2023-02-19] MEDS: Senokot S 8.6-50 MG TAB PO SCH ×2 (08:50→21:36)
[2023-02-19] MEDS: Oxybutynin ER 5 MG TAB PO SCH (08:50)
[2023-02-19] MEDS: Estradiol 1 MG TAB PO SCH (08:50)
[2023-02-19] MEDS: Carbidopa/Levodopa 25-100 mg Tablet PO SCH ×2 (08:50→21:37)
[2023-02-19] MEDS: Ferrous Gluconate 324 MG TAB PO SCH ×2 (08:51→21:37)
[2023-02-19] MEDS: Aripiprazole 10 MG TAB PO SCH (08:51)
[2023-02-19] MEDS: DULoxetine 60 MG CAP PO SCH (08:51)
[2023-02-19] MEDS: Multivitamin W/ Minerals 1 TAB PO SCH (08:51)
[2023-02-19] MEDS: Fenofibrate Nanocrystallized 145 MG TAB PO SCH (08:51)
[2023-02-19] MEDS: Gabapentin 300 MG CAP PO SCH ×2 (08:51→21:38)
[2023-02-19] MEDS: Isosorbide Mononitrate 30 MG ER.TAB PO SCH (08:51)
[2023-02-19] MEDS ORDERED: Doxycycline 100 MG CAP PO SCH (12:15)
[2023-02-19] MEDS ORDERED: Benzonatate 100 MG CAP PO SCH (16:30)
[2023-02-19] MEDS ORDERED: Fluconazole 100 MG TAB PO SCH (16:30)
[2023-02-19] MEDS ORDERED: Furosemide 40 MG (4 mL) VIAL SLOW IVP SCH (20:00)
[2023-02-19] MEDS: Atorvastatin Calcium 40 MG TAB PO SCH (21:36)
[2023-02-19] MEDS: Donepezil HCl 10 MG TAB PO SCH (21:37)
[2023-02-19] MEDS: rOPINIRole HCl 1 MG TAB PO SCH (21:37)
[2023-02-19] MEDS: Benzonatate 100 MG CAP PO SCH (21:37)
[2023-02-19] MEDS: risperiDONE 1 MG TAB PO SCH (21:38)
[2023-02-19 22:43] LABS: Legionella Urinary Ag Negative (Negative); Strep pneumo Urine Ag NEGATIVE (NEGATIVE)
[2023-02-19] MEDS: Doxycycline 100 MG CAP PO SCH (23:37)
[2023-02-20] MEDS: Levothyroxine 150 MCG TAB PO SCH (05:17)
[2023-02-20] MEDS: Insulin Glargine 30 UNITS/0.3 ML VIAL SC SCH ×2 (08:57→20:06)
[2023-02-20] MEDS: Icosapent Ethyl 1 GM CAPSULE PO SCH ×2 (08:59→16:35)
[2023-02-20] MEDS: cefTRIAXone\\ROCEPHIN 1 GM in Sodium Chloride 0.9% 100 ML IVPB SCH (08:59)
[2023-02-20] MEDS: DULoxetine 60 MG CAP PO SCH (08:59)
[2023-02-20] MEDS: Ferrous Gluconate 324 MG TAB PO SCH ×2 (09:00→20:01)
[2023-02-20] MEDS: Estradiol 1 MG TAB PO SCH (09:00)
[2023-02-20] MEDS: Oxybutynin ER 5 MG TAB PO SCH (09:00)
[2023-02-20] MEDS: Fenofibrate Nanocrystallized 145 MG TAB PO SCH (09:00)
[2023-02-20] MEDS: Fluconazole 100 MG TAB PO SCH (09:00)
[2023-02-20] MEDS: ALPRAZolam 0.5 MG TAB PO SCH ×4 (09:00→20:00)
[2023-02-20] MEDS: Aripiprazole 10 MG TAB PO SCH (09:00)
[2023-02-20] MEDS: Benzonatate 100 MG CAP PO SCH ×3 (09:00→20:01)
[2023-02-20] MEDS: Multivitamin W/ Minerals 1 TAB PO SCH (09:00)
[2023-02-20] MEDS: Sucralfate 1 GM TAB PO SCH ×4 (09:00→20:01)
[2023-02-20] MEDS: Aspirin 81 mg Enteric Coated Tablet PO SCH ×2 (09:00→20:01)
[2023-02-20] MEDS: Carbidopa/Levodopa 25-100 mg Tablet PO SCH ×2 (09:00→20:01)
[2023-02-20] MEDS: Senokot S 8.6-50 MG TAB PO SCH ×2 (09:00→20:00)
[2023-02-20] MEDS: Isosorbide Mononitrate 30 MG ER.TAB PO SCH (09:01)
[2023-02-20] MEDS: Gabapentin 300 MG CAP PO SCH ×2 (09:01→20:01)
[2023-02-20] MEDS: Doxycycline 100 MG CAP PO SCH ×2 (10:25→23:35)
[2023-02-20] MEDS: traMADol HCl 50 MG TAB PO PRN (11:22)
[2023-02-20] MEDS: HumaLOG 300 UNITS/3 ML VIAL SC PRN (14:00)
[2023-02-20] MEDS ORDERED: Magnesium Citrate 300 ML BOT PO PRN (18:57)
[2023-02-20] MEDS ORDERED: Bisacodyl 10 MG SUPP PR SCH (19:00)
[2023-02-20] MEDS ORDERED: Bisacodyl 5 MG TAB PO SCH (20:00)
[2023-02-20] MEDS: risperiDONE 1 MG TAB PO SCH (20:01)
[2023-02-20] MEDS: rOPINIRole HCl 1 MG TAB PO SCH (20:01)
[2023-02-20] MEDS: Atorvastatin Calcium 40 MG TAB PO SCH (20:01)
[2023-02-20] MEDS: Donepezil HCl 10 MG TAB PO SCH (20:01)
[2023-02-21] MEDS: Levothyroxine 150 MCG TAB PO SCH (05:59)
[2023-02-21] MEDS: Icosapent Ethyl 1 GM CAPSULE PO SCH ×2 (10:02→17:13)
[2023-02-21] MEDS: DULoxetine 60 MG CAP PO SCH (10:03)
[2023-02-21] MEDS: Aspirin 81 mg Enteric Coated Tablet PO SCH ×2 (10:03→21:06)
[2023-02-21] MEDS: Sucralfate 1 GM TAB PO SCH ×4 (10:03→21:07)
[2023-02-21] MEDS: Isosorbide Mononitrate 30 MG ER.TAB PO SCH (10:03)
[2023-02-21] MEDS: Estradiol 1 MG TAB PO SCH (10:03)
[2023-02-21] MEDS: Carbidopa/Levodopa 25-100 mg Tablet PO SCH ×2 (10:03→21:06)
[2023-02-21] MEDS: ALPRAZolam 0.5 MG TAB PO SCH ×4 (10:03→21:08)
[2023-02-21] MEDS: Multivitamin W/ Minerals 1 TAB PO SCH (10:03)
[2023-02-21] MEDS: Aripiprazole 10 MG TAB PO SCH (10:03)
[2023-02-21] MEDS: Fenofibrate Nanocrystallized 145 MG TAB PO SCH (10:04)
[2023-02-21] MEDS: Gabapentin 300 MG CAP PO SCH ×2 (10:04→21:05)
[2023-02-21] MEDS: cefTRIAXone\\ROCEPHIN 1 GM in Sodium Chloride 0.9% 100 ML IVPB SCH (10:04)
[2023-02-21] MEDS: Fluconazole 100 MG TAB PO SCH (10:04)
[2023-02-21] MEDS: Ferrous Gluconate 324 MG TAB PO SCH ×2 (10:04→21:07)
[2023-02-21] MEDS: Benzonatate 100 MG CAP PO SCH ×3 (10:04→21:05)
[2023-02-21] MEDS: Insulin Glargine 30 UNITS/0.3 ML VIAL SC SCH ×2 (10:05→21:09)
[2023-02-21] MEDS: Oxybutynin ER 5 MG TAB PO SCH (10:05)
[2023-02-21] MEDS: Senokot S 8.6-50 MG TAB PO SCH ×2 (10:05→21:06)
[2023-02-21] MEDS: Doxycycline 100 MG CAP PO SCH ×3 (11:12→22:30)
[2023-02-21] MEDS: Donepezil HCl 10 MG TAB PO SCH (21:06)
[2023-02-21] MEDS: Atorvastatin Calcium 40 MG TAB PO SCH (21:06)
[2023-02-21] MEDS: rOPINIRole HCl 1 MG TAB PO SCH (21:07)
[2023-02-21] MEDS: risperiDONE 1 MG TAB PO SCH (21:07)
[2023-02-22] MEDS: HYDROcodone/Acetaminophen 10/325 mg Tablet PO PRN ×3 (01:29→22:43)
[2023-02-22] MEDS: Levothyroxine 150 MCG TAB PO SCH (06:22)
[2023-02-22] MEDS: DULoxetine 60 MG CAP PO SCH (09:19)
[2023-02-22] MEDS: Icosapent Ethyl 1 GM CAPSULE PO SCH ×2 (09:19→17:10)
[2023-02-22] MEDS: Gabapentin 300 MG CAP PO SCH ×2 (09:19→22:41)
[2023-02-22] MEDS: Isosorbide Mononitrate 30 MG ER.TAB PO SCH (09:19)
[2023-02-22] MEDS: Aripiprazole 10 MG TAB PO SCH (09:19)
[2023-02-22] MEDS: Fenofibrate Nanocrystallized 145 MG TAB PO SCH (09:19)
[2023-02-22] MEDS: Benzonatate 100 MG CAP PO SCH ×3 (09:19→22:40)
[2023-02-22] MEDS: Carbidopa/Levodopa 25-100 mg Tablet PO SCH ×2 (09:19→22:42)
[2023-02-22] MEDS: Senokot S 8.6-50 MG TAB PO SCH ×2 (09:19→22:41)
[2023-02-22] MEDS: ALPRAZolam 0.5 MG TAB PO SCH ×4 (09:19→22:45)
[2023-02-22] MEDS: Multivitamin W/ Minerals 1 TAB PO SCH (09:20)
[2023-02-22] MEDS: Sucralfate 1 GM TAB PO SCH ×4 (09:20→22:40)
[2023-02-22] MEDS: Ferrous Gluconate 324 MG TAB PO SCH ×2 (09:20→22:40)
[2023-02-22] MEDS: Fluconazole 100 MG TAB PO SCH (09:20)
[2023-02-22] MEDS: Insulin Glargine 30 UNITS/0.3 ML VIAL SC SCH ×2 (09:20→22:45)
[2023-02-22] MEDS: Aspirin 81 mg Enteric Coated Tablet PO SCH ×2 (09:20→22:42)
[2023-02-22] MEDS: Estradiol 1 MG TAB PO SCH (09:20)
[2023-02-22] MEDS: Oxybutynin ER 5 MG TAB PO SCH (09:20)
[2023-02-22] MEDS: cefTRIAXone\\ROCEPHIN 1 GM in Sodium Chloride 0.9% 100 ML IVPB SCH (09:21)
[2023-02-22 11:31] LABS: #Eosinphils 0.3 thou/uL (0.0-0.7); #Monocytes 0.5 thou/uL (0.11-0.59); #Neutrophils 2.4 thou/uL (1.40-6.50); %Basophils 0.4 % (0.0-1.0); %Eosinophils 7.2 % (0.0-10.0); %Lymphocytes 26.5 % (21.0-51.0); %Monocytes 11.7 % (0.0-10.0); %Neutrophils 53.3 % (42.0-75.0); Hematocrit 28.5 % (36.0-47.0); Hemoglobin 9.1 g/dL (12.0-16.0); Mean Corpuscular HGB CONC 31.9 g/dL (32.0-36.0); Mean Corpuscular Hemoglobin 29.3 pg (27.0-31.0); Mean Corpuscular Volume 91.6 fl (78.0-98.0); Mean Platelet Volume 10.5 fL (7.4-10.4); Platelet Count 164 10x3/uL (130-400); RBC Distribution Width 13.1 % (11.5-14.5); Red Blood Cell (RBC) Count 3.11 mill/uL (4.20-5.40); White Blood Cell (WBC) Count 4.5 10x3/uL (4.8-10.8)
[2023-02-22 11:53] LABS: Anion Gap 12 mmol/L (10-20); BUN (Urea Nitrogen) 76 mg/dL (9.8-20.1); Calc. Creatinine Clearance 26 mL/min (70-130); Calcium 8.4 mg/dL (7.8-10.44); Carbon Dioxide 24 mmol/L (23-31); Chloride 102 mmol/L (98-107); Estimated GFR 20; Glucose 186 mg/dL (83-110); Potassium 5.3 mmol/L (3.5-5.1); Sodium 133 mmol/L (136-145)
[2023-02-22] MEDS ORDERED: Sodium Polystyrene Sulfonate 15 GM (60 mL) BOT PO SCH (12:15)
[2023-02-22] MEDS ORDERED: Dextrose 50% Abboject 50 ML SYRINGE SLOW IVP SCH (12:15)
[2023-02-22] MEDS ORDERED: Albuterol 2.5 MG (3 mL) NEB NEB SCH (12:15)
[2023-02-22] MEDS ORDERED: Insulin Regular 300 UNITS/3 ML VIAL IVP SCH (12:15)
[2023-02-22] MEDS: Doxycycline 100 MG CAP PO SCH ×2 (12:21→23:54)
[2023-02-22] MEDS: HumaLOG 300 UNITS/3 ML VIAL SC PRN (17:10)
[2023-02-22] MEDS: Donepezil HCl 10 MG TAB PO SCH (22:40)
[2023-02-22] MEDS: Atorvastatin Calcium 40 MG TAB PO SCH (22:40)
[2023-02-22] MEDS: risperiDONE 1 MG TAB PO SCH (22:45)
[2023-02-22] MEDS: rOPINIRole HCl 1 MG TAB PO SCH (22:55)
[2023-02-23] MEDS: Levothyroxine 150 MCG TAB PO SCH (06:00)
[2023-02-23 08:17] VITALS: BP 118/69; TEMP 97.6
[2023-02-23] MEDS: Fenofibrate Nanocrystallized 145 MG TAB PO SCH (08:38)
[2023-02-23] MEDS: Carbidopa/Levodopa 25-100 mg Tablet PO SCH (08:38)
[2023-02-23] MEDS: Senokot S 8.6-50 MG TAB PO SCH (08:38)
[2023-02-23] MEDS: Aspirin 81 mg Enteric Coated Tablet PO SCH (08:39)
[2023-02-23] MEDS: Sucralfate 1 GM TAB PO SCH (08:39)
[2023-02-23] MEDS: Gabapentin 300 MG CAP PO SCH (08:39)
[2023-02-23] MEDS: Benzonatate 100 MG CAP PO SCH (08:39)
[2023-02-23] MEDS: Estradiol 1 MG TAB PO SCH (08:39)
[2023-02-23] MEDS: DULoxetine 60 MG CAP PO SCH (08:39)
[2023-02-23] MEDS: Oxybutynin ER 5 MG TAB PO SCH (08:39)
[2023-02-23] MEDS: Multivitamin W/ Minerals 1 TAB PO SCH (08:39)
[2023-02-23] MEDS: Aripiprazole 10 MG TAB PO SCH (08:39)
[2023-02-23] MEDS: Insulin Glargine 30 UNITS/0.3 ML VIAL SC SCH (08:40)
[2023-02-23] MEDS: Ferrous Gluconate 324 MG TAB PO SCH (08:40)
[2023-02-23] MEDS: Isosorbide Mononitrate 30 MG ER.TAB PO SCH (08:40)
[2023-02-23] MEDS: Fluconazole 100 MG TAB PO SCH (08:40)
[2023-02-23] MEDS: Icosapent Ethyl 1 GM CAPSULE PO SCH (09:06)
[2023-02-23] MEDS: ALPRAZolam 0.5 MG TAB PO SCH (09:06)
== END 2023-02-23 10:02 | DRG 469 ==
LOC: SDC 05:32 → SURG A 10:06 → OBSVTOIN 02-16 07:26
PROVIDERS: ADMIT Orthopaedic Surgery; ATTEND Orthopaedic Surgery
PROC: 0SRC0J9 Replacement of Right Knee Joint with Synthetic Substitute, Cemented, Open Approach (ICD-10-PCS; principal; 2023-02-15)
PROC: 30233N1 Transfusion of Nonautologous Red Blood Cells into Peripheral Vein, Percutaneous Approach (ICD-10-PCS; 2023-02-18)
DX: M17.11 Unilateral primary osteoarthritis, right knee (principal); J18.9 Pneumonia, unspecified organism; J96.01 Acute respiratory failure with hypoxia; E87.1 Hypo-osmolality and hyponatremia; N18.4 Chronic kidney disease, stage 4 (severe); F41.9 Anxiety disorder, unspecified; F32.A Depression, unspecified; E03.9 Hypothyroidism, unspecified; E78.5 Hyperlipidemia, unspecified; I25.10 Atherosclerotic heart disease of native coronary artery without angina pectoris; M21.061 Valgus deformity, not elsewhere classified, right knee; M21.261 Flexion deformity, right knee; G20.A1 Parkinson's disease without dyskinesia, without mention of fluctuations; E11.40 Type 2 diabetes mellitus with diabetic neuropathy, unspecified; E11.22 Type 2 diabetes mellitus with diabetic chronic kidney disease; E87.70 Fluid overload, unspecified; E87.6 Hypokalemia; R41.0 Disorientation, unspecified; Z95.5 Presence of coronary angioplasty implant and graft; Z90.49 Acquired absence of other specified parts of digestive tract; Z90.710 Acquired absence of both cervix and uterus; Z98.890 Other specified postprocedural states; Z86.73 Personal history of transient ischemic attack (TIA), and cerebral infarction without residual deficits; Z79.899 Other long term (current) drug therapy
CPT/HCPCS: 36415; 36416; 36430; 71045; 80048; 82947; 84145; 85025; 85027; 86850; 86870; 86900; 86901; 86905; 86922; 87449; 87899; 94640; A4306; C1713; C1776; J0171; J0696; J1200; J1815; J1940; J2001; J2250; J2270; J2405; J2704; J2795; J3010; J3370; J3490; J7611; J7999; P9016; S0020

== ENCOUNTER 2023-04-01 11:14 | Emergency (ER) | payer MEDICARE ==
[2023-04-01 12:14] LABS: #Eosinphils 0.5 thou/uL (0.0-0.7); #Monocytes 0.6 thou/uL (0.11-0.59); #Neutrophils 4.1 thou/uL (1.40-6.50); %Basophils 0.1 % (0.0-1.0); %Eosinophils 7.5 % (0.0-10.0); %Lymphocytes 21.6 % (21.0-51.0); %Monocytes 8.7 % (0.0-10.0); %Neutrophils 61.2 % (42.0-75.0); Hematocrit 25.7 % (36.0-47.0); Hemoglobin 8.4 g/dL (12.0-16.0); Mean Corpuscular HGB CONC 32.7 g/dL (32.0-36.0); Mean Corpuscular Hemoglobin 29.4 pg (27.0-31.0); Mean Corpuscular Volume 89.9 fl (78.0-98.0); Mean Platelet Volume 10.5 fL (7.4-10.4); Platelet Count 103 10x3/uL (130-400); RBC Distribution Width 14.3 % (11.5-14.5); Red Blood Cell (RBC) Count 2.86 mill/uL (4.20-5.40); White Blood Cell (WBC) Count 6.7 10x3/uL (4.8-10.8)
[2023-04-01 12:42] LABS: ALT (SGPT) Less than 7 U/L (8-55); AST (SGOT) 24 U/L (5-34); Albumin 2.9 g/dL (3.4-4.8); Alkaline Phosphatase 67 U/L (40-110); Anion Gap 11 mmol/L (10-20); BUN (Urea Nitrogen) 38 mg/dL (9.8-20.1); Bilirubin, Total 0.4 mg/dL (0.2-1.2); Calc. Creatinine Clearance 0 mL/min (70-130); Calcium 7.5 mg/dL (7.8-10.44); Carbon Dioxide 21 mmol/L (23-31); Chloride 106 mmol/L (98-107); Estimated GFR 19; Globulin 2.7 g/dL (2.4-3.5); Glucose 258 mg/dL (83-110); Potassium 4.2 mmol/L (3.5-5.1); Protein, Total 5.6 g/dL (5.8-8.1); Sodium 134 mmol/L (136-145)
== END 2023-04-01 16:22 | disposition home or self-care (01) ==
LOC: ERS 11:14
DX: M79.661 Pain in right lower leg (principal); I10 Essential (primary) hypertension; E11.9 Type 2 diabetes mellitus without complications; Z79.82 Long term (current) use of aspirin; Z79.84 Long term (current) use of oral hypoglycemic drugs; Z79.4 Long term (current) use of insulin; E78.5 Hyperlipidemia, unspecified; Z79.899 Other long term (current) drug therapy
CPT/HCPCS: 36415; 72170; 80053; 85025; 86140; 87040